=== PATIENT | female | born 1930 | race Caucasian/White ===

== ENCOUNTER 2016-10-28 18:43 | Inpatient (IN) | payer MEDICARE, OTHER ==
[2016-10-28] MEDS ORDERED: FENTANYL CITRATE INJ/PF 100 MCG/2 ML AMPUL IV ONE ×2 (19:08→21:11)
--- NOTE | 2016-10-28 19:32 | ER Document Report ---
ED Fall - General Mode of Arrival: Medic Information source: Patient TRAVEL OUTSIDE OF THE [place] IN LAST 30 DAYS: No - HPI Patient complains to provider of: Left hip pain Occurred: This evening Where: Outdoors Context: Tripped Associated symptoms: Other - see notes above. denies: Lost consciousness Location of injury/pain: Hip - left <AMOR BOTELLO - Last Filed: 10/29/16 03:25> <EVIE ESTRADA - Last Filed: 10/29/16 03:51> - General Chief Complaint: Hip Pain Stated Complaint: FALL/LEG PAIN Time Seen by Provider: 10/28/16 19:00 Notes: 86 year old female presents to the ED via EMS complaining of left hip pain secondary to a fall that occurred earlier this evening. Patient reports that she was at a friend's house and was climbing up the outdoor steps when she tripped and fell on the concrete. Patient denies hitting her head or loss of consciousness. Patient states that she was unable to get herself up. Patient denies any abdominal, neck, or back pain. Patient is not on any blood thinning medications. PCP: Dr. Gonzalez (AMOR BOTELLO) - Related data Allergies/Adverse Reactions: Penicillins Allergy (Verified 10/28/16 19:07) Home Medications: Current Home Medications Cholecalciferol (Vitamin D3) [Vitamin D3] 50,000 units PO ASDIR PRN 10/28/16 [ History] Losartan Potassium [Cozaar 25 mg Tablet] 25 mg PO DAILY 10/28/16 [History] Meclizine HCl [Antivert 25 mg Tablet] 25 mg PO DAILYP PRN 10/28/16 [History] Past Medical History - General Information source: Patient - Social History Smoking Status: Unknown if Ever Smoked Family History: Reviewed & Not Pertinent - Past Medical History Cardiac Medical History: Reports: Hx Hypertension Pulmonary Medical History: Reports: Hx Pneumonia - 1997 AFTER SURGERY Musculoskeltal Medical History: Denies Hx Arthritis Past Surgical History: Reports: Hx Breast Surgery - biopsy, Hx Cholecystectomy, Hx Gynecologic Surgery, Hx Hysterectomy, Hx Thyroid Surgery - Immunizations Hx Diphtheria, Pertussis, Tetanus Vaccination: Yes - Mar Hx Pneumococcal Vaccination: 06/20/03 <AMOR BOTELLO - Last Filed: 10/29/16 03:25> Review of Systems - Review of Systems Constitutional: No symptoms reported EENT: No symptoms reported Cardiovascular: No symptoms reported Respiratory: No symptoms reported Gastrointestinal: No symptoms reported. denies: Abdominal pain Genitourinary: No symptoms reported Female Genitourinary: No symptoms reported Musculoskeletal: See HPI, Joint pain - left hip pain. denies: Back pain, Neck pain Skin: No symptoms reported Hematologic/Lymphatic: No symptoms reported Neurological/Psychological: No symptoms reported. denies: Lost consciousness -: Yes All other systems reviewed and negative <AMOR BOTELLO - Last Filed: 10/29/16 03:25> Physical Exam - General General appearance: Alert In distress: None - HEENT Head: Normocephalic, Atraumatic Eyes: Normal Extraocular movements intact: Yes Pupils: PERRL - Respiratory Respiratory status: No respiratory distress Breath sounds: Normal - Cardiovascular Rhythm: Regular Heart sounds: Normal auscultation - Abdominal Inspection: Normal Distension: No distension Tenderness: Nontender - Back Back: Normal, Nontender - Extremities General upper extremity: Normal inspection, Normal ROM General lower extremity: No: Normal inspection - see hip exam Hip: Other - Pain with palpation of the posterior pelvis on the left side. Good pulses and perfusion no obvious deformity or bony tenderness to the femur knee or distal extremity.. No: Normal - Neurological Neuro grossly intact: Yes Cognition: Normal Orientation: AAOx4 Deanna Coma Scale Eye Opening: Spontaneous Concord Coma Scale Verbal: Oriented Concord Coma Scale Motor: Obeys Commands Concord Coma Scale Total: 15 Speech: Normal - Psychological Associated symptoms: Normal affect, Normal mood - Skin Skin Temperature: Warm Skin Moisture: Dry Skin Color: Normal <AMOR BOTELLO - Last Filed: 10/29/16 03:25> Course - Laboratory Result Diagrams: 10/28/16 20:00 10/28/16 20:00 - Consults Dr. Tejeda Time consulted: 20:50 Dr. Gaffney Time consulted: 20:50 <AMOR BOTELLO - Last Filed: 10/29/16 03:25> - Laboratory Result Diagrams: 10/28/16 20:00 10/28/16 20:00 <EVIE ESTRADA - Last Filed: 10/29/16 03:51> - Re-evaluation Re-evalutation: 10/28/16 21:12 Patient presents emergency department with mechanical fall down a step and pain to left hip and pelvis area. She did not hit her head or lose consciousness on examination she has a GCS of 15 is awake alert with no external signs of trauma to her head neck chest abdomen pelvis and thoracolumbar spine. Pain with palpation of the posterior pelvis on the left side good pulses and perfusion no obvious deformity or bony tenderness to the femur knee or distal extremity. X- ray showed likely a pelvic fracture medical workup nonacute. Spoke with Dr. 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 (EVIE ESTRADA) - Vital Signs Vital signs: Temp Pulse Resp BP Pulse Ox 98.1 F 92 18 125/62 94 10/28/16 22:50 10/28/16 22:50 10/28/16 22:50 10/28/16 22:50 10/28/16 22:50 - Laboratory Laboratory results interpreted by me: 10/28/16 10/28/16 20:00 20:00 WBC 11.3 H RDW 14.7 H Sodium 131.5 L Glucose 126 H - Consults Dr. Tejeda Reason for consultation: 10/29/16 20:50 Dr. Tejeda was paged with no answer. 10/29/16 21:00 Patient was discussed with Dr. Tejeda and states to admit the patient to the hospitalist. (AMOR BOTELLO) Dr. Gaffney Reason for consultation: 10/29/16 20:50 Patient was discussed with Dr. Gaffney who agrees to admit the patient since the patient is not ambulatory. (AMOR BOTELLO) Critical Care Note - Critical Care Note Total time excluding time spent on procedures (mins): 45 <EVIE ESTRADA - Last Filed: 10/29/16 03:51> Discharge <AMOR BOTELLO - Last Filed: 10/29/16 03:25> - Discharge Admitting Provider: Hospitalist Unit Admitted: Medical Floor <EVIE ESTRADA - Last Filed: 10/29/16 03:51> - Discharge Clinical Impression: acute fall with pelvic fracture Condition: Stable Disposition: ADMITTED OBSERVATION Scribe Attestation: 10/28/16 21:12 I personally performed the services described in the documentation reviewed the documentation recorded by my scribe in my presence and it accurately and completely records my words and actions (EVIE ESTRADA) Scribe Documentation - Scribe Written by Rika:: Rika Jones, [id number]/[id number] acting as scribe for :: Loc <AMOR BOTELLO - Last Filed: 10/29/16 03:25>
[2016-10-28 20:11] LABS: ABSOLUTE EOSINOPHILS # (AUTO) 0.2 10^3/uL (0.0-0.6); ABSOLUTE LYMPHOCYTES (AUTO) 1.9 10^3/uL (0.5-4.7); ABSOLUTE NEUT (AUTO) 8.2 10^3/uL (1.7-8.2); BASOPHILS % (AUTO) 0.4 % (0-2); EOSINOPHILS % (AUTO) 1.5 % (0-6); HEMATOCRIT 39.3 % (36.0-47.0); HGB HCT DIFFERENCE -0.3; LYMPHOCYTES % (AUTO) 16.5 % (13-45); MEAN CORPUSCULAR HEMOGLOBIN 28.1 pg (27.0-33.4); MEAN CORPUSCULAR HGB CONC 33.2 g/dL (32.0-36.0); MEAN CORPUSCULAR VOLUME 85 fl (80-97); MONOCYTES % (AUTO) 9.1 % (3-13); RED BLOOD COUNT 4.65 10^6/uL (3.72-5.28); RED CELL DISTRIBUTION WIDTH 14.7 % (11.5-14.0); SEGMENTED NEUTROPHILS % (AUTO) 72.5 % (42-78); WHITE BLOOD COUNT 11.3 10^3/uL (4.0-10.5)
--- NOTE | 2016-10-28 20:13 | RADIOLOGY REPORT (SQ) ---
EXAM DESCRIPTION: CHEST SINGLE VIEW COMPLETED DATE/TIME: 10/28/2016 7:45 pm REASON FOR STUDY: fall likely hip fracture COMPARISON: 05/27/2012 EXAM PARAMETERS: NUMBER OF VIEWS: One view. TECHNIQUE: Single frontal radiographic view of the chest acquired. RADIATION DOSE: NA LIMITATIONS: None. FINDINGS: LUNGS AND PLEURA: No acute opacities, masses or pneumothorax. No pleural effusion. MEDIASTINUM AND HILAR STRUCTURES: Stable, hiatus hernia. HEART AND VASCULAR STRUCTURES: Stable. BONES: No acute findings. HARDWARE: None in the chest. OTHER: No other significant finding. IMPRESSION: NO ACUTE RADIOGRAPHIC FINDING IN THE CHEST. TECHNICAL DOCUMENTATION: JOB ID: [id number]
--- NOTE | 2016-10-28 20:15 | RADIOLOGY REPORT (SQ) ---
EXAM DESCRIPTION: HIP LEFT AP/LATERAL COMPLETED DATE/TIME: 10/28/2016 7:45 pm REASON FOR STUDY: fall deformity COMPARISON: None. NUMBER OF VIEWS: Two views. TECHNIQUE: AP pelvis and additional frog-leg view of the left hip. LIMITATIONS: None. FINDINGS: MINERALIZATION: Normal. LEFT HIP: No fracture or dislocation. No worrisome bone lesions. RIGHT HIP: No fracture or dislocation. No worrisome bone lesions. PUBIS AND ISCHIUM: Left pubic and ischial rami fractures, minimal displacement. PELVIS: No additional fracture. SACRUM: No fracture or dislocation. No worrisome bone lesions. LOWER LUMBAR SPINE: No fracture or dislocation. No worrisome bone lesions. No significant disc disea se. SOFT TISSUES: No findings. OTHER: No other significant finding. IMPRESSION: Left pubic and ischial rami fractures, minimal displacement. No evidence for femoral fr acture. TECHNICAL DOCUMENTATION: JOB ID: [id number] [employer]- All Rights Reserved
[2016-10-28 20:33] LABS: ANION GAP 10 (5-19); BLOOD UREA NITROGEN 16 mg/dL (7-20); CALCIUM 9.2 mg/dL (8.4-10.2); CARBON DIOXIDE 24 mmol/L (22-30); CHLORIDE 98 mmol/L (98-107); CREATININE RESULT 0.76 mg/dL (0.52-1.25); GLUCOSE 126 mg/dL (75-110); POTASSIUM 4.4 mmol/L (3.6-5.0); SODIUM 131.5 mmol/L (137-145)
[2016-10-28] MEDS ORDERED: HYDRALAZINE HCL INJ/PF 20 MG/1 ML SDV IV PRN (21:25)
[2016-10-28] MEDS ORDERED: FENTANYL CITRATE INJ/PF 100 MCG/2 ML AMPUL IV PRN (21:25)
[2016-10-28] MEDS ORDERED: ACETAMINOPHEN 325 MG TABLET PO PRN (21:25)
[2016-10-28] MEDS ORDERED: MAG HYDROX/AL HYDROX/SIMETH SUSP 30 ML UDCUP PO PRN (21:25)
[2016-10-28] MEDS ORDERED: NORMAL SALINE 1000 ML 1,000 ML IV ONE (21:28)
[2016-10-28] MEDS ORDERED: HEPARIN SOD (PORCINE) 5,000 UNIT/ML 1 ML SYRINGE SUBCUT ONE (22:45)
--- NOTE | 2016-10-28 23:38 | PDOC H&P ---
History of Present Illness Admission Date/PCP: 10/28/16 21:25 EILA IBARRA MD Patient complains of: Left-sided hip pain History of Present Illness: SANTIAGO GLEZ is a 86 year old female past medical history of hypertension who had been in her usual state of health until 1 hour prior to presentation. Patient tripped on a step resulting in fall and left-sided hip pain. She denies preceding dizziness, palpitations or blurred vision. She denies additional trauma, loss of consciousness or incontinence. In the emergency room she requires narcotic analgesic for intractable pain and unable to bear weight for a left sided pubic and ischial rami fracture with minimal displacement. She is referred to the hospitalist for admission. She denies new medications and is otherwise felt well. Past Medical History Cardiac Medical History: Reports: Hyperlipidema, Hypertension Denies: Coronary Artery Disease, Myocardial Infarction Pulmonary Medical History: Reports: Pneumonia - 1997 AFTER SURGERY Denies: Asthma, Bronchitis, Chronic Obstructive Pulmonary Disease (COPD) Neurological Medical History: Denies: Seizures GI Medical History: Denies: Hepatitis, Hiatal Hernia Musculoskeltal Medical History: Denies: Arthritis Hematology: Reports: Anemia Denies: Sickle Cell Disease Past Surgical History Past Surgical History: Reports: Cholecystectomy, Hysterectomy Denies: Amputation, Mastectomy, Pacemaker Social History Information Source: Patient Lives with: Alone Smoking Status: Unknown if Ever Smoked Frequency of Alcohol Use: None - Advance Directive Resuscitation Status: Full Code Family History Family History: Hypertension Parental Family History Reviewed: Yes Children Family History Reviewed: Yes Sibling(s) Family History Reviewed.: Yes Medication/Allergy Home Medications: Cholecalciferol (Vitamin D3) [Vitamin D3] 50,000 units PO ASDIR PRN 10/28/16 Losartan Potassium [Cozaar 25 mg Tablet] 25 mg PO DAILY 10/28/16 Meclizine HCl [Antivert 25 mg Tablet] 25 mg PO DAILYP PRN 10/28/16 Allergies/Adverse Reactions: Penicillins Allergy (Verified 10/28/16 19:07) Review of Systems Constitutional: ABSENT: chills, fever(s), headache(s), weight gain, weight loss Eyes: ABSENT: visual disturbances Ears: ABSENT: hearing changes Cardiovascular: ABSENT: chest pain, dyspnea on exertion, edema, orthropnea, palpitations Respiratory: ABSENT: cough, hemoptysis Gastrointestinal: ABSENT: abdominal pain, constipation, diarrhea, hematemesis, hematochezia, nausea, vomiting Genitourinary: ABSENT: dysuria, hematuria Musculoskeletal: ABSENT: joint swelling Integumentary: ABSENT: rash, wounds Neurological: ABSENT: abnormal gait, abnormal speech, confusion, dizziness, focal weakness, syncope Psychiatric: ABSENT: anxiety, depression, homidical ideation, suicidal ideation Endocrine: ABSENT: cold intolerance, heat intolerance, polydipsia, polyuria Hematologic/Lymphatic: ABSENT: easy bleeding, easy bruising Physical Exam Vital Signs: Temp Pulse Resp BP Pulse Ox 98.1 F 92 18 125/62 94 10/28/16 22:50 10/28/16 22:50 10/28/16 22:50 10/28/16 22:50 10/28/16 22:50 Intake & Output 10/27/16 10/28/16 10/29/16 11:59 11:59 11:59 Weight 75 kg General appearance: PRESENT: no acute distress, well-developed, well-nourished Head exam: PRESENT: atraumatic, normocephalic Eye exam: PRESENT: conjunctiva pink, EOMI, PERRLA. ABSENT: scleral icterus Ear exam: PRESENT: normal external ear exam Mouth exam: PRESENT: moist, tongue midline Neck exam: ABSENT: carotid bruit, JVD, lymphadenopathy, thyromegaly Respiratory exam: PRESENT: clear to auscultation abelardo. ABSENT: rales, rhonchi, wheezes Cardiovascular exam: PRESENT: RRR. ABSENT: diastolic murmur, rubs, systolic murmur Pulses: PRESENT: normal dorsalis pedis pul Vascular exam: PRESENT: normal capillary refill GI/Abdominal exam: PRESENT: normal bowel sounds, soft. ABSENT: distended, guarding, mass, organolmegaly, rebound, tenderness Rectal exam: PRESENT: deferred Extremities exam: PRESENT: full ROM, tenderness - Left lower extremity pain with active movement. ABSENT: calf tenderness, clubbing, pedal edema Neurological exam: PRESENT: alert, awake, oriented to person, oriented to place , oriented to time, oriented to situation, CN II-XII grossly intact. ABSENT: motor sensory deficit Psychiatric exam: PRESENT: appropriate affect, normal mood. ABSENT: homicidal ideation, suicidal ideation Skin exam: PRESENT: dry, intact, warm. ABSENT: cyanosis, rash Results Impressions: Chest X-Ray 10/28/16 19:07 IMPRESSION: NO ACUTE RADIOGRAPHIC FINDING IN THE CHEST. Hip X-Ray 10/28/16 19:08 IMPRESSION: Left pubic and ischial rami fractures, minimal displacement. No evidence for femoral fracture. Assessment & Plan - Diagnosis (1) Pelvic fracture Is this a current diagnosis for this admission?: YesPlan: Symptomatic management, immobilization, orthopedic surgery consultation and physical therapy (2) Gait disorder Is this a current diagnosis for this admission?: YesPlan: Narrative pelvic fracture physical therapy consult ordered (3) Intractable pain Is this a current diagnosis for this admission?: YesPlan: Tylenol, Toradol and fentanyl as needed with bowel regiment - Time Time Spent: 30 to 50 Minutes - Inpatient Certification Medical Necessity: Need Close Monitoring Due to Risk of Patient Decompensation
[2016-10-29] MEDS: KETOROLAC TROMETHAMINE INJ/PF 30 MG/1 ML SDV IV PRN ×3 (03:21→18:36)
[2016-10-29 04:59] LABS: ABSOLUTE LYMPHOCYTES (AUTO) 0.6 10^3/uL (0.5-4.7); ABSOLUTE MONOCYTES (AUTO) 0.8 10^3/uL (0.1-1.4); ABSOLUTE NEUT (AUTO) 7.9 10^3/uL (1.7-8.2); BASOPHILS % (AUTO) 0.3 % (0-2); HEMATOCRIT 33.6 % (36.0-47.0); HEMOGLOBIN 11.4 g/dL (12.0-15.5); HGB HCT DIFFERENCE 0.6; LYMPHOCYTES % (AUTO) 6.9 % (13-45); MEAN CORPUSCULAR HEMOGLOBIN 28.7 pg (27.0-33.4); MEAN CORPUSCULAR VOLUME 85 fl (80-97); MONOCYTES % (AUTO) 8.3 % (3-13); RED BLOOD COUNT 3.98 10^6/uL (3.72-5.28); RED CELL DISTRIBUTION WIDTH 14.6 % (11.5-14.0); SEGMENTED NEUTROPHILS % (AUTO) 84.5 % (42-78); WHITE BLOOD COUNT 9.3 10^3/uL (4.0-10.5)
[2016-10-29] MEDS: HEPARIN SOD (PORCINE) 5,000 UNIT/ML 1 ML SYRINGE SUBCUT SCH ×3 (05:10→21:54)
[2016-10-29 05:22] LABS: ANION GAP 6 (5-19); BLOOD UREA NITROGEN 17 mg/dL (7-20); CALCIUM 8.3 mg/dL (8.4-10.2); CARBON DIOXIDE 21 mmol/L (22-30); CHLORIDE 103 mmol/L (98-107); CREATININE RESULT 0.74 mg/dL (0.52-1.25); GLUCOSE 128 mg/dL (75-110); POTASSIUM 4.5 mmol/L (3.6-5.0); SODIUM 130.1 mmol/L (137-145)
[2016-10-29] MEDS: LOSARTAN POTASSIUM 25 MG TABLET PO SCH (09:53)
[2016-10-29] MEDS: DOCUSATE SODIUM 100 MG CAPSULE PO SCH ×2 (09:53→18:33)
--- NOTE | 2016-10-29 10:32 | PDOC CONSULTATION ---
History of Present Illness Admission Date/PCP: 10/28/16 21:25 ELIA IBARRA MD Patient complains of: Left hip pain History of Present Illness: SANTIAGO GLEZ is a 86 year old female who sustained a fall after tripping over a curb onto her left side last evening. Patient notable pain and inability to weight-bear. She was brought to the emergency room where x-rays demonstrated pelvic fracture. She states her pain has somewhat improved since yesterday she has more motion however the pain continues to be limiting. She denies numbness or tingling. Currently not being treated for osteoporosis but was on Fosamax years ago. Current pain 07/26. Past Medical History Cardiac Medical History: Reports: Hyperlipidema, Hypertension Denies: Coronary Artery Disease, Myocardial Infarction Pulmonary Medical History: Reports: Pneumonia - 1997 AFTER SURGERY Denies: Asthma, Bronchitis, Chronic Obstructive Pulmonary Disease (COPD) Neurological Medical History: Denies: Seizures GI Medical History: Denies: Hepatitis, Hiatal Hernia Musculoskeltal Medical History: Denies: Arthritis Hematology: Reports: Anemia Denies: Sickle Cell Disease Past Surgical History Past Surgical History: Reports: Cholecystectomy, Hysterectomy Denies: Amputation, Mastectomy, Pacemaker Social History Lives with: Alone Smoking Status: Unknown if Ever Smoked Frequency of Alcohol Use: None - Advance Directive Resuscitation Status: Full Code Family History Family History: Reviewed & Not Pertinent Parental Family History Reviewed: No Children Family History Reviewed: No Sibling(s) Family History Reviewed.: No Medication/Allergy Home Medications: Cholecalciferol (Vitamin D3) [Vitamin D3] 50,000 units PO ASDIR PRN 10/28/16 Losartan Potassium [Cozaar 25 mg Tablet] 25 mg PO DAILY 10/28/16 Meclizine HCl [Antivert 25 mg Tablet] 25 mg PO DAILYP PRN 10/28/16 Allergies/Adverse Reactions: Penicillins Allergy (Verified 10/28/16 19:07) Review of Systems All systems: as per PMH Constitutional: ABSENT: chills, fever(s), headache(s), weight gain, weight loss Eyes: ABSENT: visual disturbances Ears: ABSENT: hearing changes Cardiovascular: ABSENT: chest pain, dyspnea on exertion, edema, orthropnea, palpitations Respiratory: ABSENT: cough, hemoptysis Gastrointestinal: ABSENT: abdominal pain, constipation, diarrhea, hematemesis, hematochezia, nausea, vomiting Genitourinary: ABSENT: dysuria, hematuria Musculoskeletal: PRESENT: as per HPI Integumentary: ABSENT: rash, wounds Neurological: ABSENT: abnormal gait, abnormal speech, confusion, dizziness, focal weakness, syncope Psychiatric: ABSENT: anxiety, depression, homidical ideation, suicidal ideation Endocrine: ABSENT: cold intolerance, heat intolerance, menstrual abnormalities, polydipsia, polyuria Hematologic/Lymphatic: ABSENT: easy bleeding, easy bruising, lymphadenopathy Physical Exam Vital Signs: Temp Pulse Resp BP Pulse Ox 98.5 F 77 17 127/61 H 94 10/29/16 03:38 10/29/16 03:38 10/29/16 03:38 10/29/16 03:38 10/29/16 03:38 Intake & Output 10/28/16 10/29/16 10/30/16 06:59 06:59 06:59 Intake Total 240 Output Total 0 Balance 240 Weight 75 kg General appearance: PRESENT: no acute distress Head exam: PRESENT: atraumatic, normocephalic Eye exam: PRESENT: conjunctiva pink, EOMI, PERRLA. ABSENT: scleral icterus Ear exam: PRESENT: normal external ear exam Mouth exam: PRESENT: moist, tongue midline Neck exam: PRESENT: full ROM. ABSENT: carotid bruit, JVD, lymphadenopathy, thyromegaly Respiratory exam: PRESENT: unlabored Cardiovascular exam: PRESENT: RRR. ABSENT: diastolic murmur, rubs, systolic murmur Pulses: PRESENT: normal dorsalis pedis pul, +2 pedal pulses bilateral Vascular exam: PRESENT: normal capillary refill GI/Abdominal exam: PRESENT: normal bowel sounds, soft. ABSENT: distended, guarding, mass, organolmegaly, rebound, tenderness Rectal exam: PRESENT: deferred Musculoskeletal exam: PRESENT: other - Left lower extremity: Patient unable to straight leg against resistance positive Stinchfield test. Does have pain with hip range of motion. No tenderness along the trochanter. There is tenderness along the pubis and ischium. No evidence of limb length inequality or malrotation. Intact plantar flexion/dorsiflexion. No calf tenderness. Neurological exam: PRESENT: alert, awake, oriented to person, oriented to place , oriented to time, oriented to situation, CN II-XII grossly intact. ABSENT: motor sensory deficit Psychiatric exam: PRESENT: appropriate affect, normal mood. ABSENT: homicidal ideation, suicidal ideation Skin exam: PRESENT: dry, intact, warm. ABSENT: cyanosis, rash Results Laboratory Results: 10/29/16 04:23 10/29/16 04:23 10/29/16 10/29/16 04:23 04:23 WBC 9.3 RBC 3.98 Hgb 11.4 L Hct 33.6 L MCV 85 MCH 28.7 MCHC 34.0 RDW 14.6 H Plt Count 168 Seg Neutrophils % 84.5 H Lymphocytes % 6.9 L Monocytes % 8.3 Eosinophils % 0.0 Basophils % 0.3 Absolute Neutrophils 7.9 Absolute Lymphocytes 0.6 Absolute Monocytes 0.8 Absolute Eosinophils 0.0 Absolute Basophils 0.0 Sodium 130.1 L Potassium 4.5 Chloride 103 Carbon Dioxide 21 L Anion Gap 6 BUN 17 Creatinine 0.74 Est GFR ( Amer) > 60 Est GFR (Non-Af Amer) > 60 Glucose 128 H Calcium 8.3 L Impressions: Chest X-Ray 10/28/16 19:07 IMPRESSION: NO ACUTE RADIOGRAPHIC FINDING IN THE CHEST. Hip X-Ray 10/28/16 19:08 IMPRESSION: Left pubic and ischial rami fractures, minimal displacement. No evidence for femoral fracture. Status: Image reviewed by me - I reviewed patient's radiographs which demonstrate nondisplaced superior and inferior pubic rami fractures no evidence of angulation. No evidence of pelvic malalignment or instability type pattern. Assessment & Plan - Diagnosis (1) Fracture of pubic ramus Qualifiers: Encounter type: initial encounter Fracture type: closed Laterality : left Qualified Code(s): S32.592A - Other specified fracture of left pubis, initial encounter for closed fracture Is this a current diagnosis for this admission?: YesPlan: After reviewing patient's radiographs he sustained fractures in a fairly pattern. There is no indication for operative intervention. Patient may begin physical therapy with weightbearing as tolerated in her left lower extremity. I have discussed prognosis of the patient's injury including prolonged rehabilitation that will be required in including possible inpatient rehab. Continue heparin for DVT prophylaxis. Also discussed the possibility of osteoporotic treatment as an outpatient with her primary care physician. She will follow-up with me as an outpatient in 14 days. I have discussed patient case with her daughter who agrees with current treatment plan.
--- NOTE | 2016-10-29 11:32 | PROGRESS NOTE E ---
Progress Note NAME: SANTIAGO GLEZ : 1930 AGE: 86Y DATE: 10/29/2016 ROOM: 408 SUBJECTIVE: The patient is currently lying in bed. She has worked with physical therapy. States she feels a little stronger since working with them and feels a little more encouraged. Pain is still an issue, but feels better controlled than when she came in. The patient denied any nausea, vomiting, diarrhea. No shortness of breath, dizziness, chest pain. No fevers, chills. Patient has been afebrile. Blood pressure has been in good range. Patient does not voice any other concerns at this time. REVIEW OF SYSTEMS: The rest of the review of systems negative. MEDICATIONS: Medications have been reviewed. OBJECTIVE: GENERAL: Patient is an 86-year-old female who is awake, alert, and oriented to person, place, time, and situation. She is verbal, conversational, ambulatory. Does not appear to be in any acute distress. VITAL SIGNS FOLLOWS: Temperature 98.5, pulse 77, respirations 17, blood pressure 127/61, oxygen saturation 94% on room air. SKIN: Warm and dry. No rashes. Not diaphoretic. HEENT: Pupils equal, round and reactive to light and accommodation. Conjunctivae are pink. NECK: No JVP. CARDIOVASCULAR: Heart is regular with no murmur or rub. CHEST: Clear, symmetric, unlabored. ABDOMEN: Soft, nontender, nondistended. BACK: No CVA tenderness, sacral edema. EXTREMITIES: No clubbing, cyanosis, or edema. PSYCHIATRIC: Appropriate affect, pleasant mood. DIAGNOSTICS: Lab values are as follows: Hematology obtained on 10/29/2016: WBC 9.3, hemoglobin 11.4, hematocrit 33.6, platelet count is 168,000. Chemistry obtained on 10/29/2016: Sodium 130, potassium 4.5, chloride 103, carbon dioxide 21, BUN 17, creatinine 0.74, glucose 128, calcium 8.3. IMPRESSION AND PLAN: 1. LEFT PUBIC AND ISCHIAL RAMI FRACTURE. I do appreciate orthopedic input on this. Will continue physical therapy and pain management as needed. 2. DEEP VENOUS THROMBOSIS PROPHYLAXIS. Will continue subcutaneous heparin. 3. HYPERTENSION. Will continue the patient's home blood pressure medications. DISPOSITION: The patient is a FULL CODE. Pending patient's symptomatology and diagnostic findings, we will reevaluate in the a.m. Time spent on this followup including assessment, plan, physical examination, and patient education is 25 minutes. DICTATING PHYSICIAN: JUAREZ HOLBROOK NP [id number] PHY#: [id number] ID: [id number] JOB#: [id number] ACCT: [id number] cc: >
[2016-10-30] MEDS: KETOROLAC TROMETHAMINE INJ/PF 30 MG/1 ML SDV IV PRN ×4 (00:28→21:07)
[2016-10-30] MEDS: HEPARIN SOD (PORCINE) 5,000 UNIT/ML 1 ML SYRINGE SUBCUT SCH ×3 (05:15→21:04)
[2016-10-30] MEDS: LOSARTAN POTASSIUM 25 MG TABLET PO SCH (09:50)
[2016-10-30] MEDS: DOCUSATE SODIUM 100 MG CAPSULE PO SCH ×2 (09:50→17:14)
--- NOTE | 2016-10-30 13:37 | PROGRESS NOTE E ---
Progress Note NAME: SANTIAGO GLEZ : 1930 AGE: 86Y DATE: ROOM: 408 SUBJECTIVE: Ms. Glez is currently lying in bed. She states that she still has a significant amount of pain. She has not worked with physical therapy yet today, however. She has had significant pains. I did discuss disposition with the patient. She does live alone. She has a son that does not live around here. I did make the patient aware that if she wanted to go to a home environment, she was going to need help at home for the time being. The patient has asked to speak with a renal social worker. We will arrange this. The patient does not voice any other concerns at this time. REVIEW OF SYSTEMS: The rest of the review of systems are negative. MEDICATIONS: Medications have been reviewed. OBJECTIVE: Ms. Glez is an 86-year-old female who is awake and alert. She is oriented to person, place, time and situation. She is verbal, conversational, and does not appear to be in any acute distress. VITAL SIGNS: Temperature is 97.9, pulse 84, respirations 18, blood pressure is 147/59, oxygen saturation is 97% on room air. SKIN: Warm and dry, no rash. Not diaphoretic. HEENT: Pupils equal, round and reactive to light and accommodation. Conjunctivae pink. No JVP. CARDIOVASCULAR: Heart is regular with no murmur or rub. CHEST: Clear, symmetric, unlabored. ABDOMEN: Soft, nontender, nondistended. BACK: No CVA tenderness or sacral edema. EXTREMITIES: No clubbing, cyanosis or edema. PSYCHIATRIC: Appropriate affect. Pleasant mood. DIAGNOSTICS: Lab values are as follows: Hematology obtained on 10/29/2016: WBC 9.3, hemoglobin 11.4, hematocrit 33.6, platelet count is 168,000. Chemistry obtained on 10/29/2016: Sodium 130, potassium 4.5, chloride 103, carbon dioxide 21, BUN 17, creatinine 0.74, glucose 128, calcium 8.3, troponin is 0.012. IMPRESSION AND PLAN: 1. LEFT PUBIC AND ISCHIAL RAMI FRACTURES. I do appreciate Orthopedic input on this. This is nonoperative. Will continue physical therapy and pain management. The patient will need home health physical therapy and help around the clock. Ideally, the patient will need rehab. However, she does not need inpatient. 2. HYPERTENSION. Blood pressures have been in the good range. Continue current medication. 3. DEEP VENOUS THROMBOSIS PROPHYLAXIS. Will continue subcutaneous heparin. 4. HYPONATREMIA. Mild and most likely due to HCTZ. DISPOSITION: The patient is a FULL CODE. Pending the patient's symptomatology and diagnostic findings, the patient can be discharged whenever disposition has been solidified. Time spent on this followup including assessment, plan, physical examination, and patient education is 25 minutes. DICTATING PHYSICIAN: JUAREZ HOLBROOK NP [id number] PHY#: [id number] [id number] JOB#: [id number] ACCT: [id number] cc: > MTDD
[2016-10-31] MEDS: KETOROLAC TROMETHAMINE INJ/PF 30 MG/1 ML SDV IV PRN ×3 (02:21→22:20)
[2016-10-31] MEDS: ZOLPIDEM TARTRATE 5 MG TABLET PO PRN ×2 (02:40→22:20)
[2016-10-31] MEDS: HEPARIN SOD (PORCINE) 5,000 UNIT/ML 1 ML SYRINGE SUBCUT SCH ×3 (06:09→22:20)
[2016-10-31 07:05] LABS: ANION GAP 7 (5-19); BLOOD UREA NITROGEN 15 mg/dL (7-20); CALCIUM 8.1 mg/dL (8.4-10.2); CARBON DIOXIDE 22 mmol/L (22-30); CHLORIDE 100 mmol/L (98-107); CREATININE RESULT 0.63 mg/dL (0.52-1.25); GLUCOSE 107 mg/dL (75-110); MAGNESIUM 1.9 mg/dL (1.6-2.3); SODIUM 128.8 mmol/L (137-145)
[2016-10-31] MEDS ORDERED: ONDANSETRON 4 MG TAB.RAPDIS PO PRN (08:42)
[2016-10-31] MEDS: OXYCODONE HCL IR 5 MG TABLET PO PRN ×2 (08:47→15:41)
[2016-10-31] MEDS ORDERED: NORMAL SALINE 500 ML IV PRN (09:00)
[2016-10-31] MEDS ORDERED: CYCLOBENZAPRINE HCL 10 MG TABLET PO ONE (09:00)
[2016-10-31] MEDS: DOCUSATE SODIUM 100 MG CAPSULE PO SCH ×2 (09:10→17:40)
[2016-10-31] MEDS ORDERED: LOSARTAN POTASSIUM 25 MG TABLET PO SCH (10:00)
[2016-10-31] MEDS: LOSARTAN POTASSIUM 50 MG TABLET PO SCH ×2 (12:09→22:20)
--- NOTE | 2016-10-31 15:29 | PROGRESS NOTE E ---
Progress Note NAME: SANTIAGO GLEZ : 1930 AGE: 86Y DATE: 10/31/2016 ROOM: 408 SUBJECTIVE: The patient is lying in bed. Earlier this morning, she was complaining of a significant amount of pain as well as muscle spasms. This did improve with current regimen. The patient has been participating in therapies. Once again discussed the case with EHR. The patient does not meet inpatient criteria and will remain in observation status. Social Work has been notified and the family is to discuss a discharge disposition. The patient does not voice any other concerns at this time. REVIEW OF SYSTEMS: The rest of the review of systems is negative. MEDICATIONS: Medications have been reviewed. OBJECTIVE: GENERAL: The patient is a 86-year-old female who is awake, alert, and oriented to person, place, time, and situation. She is verbal and conversational and does not appear to be in any acute distress. VITAL SIGNS: Temperature is 97.8, pulse 84, respirations 19, blood pressure is 134/57, oxygen saturation is 97% on room air. SKIN: Warm and dry. No rash. She is not diaphoretic. HEENT: Pupils equal, round, and reactive to light and accommodation. Conjunctivae pink. NECK: No JVD. CARDIOVASCULAR SYSTEM: Heart is regular. There is no murmur or rub. CHEST: Clear, symmetrical, unlabored. ABDOMEN: Soft, nontender, and nondistended. BACK: No CVA tenderness or sacral edema. EXTREMITIES: No clubbing, cyanosis, edema. PSYCHIATRIC: Appropriate affect, pleasant mood. DIAGNOSTIC DATA: Lab values are as follows: Hematology obtained on 10/29/2016: WBC's are 9.3; hemoglobin is 11.4; hematocrit is 33.6; platelet count is 168,000. Chemistries obtained on 10/31/2016: Sodium is 128, potassium 4.0, chloride is 100, carbon dioxide 22, BUN 15, creatinine is 0.63, glucose 107, calcium is 8.1, magnesium is 1.9, albumin is 2.8. IMPRESSION AND PLAN: 1. LEFT PUBIC AND ISCHIAL RAMI FRACTURES. Do appreciate Orthopedic input on this. Of course, this is nonoperative. Will continue aggressive pain management as well as physical therapy. The patient ideally would need inpatient rehab, hopefully this can be feasible. 2. HYPERTENSION. BLOOD PRESSURES HAVE BEEN SOMEWHAT ELEVATED. I DID CORRELATE THIS WITH PAIN MOST LIKELY. 3. HYPONATREMIA. This is relatively mild and likely due to hydrochlorothiazide, have held this. Will repeat chemistries and follow. 4. HYPOCALCEMIA. THE PATIENT'S ALBUMIN IS QUITE LOW. CORRECTED CALCIUM IS 9.6. DISPOSITION: The patient is a FULL CODE. Pending the patient's symptomatology and diagnostic findings, will reevaluate in the a.m. The patient can be transferred to a rehab facility as soon as arrangements are made. TIME: Time spent on this followup, including assessment, plan, physical examination, patient education, and resource alignment was 25 minutes. DICTATING PHYSICIAN: JUAREZ HOLBROOK NP [id number] PHY#: [id number] ID: [id number] JOB#: [id number] ACCT: [id number] cc: > MTDD
[2016-10-31] MEDS: CYCLOBENZAPRINE HCL 10 MG TABLET PO PRN (15:42)
[2016-11-01] MEDS: CYCLOBENZAPRINE HCL 10 MG TABLET PO PRN ×2 (04:32→16:05)
[2016-11-01] MEDS: HEPARIN SOD (PORCINE) 5,000 UNIT/ML 1 ML SYRINGE SUBCUT SCH ×3 (06:44→22:02)
[2016-11-01] MEDS: KETOROLAC TROMETHAMINE INJ/PF 30 MG/1 ML SDV IV PRN ×2 (08:50→22:02)
[2016-11-01] MEDS: OXYCODONE HCL IR 5 MG TABLET PO PRN ×2 (08:50→16:05)
[2016-11-01] MEDS: DOCUSATE SODIUM 100 MG CAPSULE PO SCH ×2 (09:00→18:16)
[2016-11-01] MEDS: LOSARTAN POTASSIUM 50 MG TABLET PO SCH ×2 (09:01→22:02)
[2016-11-01] MEDS ORDERED: NORMAL SALINE 1000 ML 1,000 ML IV PRN (13:54)
--- NOTE | 2016-11-01 16:05 | PDOC PROGRESS REPORT ---
Subjective Progress Note for:: 11/01/16 Subjective:: Patient seen on morning rounds. She is presently resting in bed. She states her pelvic pain has improved somewhat since yesterday. She denies any shortness of breath, dyspnea or chest pain. She denies any nausea, vomiting, or abdominal pain. She does complain of some mild constipation issues. She states she did get out of bed with physical therapy yesterday. She admits to not eating and drinking as she normally does because of pain and being depressed with her current situation. Rest review of systems is negative. Physical Exam Vital Signs: Temp Pulse Resp BP Pulse Ox 97.9 F 85 17 118/54 L 95 11/01/16 11:59 11/01/16 11:59 11/01/16 11:59 11/01/16 11:59 11/01/16 11:59 Intake & Output 10/31/16 11/01/16 11/02/16 06:59 06:59 06:59 Intake Total 657 610 Output Total 850 Balance -193 610 Weight 78.1 kg 74.3 kg General appearance: PRESENT: no acute distress, well-developed, well-nourished Head exam: PRESENT: atraumatic, normocephalic Eye exam: PRESENT: conjunctiva pink, EOMI, PERRLA. ABSENT: scleral icterus Ear exam: PRESENT: normal external ear exam Mouth exam: PRESENT: moist, tongue midline Neck exam: PRESENT: carotid bruit Respiratory exam: PRESENT: clear to auscultation abelardo. ABSENT: rales, rhonchi, wheezes Cardiovascular exam: PRESENT: RRR. ABSENT: diastolic murmur, rubs, systolic murmur Pulses: PRESENT: normal dorsalis pedis pul Vascular exam: PRESENT: normal capillary refill GI/Abdominal exam: PRESENT: normal bowel sounds, soft. ABSENT: distended, guarding, mass, organolmegaly, rebound, tenderness Rectal exam: PRESENT: deferred Extremities exam: PRESENT: tenderness - left hip Musculoskeletal exam: PRESENT: ambulatory, normal inspection, tenderness Neurological exam: PRESENT: alert, awake, oriented to person, oriented to place , oriented to time, oriented to situation, CN II-XII grossly intact. ABSENT: motor sensory deficit Psychiatric exam: PRESENT: appropriate affect, normal mood. ABSENT: homicidal ideation, suicidal ideation Skin exam: PRESENT: dry, intact, warm. ABSENT: cyanosis, rash Results Laboratory Results: 10/29/16 04:23 10/31/16 05:45 Impressions: Chest X-Ray 10/28/16 19:07 IMPRESSION: NO ACUTE RADIOGRAPHIC FINDING IN THE CHEST. Hip X-Ray 10/28/16 19:08 IMPRESSION: Left pubic and ischial rami fractures, minimal displacement. No evidence for femoral fracture. Assessment & Plan - Diagnosis (1) Fracture of pubic ramus Qualifiers: Encounter type: initial encounter Fracture type: closed Laterality : left Qualified Code(s): S32.592A - Other specified fracture of left pubis, initial encounter for closed fracture Is this a current diagnosis for this admission?: YesPlan: Pain control , PT and short term rehab (2) Pelvic fracture Qualifiers: Encounter type: initial encounter Is this a current diagnosis for this admission?: YesPlan: Same as #1 (3) Hyponatremia Is this a current diagnosis for this admission?: YesPlan: Most likely due to poor oral intake. We will gently rehydrate with IV normal saline. Continue to monitor. (4) Gait disorder Is this a current diagnosis for this admission?: YesPlan: With physical therapy - Time Time Spent with patient: 25-34 minutes Critical Time spent with patient: 15-24 minutes Medications reviewed and adjusted accordingly: Yes Anticipated discharge: Acute Rehab Within: when bed available
[2016-11-01] MEDS: ZOLPIDEM TARTRATE 5 MG TABLET PO PRN (22:02)
[2016-11-02 05:25] LABS: ANION GAP 5 (5-19); BLOOD UREA NITROGEN 18 mg/dL (7-20); CALCIUM 7.9 mg/dL (8.4-10.2); CARBON DIOXIDE 22 mmol/L (22-30); CHLORIDE 103 mmol/L (98-107); CREATININE RESULT 0.79 mg/dL (0.52-1.25); GLUCOSE 94 mg/dL (75-110); POTASSIUM 4.3 mmol/L (3.6-5.0); SODIUM 130.3 mmol/L (137-145)
[2016-11-02] MEDS: HEPARIN SOD (PORCINE) 5,000 UNIT/ML 1 ML SYRINGE SUBCUT SCH ×3 (06:10→21:45)
--- NOTE | 2016-11-02 08:03 | PDOC PROGRESS REPORT ---
Subjective Progress Note for:: 11/02/16 Subjective:: Patient denies any significant pain Physical Exam Vital Signs: Temp Pulse Resp BP Pulse Ox 36.4 C 84 16 125/56 L 96 11/02/16 00:39 11/02/16 00:39 11/02/16 00:39 11/02/16 00:39 11/02/16 00:39 Intake & Output 11/01/16 11/02/16 11/03/16 06:59 06:59 06:59 Intake Total 610 610 Output Total 250 Balance 610 360 Weight 74.3 kg 75 kg General appearance: PRESENT: no acute distress Head exam: PRESENT: normocephalic Respiratory exam: PRESENT: unlabored Cardiovascular exam: PRESENT: RRR Pulses: PRESENT: +1 pedal pulses bilateral Extremities exam: PRESENT: other - Lungs equal. Distal neurovascular examination intact. Results Laboratory Results: 10/29/16 04:23 11/02/16 04:55 11/02/16 04:55 Sodium 130.3 L Potassium 4.3 Chloride 103 Carbon Dioxide 22 Anion Gap 5 BUN 18 Creatinine 0.79 Est GFR ( Amer) > 60 Est GFR (Non-Af Amer) > 60 Glucose 94 Calcium 7.9 L Impressions: Chest X-Ray 10/28/16 19:07 IMPRESSION: NO ACUTE RADIOGRAPHIC FINDING IN THE CHEST. Hip X-Ray 10/28/16 19:08 IMPRESSION: Left pubic and ischial rami fractures, minimal displacement. No evidence for femoral fracture. Status: Imported from PACS Assessment & Plan - Diagnosis (1) Pelvic fracture Qualifiers: Encounter type: initial encounter Is this a current diagnosis for this admission?: YesPlan: 1-year-old white female with a stable pelvic fracture being treated nonoperatively with immobilization and appropriate analgesics. Anticipate the need for retirement facility placement. - Time Time Spent with patient: 15-24 minutes Anticipated discharge: SNF
[2016-11-02] MEDS ORDERED: NORMAL SALINE 1000 ML 1,000 ML IV PRN (09:35)
[2016-11-02] MEDS: LOSARTAN POTASSIUM 50 MG TABLET PO SCH ×2 (10:27→21:45)
[2016-11-02] MEDS: DOCUSATE SODIUM 100 MG CAPSULE PO SCH ×2 (10:27→18:23)
[2016-11-02] MEDS: POLYETHYLENE GLYCOL 3350 POWDER 17 GM/1 PACKET PO SCH (10:28)
[2016-11-02] MEDS: KETOROLAC TROMETHAMINE INJ/PF 30 MG/1 ML SDV IV PRN (13:09)
--- NOTE | 2016-11-02 13:37 | PDOC PROGRESS REPORT ---
Subjective Progress Note for:: 11/02/16 Subjective:: Patient seen on morning rounds. She is presently resting in bed. She states her pelvic pain is still present, but has improved somewhat since yesterday. She denies any shortness of breath, dyspnea or chest pain. She denies any nausea, vomiting, or abdominal pain. She does complain of some mild constipation issues. She states she did get out of bed with physical therapy. She admits to not eating and drinking as she normally does because of pain and being depressed with her current situation. Rest review of systems is negative. Physical Exam Vital Signs: Temp Pulse Resp BP Pulse Ox 98.4 F 92 16 150/51 H 98 11/02/16 12:00 11/02/16 12:00 11/02/16 12:00 11/02/16 12:00 11/02/16 12:00 Intake & Output 11/01/16 11/02/16 11/03/16 06:59 06:59 06:59 Intake Total 610 610 Output Total 250 Balance 610 360 Weight 74.3 kg 75 kg General appearance: PRESENT: no acute distress, well-developed, well-nourished Head exam: PRESENT: atraumatic, normocephalic Eye exam: PRESENT: conjunctiva pink, EOMI, PERRLA. ABSENT: scleral icterus Ear exam: PRESENT: normal external ear exam Mouth exam: PRESENT: moist, tongue midline Neck exam: ABSENT: carotid bruit, JVD, lymphadenopathy, thyromegaly Respiratory exam: PRESENT: clear to auscultation abelardo. ABSENT: rales, rhonchi, wheezes Cardiovascular exam: PRESENT: RRR. ABSENT: diastolic murmur, rubs, systolic murmur Pulses: PRESENT: normal dorsalis pedis pul Vascular exam: PRESENT: normal capillary refill GI/Abdominal exam: PRESENT: normal bowel sounds, soft. ABSENT: distended, guarding, mass, organolmegaly, rebound, tenderness Rectal exam: PRESENT: deferred Extremities exam: PRESENT: full ROM. ABSENT: calf tenderness, clubbing, pedal edema Neurological exam: PRESENT: alert, awake, oriented to person, oriented to place , oriented to time, oriented to situation, CN II-XII grossly intact. ABSENT: motor sensory deficit Psychiatric exam: PRESENT: appropriate affect, normal mood. ABSENT: homicidal ideation, suicidal ideation Skin exam: PRESENT: abrasion Results Laboratory Results: 10/29/16 04:23 11/02/16 04:55 11/02/16 04:55 Sodium 130.3 L Potassium 4.3 Chloride 103 Carbon Dioxide 22 Anion Gap 5 BUN 18 Creatinine 0.79 Est GFR ( Amer) > 60 Est GFR (Non-Af Amer) > 60 Glucose 94 Calcium 7.9 L Impressions: Chest X-Ray 10/28/16 19:07 IMPRESSION: NO ACUTE RADIOGRAPHIC FINDING IN THE CHEST. Hip X-Ray 10/28/16 19:08 IMPRESSION: Left pubic and ischial rami fractures, minimal displacement. No evidence for femoral fracture. Assessment & Plan - Diagnosis (1) Hyponatremia Is this a current diagnosis for this admission?: YesPlan: Most likely due to poor oral intake. Her appetite is somewhat improved Improved with IV hydration. Will complete current infusion and monitor (2) Fracture of pubic ramus Qualifiers: Encounter type: initial encounter Fracture type: closed Laterality : left Qualified Code(s): S32.592A - Other specified fracture of left pubis, initial encounter for closed fracture Is this a current diagnosis for this admission?: YesPlan: Pain control , PT and short term rehab (3) Pelvic fracture Qualifiers: Encounter type: initial encounter Is this a current diagnosis for this admission?: YesPlan: Same as #1 (4) Gait disorder Is this a current diagnosis for this admission?: YesPlan: With physical therapy - Time Time Spent with patient: 25-34 minutes Critical Time spent with patient: 15-24 minutes Medications reviewed and adjusted accordingly: Yes Anticipated discharge: Acute Rehab Within: when bed available
[2016-11-02] MEDS: OXYCODONE HCL IR 5 MG TABLET PO PRN (20:48)
[2016-11-03] MEDS: HEPARIN SOD (PORCINE) 5,000 UNIT/ML 1 ML SYRINGE SUBCUT SCH ×3 (06:04→21:42)
[2016-11-03 06:38] LABS: ANION GAP 8 (5-19); BLOOD UREA NITROGEN 17 mg/dL (7-20); CALCIUM 8.2 mg/dL (8.4-10.2); CARBON DIOXIDE 21 mmol/L (22-30); CHLORIDE 105 mmol/L (98-107); CREATININE RESULT 0.71 mg/dL (0.52-1.25); GLUCOSE 88 mg/dL (75-110); POTASSIUM 4.2 mmol/L (3.6-5.0); SODIUM 133.7 mmol/L (137-145)
[2016-11-03 10:52] LABS: APPEARANCE,URINE SLIGHTLY-CLOUDY; BILIRUBIN,URINE NEGATIVE (NEGATIVE); GLUCOSE, URINE NEGATIVE (NEGATIVE); KETONES,URINE TRACE mg/dL (NEGATIVE); LEUKOCYTE ESTERASE,URINE NEGATIVE (NEGATIVE); NITRITE,URINE NEGATIVE (NEGATIVE); PROTEIN,URINE NEGATIVE (NEGATIVE); URINE SPECIFIC GRAVITY 1.011; UROBILINOGEN,URINE NEGATIVE mg/dL (<2.0)
[2016-11-03] MEDS: DOCUSATE SODIUM 100 MG CAPSULE PO SCH ×2 (11:50→18:42)
[2016-11-03] MEDS: POLYETHYLENE GLYCOL 3350 POWDER 17 GM/1 PACKET PO SCH (11:50)
[2016-11-03] MEDS: LOSARTAN POTASSIUM 50 MG TABLET PO SCH ×2 (11:51→21:41)
[2016-11-03] MEDS ORDERED: BISACODYL 10 MG SUPP.RECT PR ONE (12:00)
--- NOTE | 2016-11-03 14:50 | PDOC PROGRESS REPORT ---
Subjective Progress Note for:: 11/03/16 Subjective:: Patient seen on morning rounds. She is presently resting in bed. She states her pelvic pain is still present, but has improved somewhat since yesterday. She denies any shortness of breath, dyspnea or chest pain. She denies any nausea, vomiting, or abdominal pain. She still has not had a bowel movement. She states she did get out of bed with physical therapy. She admits to not eating and drinking as she normally does because of pain and being depressed with her current situation. Rest review of systems is negative. Physical Exam Vital Signs: Temp Pulse Resp BP Pulse Ox 97.9 F 97 15 162/76 H 96 11/03/16 11:47 11/03/16 11:47 11/03/16 11:47 11/03/16 11:47 11/03/16 11:47 Intake & Output 11/02/16 11/03/16 11/04/16 06:59 06:59 06:59 Intake Total 610 1865 600 Output Total 250 Balance 360 1865 600 Weight 75 kg 76.3 kg General appearance: PRESENT: no acute distress, well-developed, well-nourished Head exam: PRESENT: atraumatic, normocephalic Eye exam: PRESENT: conjunctiva pink, EOMI, PERRLA. ABSENT: scleral icterus Ear exam: PRESENT: normal external ear exam Mouth exam: PRESENT: moist, tongue midline Neck exam: ABSENT: carotid bruit, JVD, lymphadenopathy, thyromegaly Respiratory exam: PRESENT: clear to auscultation abelardo. ABSENT: rales, rhonchi, wheezes Cardiovascular exam: PRESENT: RRR. ABSENT: diastolic murmur, rubs, systolic murmur Pulses: PRESENT: normal dorsalis pedis pul Vascular exam: PRESENT: normal capillary refill GI/Abdominal exam: PRESENT: normal bowel sounds, soft. ABSENT: distended, guarding, mass, organolmegaly, rebound, tenderness Rectal exam: PRESENT: deferred Extremities exam: PRESENT: full ROM - left hip, tenderness Musculoskeletal exam: PRESENT: ambulatory, normal inspection, tenderness Neurological exam: PRESENT: alert, awake, oriented to person, oriented to place , oriented to time, oriented to situation, CN II-XII grossly intact. ABSENT: motor sensory deficit Psychiatric exam: PRESENT: appropriate affect, normal mood. ABSENT: homicidal ideation, suicidal ideation Skin exam: PRESENT: dry, intact, warm. ABSENT: cyanosis, rash Results Laboratory Results: 10/29/16 04:23 11/03/16 05:50 11/03/16 11/03/16 05:50 08:20 Sodium 133.7 L Potassium 4.2 Chloride 105 Carbon Dioxide 21 L Anion Gap 8 BUN 17 Creatinine 0.71 Est GFR ( Amer) > 60 Est GFR (Non-Af Amer) > 60 Glucose 88 Calcium 8.2 L Urine Color YELLOW Urine Appearance SLIGHTLY-CLOUDY Urine pH 6.0 Ur Specific [place] 1.011 Urine Protein NEGATIVE Urine Glucose (UA) NEGATIVE Urine Ketones TRACE H Urine Blood NEGATIVE Urine Nitrite NEGATIVE Ur Leukocyte Esterase NEGATIVE Urine WBC (Auto) 5 Urine RBC (Auto) 2 Impressions: Chest X-Ray 10/28/16 19:07 IMPRESSION: NO ACUTE RADIOGRAPHIC FINDING IN THE CHEST. Hip X-Ray 10/28/16 19:08 IMPRESSION: Left pubic and ischial rami fractures, minimal displacement. No evidence for femoral fracture. Assessment & Plan - Diagnosis (1) Hyponatremia Is this a current diagnosis for this admission?: YesPlan: Improved to 134 today. Appetite is slowly improving. Will stop IV fluids and follow (2) Fracture of pubic ramus Qualifiers: Encounter type: initial encounter Fracture type: closed Laterality : left Qualified Code(s): S32.592A - Other specified fracture of left pubis, initial encounter for closed fracture Is this a current diagnosis for this admission?: YesPlan: Pain control , PT and short term rehab (3) Pelvic fracture Qualifiers: Encounter type: initial encounter Is this a current diagnosis for this admission?: YesPlan: Same as #1 (4) Gait disorder Is this a current diagnosis for this admission?: YesPlan: With physical therapy - Time Time Spent with patient: 25-34 minutes Critical Time spent with patient: 15-24 minutes Medications reviewed and adjusted accordingly: Yes Anticipated discharge: Acute Rehab Within: when bed available
[2016-11-03] MEDS: OXYCODONE HCL IR 5 MG TABLET PO PRN (21:41)
[2016-11-04 06:10] LABS: ANION GAP 8 (5-19); BLOOD UREA NITROGEN 12 mg/dL (7-20); CALCIUM 8.2 mg/dL (8.4-10.2); CARBON DIOXIDE 23 mmol/L (22-30); CHLORIDE 103 mmol/L (98-107); CREATININE RESULT 0.68 mg/dL (0.52-1.25); GLUCOSE 90 mg/dL (75-110); POTASSIUM 4.4 mmol/L (3.6-5.0); SODIUM 134.3 mmol/L (137-145)
[2016-11-04] MEDS: CYCLOBENZAPRINE HCL 10 MG TABLET PO PRN ×2 (06:17→14:10)
[2016-11-04] MEDS: HEPARIN SOD (PORCINE) 5,000 UNIT/ML 1 ML SYRINGE SUBCUT SCH ×2 (06:18→14:10)
[2016-11-04] MEDS: LOSARTAN POTASSIUM 50 MG TABLET PO SCH (09:27)
[2016-11-04] MEDS: DOCUSATE SODIUM 100 MG CAPSULE PO SCH (09:27)
[2016-11-04] MEDS: POLYETHYLENE GLYCOL 3350 POWDER 17 GM/1 PACKET PO SCH (09:27)
--- NOTE | 2016-11-04 11:05 | PDOC TRANSFER SUMMARY ---
General - Admit/Disc Date/PCP Admission Date/Primary Care Provider: 10/28/16 21:25 ELIA IBARRA MD Discharge Date: 11/04/16 - Discharge Diagnosis (1) Hyponatremia Is this a current diagnosis for this admission?: YesSummary: Secondary to decrease oral intake. Treated with IV hydration and resolved. Her appetite is improving (2) Fracture of pubic ramus Is this a current diagnosis for this admission?: YesSummary: Pain improving. Walking with walker and physical therapy (3) Pelvic fracture Is this a current diagnosis for this admission?: YesSummary: Pain medication, physical therapy (4) Gait disorder Is this a current diagnosis for this admission?: YesSummary: Improved. Patient at baseline is very fit and active 86 yr old. She walks daily and swims 3 x per week - Additional Information Resuscitation Status: Full Code Discharge Diet: Regular Discharge Activity: Activity As Tolerated, Balance Activity w/Rest Home Medications: Cholecalciferol (Vitamin D3) [Vitamin D3] 50,000 units PO ASDIR PRN 10/28/16 Losartan Potassium [Cozaar 25 mg Tablet] 25 mg PO DAILY 10/28/16 Meclizine HCl [Antivert 25 mg Tablet] 25 mg PO DAILYP PRN 10/28/16 Acetaminophen [Tylenol 325 mg Tablet] 650 mg PO Q6HP PRN tablet 11/04/16 Cyclobenzaprine HCl [Flexeril 10 mg Tablet] 5 mg PO Q8HP PRN tablet 11/04/16 Docusate Sodium [Colace 100 mg Capsule] 100 mg PO BID capsule 11/04/16 Oxycodone HCl [Oxy-Ir 5 mg Tablet] 2.5 mg PO Q6HP PRN #30 tablet 11/04/16 Polyethylene Glycol 3350 [Miralax Powder 17 gm/Packet] 17 gm PO DAILY powd.pack 11/04/16 History of Present Illness Admission Date/PCP: 10/28/16 21:25 ELIA IBARRA MD Patient complains of: Severe left hip pain after a fall History of Present Illness: SANTIAGO GLEZ is a 86 year old female who sustained a fall after tripping over a curb onto her left side last evening. Patient has notable pain and inability to weight-bear. She was brought to the emergency room where x-rays demonstrated pelvic fracture. She states her pain has somewhat improved since yesterday she has more motion however the pain continues to be limiting. She denies numbness or tingling. Currently not being treated for osteoporosis but was on Fosamax years ago. Current pain 07/26. At baseline, she is very active walking and swimming weekly. Lives independently. Hospital Course Hospital Course: Patient was admitted to the hospitalist service on telemetry. She was admitted for physical therapy and pain control on observation status. On her third hospital day, she had mild confusion overnight and was found to be hyponatremic. IV normal saline was initiated. She had decreased oral intake due to pain. EHR, changed patient to inpatient status on 11/01. Discharge planning was consulted for rehab placement. The patient continued to improve over the weekend. Pain is slowly improving. Hyponatremia resolved. Her oral intake is improved. She has a bed offer for short term rehab at [facility]. She will be transferred there later today. Physical Exam Vital Signs: Temp Pulse Resp BP Pulse Ox 98.5 F 87 16 147/60 H 96 11/04/16 07:28 11/04/16 07:28 11/04/16 07:28 11/04/16 07:28 11/04/16 07:28 Intake & Output 11/03/16 11/04/16 11/05/16 06:59 06:59 06:59 Intake Total 1865 936 Balance 1865 936 Weight 76.3 kg 77.2 kg General appearance: PRESENT: no acute distress, well-developed, well-nourished Head exam: PRESENT: atraumatic, normocephalic Eye exam: PRESENT: conjunctiva pink, EOMI, PERRLA. ABSENT: scleral icterus Ear exam: PRESENT: normal external ear exam Mouth exam: PRESENT: moist, tongue midline Neck exam: ABSENT: carotid bruit, JVD, lymphadenopathy, thyromegaly Respiratory exam: PRESENT: clear to auscultation abelardo. ABSENT: rales, rhonchi, wheezes Cardiovascular exam: PRESENT: RRR. ABSENT: diastolic murmur, rubs, systolic murmur Pulses: PRESENT: normal dorsalis pedis pul Vascular exam: PRESENT: normal capillary refill Rectal exam: PRESENT: deferred Extremities exam: PRESENT: full ROM, tenderness Musculoskeletal exam: PRESENT: ambulatory, tenderness - left hip Neurological exam: PRESENT: alert, awake, oriented to person, oriented to place , oriented to time, oriented to situation, CN II-XII grossly intact. ABSENT: motor sensory deficit Psychiatric exam: PRESENT: appropriate affect, normal mood. ABSENT: homicidal ideation, suicidal ideation Skin exam: PRESENT: dry, intact, warm. ABSENT: cyanosis, rash Results Laboratory Results: 10/29/16 04:23 11/04/16 05:28 11/04/16 05:28 Sodium 134.3 L Potassium 4.4 Chloride 103 Carbon Dioxide 23 Anion Gap 8 BUN 12 Creatinine 0.68 Est GFR ( Amer) > 60 Est GFR (Non-Af Amer) > 60 Glucose 90 Calcium 8.2 L Impressions: Chest X-Ray 10/28/16 19:07 IMPRESSION: NO ACUTE RADIOGRAPHIC FINDING IN THE CHEST. Hip X-Ray 10/28/16 19:08 IMPRESSION: Left pubic and ischial rami fractures, minimal displacement. No evidence for femoral fracture. Transfer Plan - Disposition Transfer Plan: [facility] for short term rehab - Time Spent with Patient Time spent with patient: Less than 30 Minutes Qualifiers PATEINT BEING DISCHARGED WITH ANY OF THE FOLLOWING DIAGNOSIS?: No
[2016-11-04 13:50] VITALS: BP 143/75
[2016-11-04] MEDS: OXYCODONE HCL IR 5 MG TABLET PO PRN (14:09)
== END 2016-11-04 14:22 | DRG 536 ==
LOC: ER 18:43 → EH 21:25 → UNDOADMOB 21:34 → EH 21:34 → 4N 22:40 → OBSVTOIN 11-01 13:55
PROVIDERS: ADMIT Internal Medicine; ATTEND Internal Medicine
DX: S32.592A Other specified fracture of left pubis, initial encounter for closed fracture (principal); S32.692A Other specified fracture of left ischium, initial encounter for closed fracture; E87.1 Hypo-osmolality and hyponatremia; R26.9 Unspecified abnormalities of gait and mobility; Z79.899 Other long term (current) drug therapy; W18.09XA Striking against other object with subsequent fall, initial encounter; Y93.9 Activity, unspecified; Y92.89 Other specified places as the place of occurrence of the external cause; Y99.9 Unspecified external cause status; E83.51 Hypocalcemia; E78.5 Hyperlipidemia, unspecified; I10 Essential (primary) hypertension; D64.9 Anemia, unspecified; Z90.49 Acquired absence of other specified parts of digestive tract; Z90.710 Acquired absence of both cervix and uterus; Z88.0 Allergy status to penicillin
CPT/HCPCS: 36415; 71010; 80048; 81001; 82040; 83735; 84484; 85025; 96374; 96376; 99285; G0378; G8978-GP; G8979-GP; J0360; J1644; J1885; J3010; J3490; J7030; J7040; S0119

== ENCOUNTER → 2016-12-19 | Outpatient (CLI) | payer MEDICARE, OTHER ==
[2016-12-19 17:26] LABS: ALANINE AMINOTRANSFERASE 26 U/L (9-52); ALBUMIN 4.1 g/dL (3.5-5.0); ALKALINE PHOSPHATASE 201 U/L (38-126); ANION GAP 14 (5-19); ASPARTATE AMINO TRANSFERASE 19 U/L (14-36); BILIRUBIN,DIRECT 0.3 mg/dL (0.0-0.4); BILIRUBIN,TOTAL 0.6 mg/dL (0.2-1.3); BLOOD UREA NITROGEN 13 mg/dL (7-20); CALCIUM 10.2 mg/dL (8.4-10.2); CARBON DIOXIDE 21 mmol/L (22-30); CHLORIDE 97 mmol/L (98-107); CREATININE RESULT 0.72 mg/dL (0.52-1.25); GLUCOSE 119 mg/dL (75-110); POTASSIUM 4.2 mmol/L (3.6-5.0); SODIUM 131.5 mmol/L (137-145); TOTAL PROTEIN 6.5 g/dL (6.3-8.2)
--- NOTE | 2016-12-19 17:41 | RADIOLOGY REPORT (SQ) ---
EXAM DESCRIPTION: T SPINE AP/LAT COMPLETED DATE/TIME: 12/19/2016 4:52 pm REASON FOR STUDY: PAIN IN THORACIC SPINE M54.6 PAIN IN THORACIC SPINE M54.5 LOW BACK PAIN COMPARISON: None. NUMBER OF VIEWS: Two views. TECHNIQUE: AP and lateral radiographic images acquired of the thoracic spine. LIMITATIONS: None. FINDINGS: MINERALIZATION: Normal. ALIGNMENT: Normal. No scoliosis. VERTEBRAE: Compression changes T10 new since 2012. DISCS: No significant loss of height or significant narrowing. No large osteophytes. HARDWARE: None in the spine. MEDIASTINUM AND SOFT TISSUES: Normal heart size and aortic contour. No soft tissue abnormality. VISUALIZED LUNG WILLETT: Clear. OTHER: No other significant finding. IMPRESSION: T10 compression changes of uncertain age. TECHNICAL DOCUMENTATION: JOB ID: [id number] [employer]- All Rights Reserved
--- NOTE | 2016-12-19 17:52 | RADIOLOGY REPORT (SQ) ---
EXAM DESCRIPTION: LUMBAR SPINE COMPLETE COMPLETED DATE/TIME: 12/19/2016 4:52 pm REASON FOR STUDY: LOW BACK PAIN M54.6 PAIN IN THORACIC SPINE M54.5 LOW BACK PAIN COMPARISON: Thoracic spine films same date NUMBER OF VIEWS: Five views including obliques. TECHNIQUE: AP, lateral, oblique, and sacral radiographic images acquired of the lumbar spine. LIMITATIONS: Nonstandard radiographic positioning. The lateral film is rotated, lateral lumbosacral junction films are rotated. FINDINGS: MINERALIZATION: Osteoporotic SEGMENTATION: Normal. No transitional anatomy. ALIGNMENT: Normal. VERTEBRAE: Maintained height. No fracture or worrisome bone lesion. DISCS: Disc space narrowing at L4-5 and L5-S1. POSTERIOR ELEMENTS: Lower lumbar facet arthropathy right greater than left at L5-S1 HARDWARE: None in the spine. PARASPINAL SOFT TISSUES: Normal. PELVIS: There is sclerosis along the left and right sacral ala from old sacral insufficiency fracture , and an incompletely healed left superior pubic ramus fracture at the bottom edge of the field of vi ew. The OTHER: No other significant finding. IMPRESSION: No gross acute fracture of the lumbar spine Sclerosis along the left and right sacral ala from old insufficiency fractures. Nonunited superior pubic ramus fracture the bottom edge of the field of view TECHNICAL DOCUMENTATION: JOB ID: [id number] [employer]- All Rights Reserved
== END ==
LOC: OD 16:00
PROVIDERS: ATTEND Physician Assistant
DX: M54.6 Pain in thoracic spine (principal); M54.5 Low back pain; Z79.899 Other long term (current) drug therapy
CPT/HCPCS: 36415; 72070; 72110; 80053

== ENCOUNTER 2017-01-19 08:42 | Emergency (ER) | payer MEDICARE, OTHER ==
[2017-01-19] MEDS ORDERED: LIDOCAINE 5% (700 MG) TRANSDERMAL ADH..PATCH TP ONE (09:16)
[2017-01-19] MEDS ORDERED: TRAMADOL HCL 50 MG TABLET PO ONE (09:16)
--- NOTE | 2017-01-19 09:17 | ER Document Report ---
HPI - HPI Patient complains to provider of: low back pain Onset: Other - 2 days Quality of pain: Achy Pain Level: 5 Context: Patient complains of low back pain off and on since a fall in October. Patient states that the pain worsened over the past 2 days. Patient took Flexeril yesterday without relief of her back pain as well as her percocet 2.5 mg tablets at home. Patient denies any urinary symptoms. Patient denies any new injury. Associated Symptoms: Other - low back pain Exacerbated by: Standing, Movement Relieved by: Denies Similar symptoms previously: Yes Recently seen / treated by doctor: No - ROS ROS below otherwise negative: Yes Systems Reviewed and Negative: Yes All other systems reviewed and negative - CONSTITUTIONAL Constitutional: DENIES: Fever, Chills - NEURO Neurology: DENIES: Weakness - GASTROINTESTINAL Gastrointestinal: DENIES: Abdominal Pain - URINARY Urinary: DENIES: Dysuria, Urgency, Frequency - REPRODUCTIVE Reproductive: DENIES: : - MUSCULOSKELETAL Musculoskeletal: REPORTS: Back Pain. DENIES: Extremity pain - DERM Skin Color: Normal Skin Problems: None Past Medical History - General Information source: Patient - Social History Smoking Status: Never Smoker Frequency of alcohol use: None Drug Abuse: None Occupation: none Lives with: Family Family History: Reviewed & Not Pertinent Patient has suicidal ideation: No Patient has homicidal ideation: No - Past Medical History Cardiac Medical History: Reports: Hx Hypercholesterolemia, Hx Hypertension Denies: Hx Coronary Artery Disease, Hx Heart Attack Pulmonary Medical History: Reports: Hx Pneumonia - 1997 AFTER SURGERY Denies: Hx Asthma, Hx Bronchitis, Hx COPD Neurological Medical History: Denies: Hx Cerebrovascular Accident, Hx Seizures Renal/ Medical History: Denies: Hx Peritoneal Dialysis GI Medical History: Denies: Hx Hepatitis, Hx Hiatal Hernia, Hx Ulcer Musculoskeltal Medical History: Denies Hx Arthritis Infectious Medical History: Denies: Hx Hepatitis Past Surgical History: Reports: Hx Breast Surgery - biopsy, Hx Cholecystectomy, Hx Gynecologic Surgery, Hx Hysterectomy, Hx Thyroid Surgery. Denies: Hx Mastectomy, Hx Open Heart Surgery, Hx Pacemaker - Immunizations Hx Diphtheria, Pertussis, Tetanus Vaccination: Yes - Mar Hx Pneumococcal Vaccination: 06/20/03 Vertical Provider Document - CONSTITUTIONAL Agree With Documented VS: Yes Exam Limitations: No Limitations General Appearance: WD/WN, No Apparent Distress Notes: PHYSICAL EXAMINATION: GENERAL: Well-appearing, well-nourished and in no acute distress. HEAD: Atraumatic, normocephalic. EYES: sclera clear, anicteric, conjunctiva are normal. ENT: nares patent, Moist mucous membranes. NECK: Normal range of motion, supple no lymphadenopathy LUNGS: respirations unlabored HEART: Regular rate and rhythm without murmurs EXTREMITIES: Normal range of motion, no pitting or edema. No cyanosis. Gait normal, pt ambulates without difficulty BACK: Patient with thoracolumbar midline tenderness, no deformities or step- offs. No CVA tenderness. NEUROLOGICAL: Cranial nerves grossly intact. Normal speech, no foot drop. No saddle anesthesia. PSYCH: Normal mood, normal affect. SKIN: Warm, Dry, normal turgor, no rashes or lesions noted. - INFECTION CONTROL TRAVEL OUTSIDE OF THE [place] IN LAST 30 DAYS: No - RESPIRATORY O2 Sat by Pulse Oximetry: 94 Course - Re-evaluation Re-evalutation: 01/19/17 10:38 Patient and her daughter advised of radiology report as well as urinalysis results. Patient and family states that patient did well with Macrobid in the past and that would like her to be on this antibiotic. Patient states that she used to have problems with UTIs but has not had one in the past 2 years. - Vital Signs Vital signs: Temp Pulse Resp BP Pulse Ox 97.6 F 70 18 160/91 H 94 01/19/17 08:45 01/19/17 08:45 01/19/17 08:45 01/19/17 08:45 01/19/17 08:45 - Laboratory Laboratory results interpreted by me: 01/19/17 10:37 Labs- Entire Visit 01/19/17 10:00 Urine Color YELLOW Urine Appearance SLIGHTLY-CLOUDY Urine pH 6.0 Ur Specific [place] 1.004 Urine Protein NEGATIVE Urine Glucose (UA) NEGATIVE Urine Ketones TRACE H Urine Blood NEGATIVE Urine Nitrite NEGATIVE Urine Bilirubin NEGATIVE Urine Urobilinogen NEGATIVE Ur Leukocyte Esterase MODERATE H Urine WBC (Auto) 20 Urine RBC (Auto) 1 Urine Bacteria (Auto) TRACE Squamous Epi Cells Auto 4 Urine Mucus (Auto) RARE Urine Ascorbic Acid NEGATIVE - Diagnostic Test Radiology reviewed: Reports reviewed Discharge - Discharge Clinical Impression: Hx of essential hypertension, Compression fracture Low back pain Qualifiers: Chronicity: unspecified Back pain laterality: midline Sciatica presence: without sciatica Qualified Code(s): M54.5 - Low back pain UTI (urinary tract infection) Qualifiers: Urinary tract infection type: site unspecified Hematuria presence: without hematuria Qualified Code(s): N39.0 - Urinary tract infection, site not specified Condition: Stable Disposition: HOME, SELF-CARE Instructions: Compression Fracture of the Spine ([facility]), Low Back Pain ([facility]), Nitrofurantoin ([facility]), Ultram ([facility]), Urinary Tract Infection ([facility]) Additional Instructions: Return immediately for any new or worsening symptoms Followup with your primary care provider, call tomorrow to make a followup appointment Do not take the Ultram if you are resume taking your Prozac Prescriptions: Lidocaine [Lidoderm 5% (700 mg) Transdermal Patch] 1 patch TP DAILY #7 adh..patch Nitrofurantoin/Nitrofuran Mac [Macrobid 100 mg Capsule] 1 tab PO BID #20 capsule Tramadol HCl [Ultram 50 mg Tablet] 50 mg PO ASDIR PRN #20 tablet PRN Reason: Forms: Elevated Blood Pressure Referrals: ELIA IBARRA MD [Primary Care Provider] - Follow up in 3-5 days
--- NOTE | 2017-01-19 10:09 | RADIOLOGY REPORT (SQ) ---
EXAM DESCRIPTION: T SPINE AP/LAT COMPLETED DATE/TIME: 01/19/2017 9:52 am REASON FOR STUDY: Thoracolumbar back pain COMPARISON: 12/19/2016. NUMBER OF VIEWS: Two views of the thoracic spine. LIMITATIONS: None. FINDINGS: Osteopenic. Chronic T10 compression fracture, as before. No definite new fractures. L1 findings are separately described in lumbar spine dictation. OTHER: No other significant finding. IMPRESSION: Chronic T10 compression fracture. Limiting osteopenia but no definite new thoracic frac ture appreciated. See separately dictated lumbar spine radiographs. TECHNICAL DOCUMENTATION: JOB ID: [id number]
--- NOTE | 2017-01-19 10:12 | RADIOLOGY REPORT (SQ) ---
EXAM DESCRIPTION: L SPINE WHOLE COMPLETED DATE/TIME: 01/19/2017 9:52 am REASON FOR STUDY: Thoracolumbar back pain COMPARISON: 12/19/2016. NUMBER OF VIEWS: Five views lumbosacral spine including obliques. LIMITATIONS: None. FINDINGS: Osteopenic. Mild L1 compression fracture, not seen on last months radiographs. Normal al ignment. No gross pars defect. Multilevel spondylosis with disc space narrowing particularly at L3- 4 and L4-5. OTHER: No other significant finding. IMPRESSION: New L1 compression fracture. This appears to have developed over the past month. TECHNICAL DOCUMENTATION: JOB ID: [id number]
[2017-01-19 10:20] LABS: APPEARANCE,URINE SLIGHTLY-CLOUDY; BILIRUBIN,URINE NEGATIVE (NEGATIVE); GLUCOSE, URINE NEGATIVE (NEGATIVE); KETONES,URINE TRACE mg/dL (NEGATIVE); LEUKOCYTE ESTERASE,URINE MODERATE (NEGATIVE); NITRITE,URINE NEGATIVE (NEGATIVE); PROTEIN,URINE NEGATIVE (NEGATIVE); URINE SPECIFIC GRAVITY 1.004; UROBILINOGEN,URINE NEGATIVE mg/dL (<2.0)
[2017-01-19] MEDS ORDERED: NITROFURANTOIN MONOHYD/M-CRYST 100 MG CAPSULE PO ONE (10:35)
[2017-01-19 11:02] VITALS: BP 149/86
== END 2017-01-19 11:10 | disposition home or self-care (01) ==
LOC: ER 08:42
DX: M54.5 Low back pain (principal); S32.019A Unspecified fracture of first lumbar vertebra, initial encounter for closed fracture; W19.XXXA Unspecified fall, initial encounter; I10 Essential (primary) hypertension; N39.0 Urinary tract infection, site not specified
CPT/HCPCS: 99284; 87086; 81001; 72110; 72070; A9270 ×2; J8499

== ENCOUNTER 2017-01-26 08:16 | Emergency (ER) | payer MEDICARE, OTHER ==
--- NOTE | 2017-01-26 09:01 | ER Document Report ---
ED General - General Chief Complaint: Back Pain Stated Complaint: BACK PAIN NO INJURY Time Seen by Provider: 01/26/17 08:28 TRAVEL OUTSIDE OF THE [place] IN LAST 30 DAYS: No - HPI Notes: Patient is an 86-year-old female who presents to the ED complaining of constipation and ongoing/increased low back pain. Patient was evaluated last week and was diagnosed with a "newer" compression fracture to L1 within the last month or so. Patient has since been evaluated by her PCM and increased her oxycodone to 5 mg instead of the 2.5 mg dose. Her daughter has been placing Lidoderm patches on her lower back regularly with some relief. Daughter states that her mother is not able to ambulate as easily as she normally can, and is needing more assistance throughout the day and with movement. Patient states that she does not have any pain while laying supine. The pain does not radiate from her back. Patient states that she has also been constipated for 10 or more days without having any bowel movements. Patient states that she is still passing gas. She still eating and drinking without any difficulties, but does have a decreased appetite. Patient is currently being treated for a UTI that was diagnosed last week with Macrobid. Patient has not had any acute changes in her urinary habits. Patient has no other concerns or complaints at this time. Patient states that otherwise she is feeling well. Denies any headache, fever, neck pain, URI, sore throat, chest pain, palpitations, syncope, cough, shortness of breath, wheeze, dyspnea, abdominal pain, nausea/vomiting/diarrhea, urinary retention, dysuria, hematuria , loss of control of bowel or bladder, numbness/tingling, saddle anesthesia, muscle paralysis/weakness, or rash. - Related Data Allergies/Adverse Reactions: ibuprofen Allergy (Severe, Verified 01/19/17 09:43) Penicillins Allergy (Verified 10/28/16 19:07) gabapentin Adverse Reaction (Severe, Verified 01/19/17 09:43) Past Medical History - Social History Smoking Status: Never Smoker Family History: Reviewed & Not Pertinent - Past Medical History Cardiac Medical History: Reports: Hx Hypercholesterolemia, Hx Hypertension Denies: Hx Coronary Artery Disease, Hx Heart Attack Pulmonary Medical History: Reports: Hx Pneumonia - 1998 AFTER SURGERY Denies: Hx Asthma, Hx Bronchitis, Hx COPD Neurological Medical History: Denies: Hx Cerebrovascular Accident, Hx Seizures Renal/ Medical History: Denies: Hx Peritoneal Dialysis GI Medical History: Denies: Hx Hepatitis, Hx Hiatal Hernia, Hx Ulcer Musculoskeltal Medical History: Denies Hx Arthritis Infectious Medical History: Denies: Hx Hepatitis Past Surgical History: Reports: Hx Breast Surgery - biopsy, Hx Cholecystectomy, Hx Gynecologic Surgery, Hx Hysterectomy, Hx Thyroid Surgery. Denies: Hx Mastectomy, Hx Open Heart Surgery, Hx Pacemaker - Immunizations Hx Diphtheria, Pertussis, Tetanus Vaccination: Yes - Mar Hx Pneumococcal Vaccination: 06/20/03 Review of Systems - Review of Systems Notes: REVIEW OF SYSTEMS: CONSTITUTIONAL : Denies fever, chills, or sweats. Denies recent illness. EENT: Denies eye, ear, throat, or mouth pain or symptoms. Denies nasal or sinus congestion or discharge. Denies throat, tongue, or mouth swelling or difficulty swallowing. CARDIOVASCULAR: Denies chest pain. Denies palpitations or racing or irregular heart beat. Denies ankle edema. RESPIRATORY: Denies cough, cold, or chest congestion. Denies shortness of breath, difficulty breathing, or wheezing. GASTROINTESTINAL: see hpi. Denies abdominal pain or distention. Denies nausea , vomiting, or diarrhea. Denies blood in vomitus, stools, or per rectum. Denies black, tarry stools. GENITOURINARY: Denies difficulty urinating, painful urination, burning, frequency, blood in urine, or discharge. MUSCULOSKELETAL: see hpi SKIN: Denies rash, lesions or sores. NEUROLOGICAL: Denies confusion or altered mental status. Denies passing out or loss of consciousness. Denies dizziness or lightheadedness. Denies headache. Denies weakness or paralysis or loss of use of either side. Denies problems with gait or speech. Denies sensory loss, numbness, or tingling. Denies seizures. PSYCHIATRIC: Denies anxiety or stress. Denies depression, suicidal ideation, or homicidal ideation. ALL OTHER SYSTEMS REVIEWED AND NEGATIVE. Dictation was performed using [employer] voice recognition software Physical Exam - Vital signs Vitals: Temp Pulse Resp BP Pulse Ox 97.6 F 89 18 135/104 H 94 01/26/17 08:40 01/26/17 08:40 01/26/17 08:40 01/26/17 08:40 01/26/17 08:40 Notes: PHYSICAL EXAMINATION: GENERAL: Well-appearing, well-nourished and in no acute distress. EYES: Pupils equal round and reactive to light, extraocular movements intact, sclera anicteric, conjunctiva are normal. NECK: Normal range of motion, supple without lymphadenopathy LUNGS: Breath sounds clear to auscultation bilaterally and equal. No wheezes rales or rhonchi. HEART: Regular rate and rhythm without murmurs, rubs, gallops. ABDOMEN: Soft, nontender, nondistended abdomen. No guarding, no rebound. No masses appreciated. Normal bowel sounds present. No CVA tenderness bilaterally. MANISHA performed, no obvious impaction noted. Hemoccult obtained. Musculoskeletal: LE's b/l: FROM to passive/active. Strength 5+/5. SLR negative. Back: FROM to passive/active. Strength 5+/5. Non-tender, no vertebral point tenderness or paraspinal. No SI jt tenderness. Min. spasming noted to L- paraspinal mm. Extremities: No cyanosis, clubbing, or edema b/l. Peripheral pulses 2+. Capillary refill less than 3 seconds. NEUROLOGICAL: Cranial nerves grossly intact. Normal speech, ataxic gait. Normal sensory, motor exams PSYCH: Normal mood, normal affect. SKIN: Warm, Dry, normal turgor, no rashes or lesions noted. Course - Re-evaluation Re-evalutation: 01/26/17 13:10 Patient is an afebrile, well-hydrated, 86-year-old female who presents to the ED with continued compression fractures L1 with some narrowing compared to last week's visit along with reported constipation without any obstruction. Vitals are stable. PE otherwise unremarkable for any focal neurological deficits. Urinalysis was unremarkable for acute pathology. L-spine x-ray results as above. Acute abdomen series did not show any acute pathology. A fleets enema was provided today. Reviewed with Dr. Alonzo, colon appears clean and we can d/c in stable condition. Patient is already taking oxycodone at home for her pain. I will send her home with a prescription for Voltaren gel (issue with PO NSAIDs, GI issue). Conservative measures otherwise as reviewed for symptoms. Call orthopedics tomorrow to schedule an appointment for further evaluation. Recheck with your PCM this week. Return to the ED with any worsening/ concerning symptoms otherwise as reviewed in discharge. Patient/daughter are in agreement. Low suspicion for any meningitis, fracture, expanding/ruptured AAA, cauda equina syndrome, bowel obstruction, epidural mass lesion/abscess, herniated disc causing severe spinal stenosis, or other systemic infection at this time. Patient is aware that her condition can change from initial presentation and that she needs monitor symptoms closely for any acute changes. - Vital Signs Vital signs: Temp Pulse Resp BP Pulse Ox 97.6 F 89 18 135/104 H 94 01/26/17 08:40 01/26/17 08:40 01/26/17 08:40 01/26/17 08:40 01/26/17 08:40 - Laboratory Laboratory results interpreted by me: 01/26/17 08:35 Urine Ketones 20 H Urine Urobilinogen 2.0 H Discharge - Discharge Clinical Impression: Compression fracture Condition: Stable Disposition: HOME, SELF-CARE Instructions: Ice Packs ([facility]), Low Back Pain ([facility]), Warm Packs ([facility]) Additional Instructions: Rest, Ice Tylenol/ibuprofen as needed Maintain adequate fluid/food intake Light stretches daily Strength exercises as able Moist heat and massage may help F/u with your PCP in 2-3 days for a recheck Call Orthopedics to schedule an appointment for further evaluation. Consider consult with Physical therapy as well. Return to the ED with any worsening symptoms and/or development of fever, headache, chest pain, palpitations, syncope, shortness of breath, trouble breathing, abdominal pain, n/v/d, blood in stool/urine, loss of control of bowel /bladder, urinary retention, muscle weakness/paralysis, saddle anesthesia, numbness/tingling, or other worsening symptoms that are concerning to you. Prescriptions: Diclofenac Sodium [Voltaren] 4 gm TP QID PRN #100 gel..gm. PRN Reason: Forms: Elevated Blood Pressure Referrals: ELIA IBARRA MD [Primary Care Provider] - Follow up in 3-5 days
[2017-01-26 09:42] LABS: AMORPHOUS SEDIMENT,URINE TRACE /HPF; APPEARANCE,URINE CLOUDY; BILIRUBIN,URINE NEGATIVE (NEGATIVE); GLUCOSE, URINE NEGATIVE (NEGATIVE); KETONES,URINE 20 mg/dL (NEGATIVE); LEUKOCYTE ESTERASE,URINE NEGATIVE (NEGATIVE); NITRITE,URINE NEGATIVE (NEGATIVE); PROTEIN,URINE NEGATIVE (NEGATIVE); URINE SPECIFIC GRAVITY 1.014
--- NOTE | 2017-01-26 11:04 | RADIOLOGY REPORT (SQ) ---
EXAM DESCRIPTION: L SPINE WHOLE COMPLETED DATE/TIME: 01/26/2017 10:36 am REASON FOR STUDY: Low back pain, h/o newer compression fx, inc pain COMPARISON: 01/19/2017. NUMBER OF VIEWS: Five views including obliques. TECHNIQUE: AP, lateral, oblique, and sacral radiographic images acquired of the lumbar spine. LIMITATIONS: None. FINDINGS: MINERALIZATION: Osteopenic. SEGMENTATION: Normal. No transitional anatomy. ALIGNMENT: Normal. VERTEBRAE: L1 compression fracture, slightly progressive compared to the study from 1 week ago. No n ew fractures. DISCS: Disc disease at L3-4, L4-5 particularly. POSTERIOR ELEMENTS: Facet arthropathy. No pars defect evident. HARDWARE: None in the spine. PARASPINAL SOFT TISSUES: Dense aortic calcification without gross aneurysm suggested. PELVIS: Intact as visualized. No fractures or worrisome bone lesions. SI joints intact. OTHER: No other significant finding. IMPRESSION: 1. Known L1 compression fracture. Slight further height loss compared to 01/19/2017. Ost eopenia. No new fractures. Spondylosis. TECHNICAL DOCUMENTATION: JOB ID: [id number] [employer]- All Rights Reserved
--- NOTE | 2017-01-26 11:06 | RADIOLOGY REPORT (SQ) ---
EXAM DESCRIPTION: ACUTE ABDOMEN SERIES COMPLETED DATE/TIME: 01/26/2017 10:36 am REASON FOR STUDY: Constipation COMPARISON: Chest films from 10/28/2016. NUMBER OF VIEWS: Three views. TECHNIQUE: Frontal chest, supine abdomen and upright/decubitus abdomen radiographic images acquired. LIMITATIONS: None. FINDINGS: CHEST: Changes of COPD. No acute or suspicious findings. FREE AIR: None. No abnormal gas collections. BOWEL GAS PATTERN: Nonobstructive pattern. No dilated loops or air fluid levels. CALCIFICATIONS: No suspicious calcifications. HARDWARE: None in the abdomen. SOFT TISSUES: No gross mass or suggestion of organomegaly. BONES: Osteopenic. L1 fracture, see separately dictated lumbar spine radiographs. OTHER: No other significant finding. IMPRESSION: NO RADIOGRAPHIC EVIDENCE FOR ACUTE ABDOMINAL DISEASE. TECHNICAL DOCUMENTATION: JOB ID: [id number] [employer]- All Rights Reserved
[2017-01-26] MEDS ORDERED: MINERAL OIL ENEMA 133 ML PR ONE (11:54)
[2017-01-26 13:51] VITALS: BP 150/79
== END 2017-01-26 14:12 | disposition home or self-care (01) ==
LOC: ER 08:16
DX: M48.56XA Collapsed vertebra, not elsewhere classified, lumbar region, initial encounter for fracture (principal); K59.00 Constipation, unspecified; I10 Essential (primary) hypertension; E78.00 Pure hypercholesterolemia, unspecified; Z88.6 Allergy status to analgesic agent; Z88.0 Allergy status to penicillin; Z90.49 Acquired absence of other specified parts of digestive tract; Z90.710 Acquired absence of both cervix and uterus
CPT/HCPCS: 99284; 87086; 82272; 81001; 74022; 72110; J3490

== ENCOUNTER 2017-02-28 20:24 | Emergency (ER) | payer MEDICARE, OTHER ==
[2017-02-28 21:10] VITALS: BP 147/85
--- NOTE | 2017-02-28 21:13 | RADIOLOGY REPORT (SQ) ---
EXAM DESCRIPTION: SHOULDER RIGHT 2 OR MORE VIEWS COMPLETED DATE/TIME: 02/28/2017 9:01 pm REASON FOR STUDY: fall COMPARISON: None. NUMBER OF VIEWS: Two views. TECHNIQUE: AP AND Y-VIEW images acquired of the right shoulder. LIMITATIONS: None. FINDINGS: MINERALIZATION: Osteopenia. BONES: Humeral head/ neck fracture with impaction. JOINTS: No dislocation. VISUALIZED LUNGS AND RIBS: No pneumothorax. No rib fracture. SOFT TISSUES: Soft tissue swelling. OTHER: No other significant finding. IMPRESSION: RIGHT HUMERAL HEAD/NECK FRACTURE WITH IMPACTION. TECHNICAL DOCUMENTATION: JOB ID: [id number] [employer]- All Rights Reserved
[2017-02-28] MEDS ORDERED: HYDROCODONE/ACETAMINOPHEN 5-325 MG 6 TAB/DSPK PO PRN (21:19)
--- NOTE | 2017-02-28 21:22 | ER Document Report ---
ED Extremity Problem, Upper - General Chief Complaint: Arm Injury Stated Complaint: FALL, RIGHT ARM PAIN Time Seen by Provider: 02/28/17 21:09 Mode of Arrival: Stretcher Information source: Patient TRAVEL OUTSIDE OF THE [place] IN LAST 30 DAYS: No - HPI Patient complains to provider of: Injury, Pain, Right, Shoulder Onset: Just prior to arrival Recent injury: Yes Where: Home Quality of pain: Achy Severity of pain: Moderate Pain Level: 4 Context: Fall Associated symptoms: None Exacerbated by: Movement Relieved by: Nothing Similar symptoms previously: No Recently seen / treated by doctor: Yes Notes: Patient is a 89-year-old female presenting to the emergency room today after trip and fall causing injury to her right shoulder, she denies any head injury, no loss of consciousness, she denies pain or injury elsewhere, no numbness or tingling to the distal extremity, she was recently released from short-term rehab after having a pelvic fracture - Related Data Allergies/Adverse Reactions: ibuprofen Allergy (Severe, Verified 01/19/17 09:43) Penicillins Allergy (Verified 10/28/16 19:07) gabapentin Adverse Reaction (Severe, Verified 01/19/17 09:43) Past Medical History - General Information source: Patient - Social History Smoking Status: Unknown if Ever Smoked Family History: Reviewed & Not Pertinent - Past Medical History Cardiac Medical History: Reports: Hx Hypercholesterolemia, Hx Hypertension Denies: Hx Coronary Artery Disease, Hx Heart Attack Pulmonary Medical History: Reports: Hx Pneumonia - 1998 AFTER SURGERY Denies: Hx Asthma, Hx Bronchitis, Hx COPD Neurological Medical History: Denies: Hx Cerebrovascular Accident, Hx Seizures Renal/ Medical History: Denies: Hx Peritoneal Dialysis GI Medical History: Denies: Hx Hepatitis, Hx Hiatal Hernia, Hx Ulcer Musculoskeltal Medical History: Denies Hx Arthritis Infectious Medical History: Denies: Hx Hepatitis Past Surgical History: Reports: Hx Breast Surgery - biopsy, Hx Cholecystectomy, Hx Gynecologic Surgery, Hx Hysterectomy, Hx Thyroid Surgery. Denies: Hx Mastectomy, Hx Open Heart Surgery, Hx Pacemaker - Immunizations Hx Diphtheria, Pertussis, Tetanus Vaccination: Yes - Mar Hx Pneumococcal Vaccination: 06/20/03 Review of Systems - Review of Systems Constitutional: No symptoms reported EENT: No symptoms reported Cardiovascular: No symptoms reported Respiratory: No symptoms reported Gastrointestinal: No symptoms reported Genitourinary: No symptoms reported Female Genitourinary: No symptoms reported Musculoskeletal: See HPI Skin: No symptoms reported Hematologic/Lymphatic: No symptoms reported Neurological/Psychological: No symptoms reported -: Yes All other systems reviewed and negative Physical Exam - Vital signs Vitals: Temp Pulse Resp BP Pulse Ox 98.0 F 98 17 147/85 H 95 02/28/17 20:35 02/28/17 20:35 02/28/17 20:35 02/28/17 20:35 02/28/17 20:35 Interpretation: Normal - General General appearance: Appears well, Alert - HEENT Head: Normocephalic, Atraumatic Eyes: Normal Pupils: PERRL - Respiratory Respiratory status: No respiratory distress Chest status: Nontender Breath sounds: Normal Chest palpation: Normal - Cardiovascular Rhythm: Regular Heart sounds: Normal auscultation Murmur: No - Abdominal Inspection: Normal Distension: No distension Bowel sounds: Normal Tenderness: Nontender Organomegaly: No organomegaly - Back Back: Normal, Nontender - Extremities General upper extremity: Normal inspection, Nontender, Normal color, Normal ROM , Normal temperature General lower extremity: Other - - Extremities General upper extremity: Normal temperature General lower extremity: Normal inspection, Nontender, Normal color , Normal ROM, Normal temperature, Normal weight bearing. No: Phan's sign Shoulder: Tender - Tenderness to palpate over the proximal humeral head, slight deformity, pain with range of motion testing, distal sensation and motor is intact with 2+ radial pulses and brisk capillary refill. No: Phan's sign - Neurological Neuro grossly intact: Yes Cognition: Normal Orientation: AAOx4 [place] Coma Scale Eye Opening: Spontaneous Deanna Coma Scale Verbal: Oriented [place] Coma Scale Motor: Obeys Commands [place] Coma Scale Total: 15 Speech: Normal Motor strength normal: LUE, RUE, LLE, RLE Sensory: Normal - Psychological Associated symptoms: Normal affect, Normal mood - Skin Skin Temperature: Warm Skin Moisture: Dry Skin Color: Normal Course - Re-evaluation Re-evalutation: 02/28/17 22:13 Imaging findings consistent with humeral head fracture, patient was placed in a shoulder immobilizer and provided with pain medication as well as information for follow-up with orthopedics, patient has a home visiting nurse who comes out to the house for 9 hours a day and ensures that her needs are met throughout the day, she is accompanied by a neighbor who is a very close friend and only lives 5 minutes away who agrees to assist patient if needed as well I discussed the possibility of surgery with patient but she states that she would prefer not to have a surgical intervention at this point in time - Vital Signs Vital signs: Temp Pulse Resp BP Pulse Ox 98.0 F 98 17 147/85 H 95 02/28/17 20:35 02/28/17 20:35 02/28/17 20:35 02/28/17 20:35 02/28/17 20:35 - Diagnostic Test Radiology reviewed: Image reviewed, Reports reviewed Procedures - Immobilization Right Shoulder Time completed: 21:21 Pre-Proc Neuro Vasc Exam: Normal Immobilizer type: Shoulder immobilizer Performed by: PCT Post-Proc Neuro Vasc Exam: Normal Alignment checked and good: Yes Discharge - Discharge Clinical Impression: Humeral head fracture Qualifiers: Encounter type: initial encounter Fracture type: closed Laterality: right Qualified Code(s): S42.291A - Other displaced fracture of upper end of right humerus, initial encounter for closed fracture Condition: Stable Disposition: HOME, SELF-CARE Instructions: Oral Narcotic Medication ([facility]), Fracture Proximal Humerus Additional Instructions: Follow up with your primary care provider and an orthopedic surgeon in one to 2 days. Return to the emergency room immediately if symptoms worsen or any additional concerns. Ice and elevate the affected extremity. Prescriptions: Hydrocodone/Acetaminophen [Hydrocodon-Acetaminophen 5-325] 0.5 each PO Q6 #20 tablet Referrals: SAIMA WHITE MD [ACTIVE STAFF] - Follow up as needed
== END 2017-02-28 23:00 | disposition home or self-care (01) ==
LOC: ER 20:24
DX: S49.91XA Unspecified injury of right shoulder and upper arm, initial encounter (principal); W01.10XA Fall on same level from slipping, tripping and stumbling with subsequent striking against unspecified object, initial encounter; E78.00 Pure hypercholesterolemia, unspecified; I10 Essential (primary) hypertension; Z88.6 Allergy status to analgesic agent; Z88.0 Allergy status to penicillin; Z90.49 Acquired absence of other specified parts of digestive tract; Z90.710 Acquired absence of both cervix and uterus
CPT/HCPCS: 99284; 73030; L3650; A9270

== ENCOUNTER → 2017-07-26 | Outpatient (CLI) | payer MEDICARE, OTHER ==
--- NOTE | 2017-07-26 12:42 | RADIOLOGY REPORT (SQ) ---
EXAM DESCRIPTION: LUMBAR SPINE COMPLETE; T SPINE AP/LAT COMPLETED DATE/TIME: 07/26/2017 12:24 pm REASON FOR STUDY: S32.000G, M54.6 COMPARISON: See below. FINDINGS: Two views thoracic spine: 2017 comparison. Kyphotic. Chronic T10 and L1 compression fra ctures. T8 fracture, new since prior. Hiatal hernia suspected. Five view lumbosacral spine including obliques: 2017 comparison. Osteopenic. Chronic L1 compressio n fracture. No other lumbar fracture. Multilevel disc and facet disease, degenerative. No gross pe lvic fracture. TECHNICAL DOCUMENTATION: JOB ID: [id number] Reading location - IP/workstation name: [email or web address]
--- NOTE | 2017-07-26 12:42 | RADIOLOGY REPORT (SQ) ---
EXAM DESCRIPTION: LUMBAR SPINE COMPLETE; T SPINE AP/LAT COMPLETED DATE/TIME: 07/26/2017 12:24 pm REASON FOR STUDY: S32.000G, M54.6 COMPARISON: See below. FINDINGS: Two views thoracic spine: 2017 comparison. Kyphotic. Chronic T10 and L1 compression fra ctures. T8 fracture, new since prior. Hiatal hernia suspected. Five view lumbosacral spine including obliques: 2017 comparison. Osteopenic. Chronic L1 compressio n fracture. No other lumbar fracture. Multilevel disc and facet disease, degenerative. No gross pe lvic fracture. TECHNICAL DOCUMENTATION: JOB ID: [id number] Reading location - IP/workstation name: [email or web address]
== END ==
LOC: OD 11:58
PROVIDERS: ATTEND Physician Assistant
DX: S32.000G Wedge compression fracture of unspecified lumbar vertebra, subsequent encounter for fracture with delayed healing (principal); M54.6 Pain in thoracic spine
CPT/HCPCS: 72070; 72110

== ENCOUNTER 2018-05-03 19:04 | Inpatient (IN) | payer MEDICARE, OTHER ==
[2018-05-03] MEDS ORDERED: MORPHINE SULFATE 10 MG/ML INJ IV ONE ×2 (19:15→20:45)
[2018-05-03] MEDS ORDERED: ONDANSETRON HCL INJ/PF 4 MG/2 ML SDV IV ONE (19:15)
--- NOTE | 2018-05-03 19:32 | ER Document Report ---
ED Fall - General Stated Complaint: FALL, HIP PAIN Time Seen by Provider: 05/03/18 19:20 Notes: Patient is an 87-year-old female that comes to emergency department from home by EMS for chief complaint of fall. She states she pivoted, lost her balance, and fell on her left hip. She denies pain over her ribs, arm, shoulder, she denies hitting her head. She denies back pain. She denies numbness or incontinence. She states the pain in her left hip is severe and she could not get up off the floor. Past medical history of hypertension and osteopenia, cholecystectomy, hysterectomy. She is not on a blood thinner. TRAVEL OUTSIDE OF THE [place] IN LAST 30 DAYS: No - Related data Allergies/Adverse Reactions: ibuprofen Allergy (Severe, Verified 05/03/18 19:31) hydrocodone Allergy (Verified 05/03/18 19:31) Penicillins Allergy (Verified 05/03/18 19:31) gabapentin Adverse Reaction (Severe, Verified 05/03/18 19:31) Past Medical History - General Information source: Patient - Social History Smoking Status: Never Smoker Frequency of alcohol use: None Drug Abuse: None Lives with: Alone Family History: Hypertension - Past Medical History Cardiac Medical History: Reports: Hx Atrial Fibrillation, Hx Hypercholesterolemia, Hx Hypertension Denies: Hx Coronary Artery Disease, Hx Heart Attack Pulmonary Medical History: Reports: Hx Pneumonia - 1998 AFTER SURGERY Denies: Hx Asthma, Hx Bronchitis, Hx COPD Neurological Medical History: Denies: Hx Cerebrovascular Accident, Hx Seizures Renal/ Medical History: Denies: Hx Peritoneal Dialysis GI Medical History: Reports: Hx Hiatal Hernia. Denies: Hx Hepatitis, Hx Ulcer Musculoskeletal Medical History: Reports Hx Arthritis, Reports Hx Musculoskeletal Trauma Traumatic Medical History: Reports: Hx Fractures Infectious Medical History: Denies: Hx Hepatitis Past Surgical History: Reports: Hx Breast Surgery - biopsy, Hx Cholecystectomy, Hx Gynecologic Surgery, Hx Hysterectomy, Hx Thyroid Surgery, Other - Breast biopsy. Denies: Hx Mastectomy, Hx Open Heart Surgery, Hx Pacemaker - Immunizations Hx Diphtheria, Pertussis, Tetanus Vaccination: Yes - Mar Hx Pneumococcal Vaccination: 06/20/03 Review of Systems - Review of Systems Constitutional: No symptoms reported EENT: No symptoms reported Cardiovascular: No symptoms reported Respiratory: No symptoms reported Gastrointestinal: No symptoms reported Genitourinary: No symptoms reported Female Genitourinary: No symptoms reported Musculoskeletal: See HPI Skin: No symptoms reported Hematologic/Lymphatic: No symptoms reported Neurological/Psychological: No symptoms reported Physical Exam - Vital signs Vitals: Pulse 101 H 05/03/18 19:04 - Notes Notes: GENERAL: Anxious, appears to be in pain HEAD: Normocephalic, atraumatic. EYES: Pupils equal, round, and reactive to light. Extraocular movements intact. ENT: Oral mucosa moist, tongue midline. Oropharynx unremarkable. Airway patent. Nares patent, no nasal septal hematoma, TM's intact. NECK: Full range of motion. Supple. Trachea midline. LUNGS: Clear to auscultation bilaterally, no wheezes, rales, or rhonchi. No respiratory distress. No tenderness over the chest. HEART: Regular rate and rhythm. No murmur ABDOMEN: Soft, non-tender. Non-distended. Bowel sounds present in all 4 quadrants. No signs of trauma. GENITOURINARY: Deferred EXTREMITIES: Severe tenderness over the proximal femur and left hip area with some shortening. Normal distal pulse and sensation. Normal right lower extremity exam. Pelvis seems stable. Normal upper extremities. BACK: no cervical, thoracic, lumbar midline tenderness. No saddle anesthesia, normal distal neurovascular exam. No signs of trauma. NEUROLOGICAL: Alert and oriented x3. Normal speech. [cranial nerves II through XII grossly intact]. PSYCH: Slightly anxious SKIN: Warm, dry, normal turgor. No rashes or lesions noted. Course - Re-evaluation Re-evalutation: Patient presenting with a mechanical fall after losing her balance when pivoting. She did not hit her head. There are no signs of trauma other than the marked tenderness at the left hip. Back exam, abdominal exam, chest exam unremarkable. X-ray confirms left hip fracture with impacted fracture of the femoral neck. Discussed with patient and family, patient will require hospitalization for repair. Preop workup performed without any overt abnormality, EKG shows borderline QTC prolongation, patient has a mild cough that she has had for a few days but chest x-ray is clear. 05/03/18 21:15 Called and spoke with Dr. Stephens, orthopedic surgeon senior electronics technician, he states he will consult on the patient in the morning. Because of patient's advanced age patient will be discussed with hospitalist for admission. Discussed with Dr. Martin, patient accepted to the hospitalist service. Placed on telemetry. - Vital Signs Vital signs: Temp Pulse Resp BP Pulse Ox 97.3 F 101 H 14 155/69 H 92 05/03/18 19:29 05/03/18 19:04 05/03/18 22:01 05/03/18 22:00 05/03/18 22:01 - Laboratory Result Diagrams: 05/03/18 20:29 05/03/18 21:20 Laboratory results interpreted by me: 05/03/18 05/03/18 20:29 21:20 RDW 14.3 H Seg Neutrophils % 79.4 H Lymphocytes % 11.4 L Glucose 116 H Total Protein 5.7 L Discharge - Discharge Clinical Impression: Fall Qualifiers: Encounter type: initial encounter Qualified Code(s): W19.XXXA - Unspecified fall, initial encounter Closed left hip fracture Qualifiers: Encounter type: initial encounter Qualified Code(s): S72.002A - Fracture of unspecified part of neck of left femur, initial encounter for closed fracture Condition: Stable Disposition: ADMITTED INPATIENT Admitting Provider: Hospitalist Unit Admitted: Telemetry
--- NOTE | 2018-05-03 20:25 | RADIOLOGY REPORT (SQ) ---
EXAM DESCRIPTION: HIP LEFT AP/LATERAL COMPLETED DATE/TIME: 05/03/2018 7:48 pm REASON FOR STUDY: fall, pain COMPARISON: None. NUMBER OF VIEWS: Two views. TECHNIQUE: AP pelvis and additional cross-table view of the left hip. LIMITATIONS: None. FINDINGS: There is osteopenia. There is an acute, impacted, displaced fracture of the left femoral neck with foreshortening of the leg. The right hip joint is maintained. The pelvic ring appears int act. Degenerative changes are noted at the visualized lower lumbar spine and at the sacroiliac joint s. The soft tissues are unremarkable. IMPRESSION: Osteopenia. Acute impacted fracture of the left femoral neck. TECHNICAL DOCUMENTATION: JOB ID: [id number] [employer]- All Rights Reserved Reading location - IP/workstation name: [email or web address]
[2018-05-03 20:38] LABS: ABSOLUTE EOSINOPHILS # (AUTO) 0.1 10^3/uL (0.0-0.6); ABSOLUTE LYMPHOCYTES (AUTO) 0.9 10^3/uL (0.5-4.7); ABSOLUTE MONOCYTES (AUTO) 0.6 10^3/uL (0.1-1.4); ABSOLUTE NEUT (AUTO) 6.6 10^3/uL (1.7-8.2); BASOPHILS % (AUTO) 0.4 % (0-2); EOSINOPHILS % (AUTO) 1.1 % (0-6); HEMATOCRIT 36.6 % (36.0-47.0); HEMOGLOBIN 12.6 g/dL (12.0-15.5); LYMPHOCYTES % (AUTO) 11.4 % (13-45); MEAN CORPUSCULAR HEMOGLOBIN 29.3 pg (27.0-33.4); MEAN CORPUSCULAR HGB CONC 34.3 g/dL (32.0-36.0); MEAN CORPUSCULAR VOLUME 85 fl (80-97); MONOCYTES % (AUTO) 7.7 % (3-13); PLATELET COUNT 172 10^3/uL (150-450); RED BLOOD COUNT 4.29 10^6/uL (3.72-5.28); RED CELL DISTRIBUTION WIDTH 14.3 % (11.5-14.0); SEGMENTED NEUTROPHILS % (AUTO) 79.4 % (42-78); TOTAL CELLS COUNTED % (AUTO) 100 %; WHITE BLOOD COUNT 8.3 10^3/uL (4.0-10.5)
--- NOTE | 2018-05-03 20:44 | RADIOLOGY REPORT (SQ) ---
EXAM DESCRIPTION: CHEST SINGLE VIEW COMPLETED DATE/TIME: 05/03/2018 8:31 pm REASON FOR STUDY: pre-op COMPARISON: 03/10/2017 NUMBER OF VIEWS: One view. TECHNIQUE: Single frontal radiographic view of the chest acquired. LIMITATIONS: None. FINDINGS: LUNGS AND PLEURA: No evidence of pulmonary edema or pneumonia. No pleural effusion. Attenu ated blood vessels and flattened josefina-diaphragms. MEDIASTINUM AND HILAR STRUCTURES: No masses. Contour normal. HEART AND VASCULAR STRUCTURES: Stable heart size. Normal vasculature. BONES: No acute findings. HARDWARE: None in the chest. OTHER: Large hiatal hernia. IMPRESSION: COPD. NO ACUTE RADIOGRAPHIC FINDING IN THE CHEST. TECHNICAL DOCUMENTATION: JOB ID: [id number] [employer]- All Rights Reserved Reading location - IP/workstation name: [email or web address]
[2018-05-03 20:50] LABS: INTERNATIONAL RATION (INR) 0.94; PROTHROMBIN TIME 13.1 SEC (11.4-15.4)
[2018-05-03 20:51] LABS: PARTIAL THROMBOPLASTIN TIME 24.7 SEC (23.5-35.8)
[2018-05-03 20:57] LABS: APPEARANCE,URINE CLEAR; BILIRUBIN,URINE NEGATIVE (NEGATIVE); COLOR,URINE STRAW; GLUCOSE, URINE NEGATIVE (NEGATIVE); KETONES,URINE NEGATIVE (NEGATIVE); LEUKOCYTE ESTERASE,URINE NEGATIVE (NEGATIVE); NITRITE,URINE NEGATIVE (NEGATIVE); PROTEIN,URINE NEGATIVE (NEGATIVE); URINE SPECIFIC GRAVITY 1.015; UROBILINOGEN,URINE NEGATIVE mg/dL (<2.0)
[2018-05-03 21:51] LABS: ALANINE AMINOTRANSFERASE 24 U/L (9-52); ALBUMIN 3.5 g/dL (3.5-5.0); ALKALINE PHOSPHATASE 78 U/L (38-126); ANION GAP 6 (5-19); ASPARTATE AMINO TRANSFERASE 26 U/L (14-36); BILIRUBIN,DIRECT 0.3 mg/dL (0.0-0.4); BILIRUBIN,TOTAL 0.5 mg/dL (0.2-1.3); BLOOD UREA NITROGEN 18 mg/dL (7-20); CALCIUM 9.1 mg/dL (8.4-10.2); CARBON DIOXIDE 26 mmol/L (22-30); CHLORIDE 107 mmol/L (98-107); GLUCOSE 116 mg/dL (75-110); POTASSIUM 4.5 mmol/L (3.6-5.0); SODIUM 139.4 mmol/L (137-145); TOTAL PROTEIN 5.7 g/dL (6.3-8.2)
[2018-05-03] MEDS ORDERED: DEXTROSE 40% GEL 15 GM TUBE PO PRN ×2 (22:48)
[2018-05-03] MEDS ORDERED: DEXTROSE 50%-WATER 25 GM/50 ML DISP.SYRIN IV PRN ×2 (22:48)
[2018-05-03] MEDS ORDERED: GLUCAGON,HUMAN RECOMB 1 MG INJ SUBCUT PRN (22:48)
[2018-05-03] MEDS ORDERED: ACETAMINOPHEN 650 MG SUPP.RECT PR PRN (22:56)
[2018-05-03] MEDS ORDERED: MORPHINE SULFATE 10 MG/ML INJ IV PRN ×3 (22:56)
[2018-05-03] MEDS ORDERED: FAMOTIDINE INJ/PF 20 MG/2 ML SDV IV ONE (23:20)
--- NOTE | 2018-05-04 00:51 | EKG REPORT ---
SEVERITY:- BORDERLINE ECG - SINUS TACHYCARDIA BORDERLINE RIGHT AXIS DEVIATION BORDERLINE PROLONGED QT INTERVAL : Confirmed by: Alesia Boswell MD 04-May-2018 00:50:41
[2018-05-04] MEDS: RINGERS SOLUTION,LACTATED 1,000 ML IV PRN ×3 (04:34→16:55)
[2018-05-04 06:18] LABS: ABSOLUTE EOSINOPHILS # (AUTO) 0.1 10^3/uL (0.0-0.6); ABSOLUTE LYMPHOCYTES (AUTO) 0.9 10^3/uL (0.5-4.7); ABSOLUTE MONOCYTES (AUTO) 0.8 10^3/uL (0.1-1.4); ABSOLUTE NEUT (AUTO) 5.8 10^3/uL (1.7-8.2); BASOPHILS % (AUTO) 0.2 % (0-2); EOSINOPHILS % (AUTO) 0.7 % (0-6); HEMATOCRIT 36.1 % (36.0-47.0); HEMOGLOBIN 12.3 g/dL (12.0-15.5); LYMPHOCYTES % (AUTO) 12.5 % (13-45); MEAN CORPUSCULAR HEMOGLOBIN 28.9 pg (27.0-33.4); MEAN CORPUSCULAR HGB CONC 34.1 g/dL (32.0-36.0); MEAN CORPUSCULAR VOLUME 85 fl (80-97); MONOCYTES % (AUTO) 10.2 % (3-13); PLATELET COUNT 181 10^3/uL (150-450); RED BLOOD COUNT 4.26 10^6/uL (3.72-5.28); RED CELL DISTRIBUTION WIDTH 14.2 % (11.5-14.0); SEGMENTED NEUTROPHILS % (AUTO) 76.4 % (42-78); TOTAL CELLS COUNTED % (AUTO) 100 %; WHITE BLOOD COUNT 7.6 10^3/uL (4.0-10.5)
[2018-05-04] MEDS: HEPARIN SOD (PORCINE) 5,000 UNIT/ML 1 ML SYRINGE SUBCUT SCH ×3 (06:23→21:35)
[2018-05-04 06:33] LABS: ANION GAP 6 (5-19); BLOOD UREA NITROGEN 16 mg/dL (7-20); CALCIUM 8.7 mg/dL (8.4-10.2); CARBON DIOXIDE 29 mmol/L (22-30); CHLORIDE 105 mmol/L (98-107); GLUCOSE 109 mg/dL (75-110); POTASSIUM 4.9 mmol/L (3.6-5.0); SODIUM 140.1 mmol/L (137-145)
--- NOTE | 2018-05-04 06:41 | PDOC H&P ---
History of Present Illness Admission Date/PCP: 05/03/18 21:51 CINDY KEARNS PA-C Patient complains of: Left hip injury History of Present Illness: SANTIAGO GLEZ is a 87 year old female who presented to the emergency room with a history of an acute left hip injury resulting from a fall at home approximately 1 hour prior to her arrival. She indicates that she was walking in her home using her walker when she pivoted to turn to the left and somehow tripped and fell landing on her left hip and buttock area. She did not strike her head nor did she become unconscious at any point prior to, during or after the fall. She had instantaneous severe sharp pain in her left hip which was worsened by attempts at movement. She had to move herself short distance to get to her phone which was hanging on her walker. This took several very painful attempts and approximately 15-20 minutes, but she was eventually able to reach her phone and call for help. She describes the pain as an exquisitely severe, sharp, grating pain without radiation, present deep in her left hip and worsened by movement and palpation. She had not identified any ameliorating factors for her left hip pain higher to her arrival but she admits prior similar episodes with other fractures. She was brought to the emergency room via EMS. In the emergency room she was determined to have an acute impacted fracture of her left femoral neck. She was subsequently admitted to the hospital to the hospitalist service and Dr. Hamilton Stephens was consulted for definitive orthopedic care. Past Medical History Cardiac Medical History: Reports: Atrial Fibrillation, Hyperlipidema, Hypertension Denies: Coronary Artery Disease, Myocardial Infarction Pulmonary Medical History: Reports: Pneumonia - 1997 AFTER SURGERY Denies: Asthma, Bronchitis, Chronic Obstructive Pulmonary Disease (COPD) EENT Medical History: Reports: None Neurological Medical History: Denies: Hemorrhagic CVA, Ischemic CVA, Seizures Endocrine Medical History: Denies: Diabetes Mellitus Type 1, Diabetes Mellitus Type 2, Hyperthyroidism, Hypothyroidism Renal/ Medical History: Denies: Chronic Kidney Disease, Nephrolithiasis Malignancy Medical History: Reports: None GI Medical History: Reports: Hiatal Hernia Denies: Cirrhosis, Hepatitis Musculoskeltal Medical History: Reports: Arthritis, Other - History of pubic ramus fracture and humeral fracture on the right. Denies: Gout Skin Medical History: Denies: Eczema, Psoriasis Psychiatric Medical History: Denies: Alcohol Dependency, Depression, General Anxiety Disorder, Substance Abuse, Tobacco Dependency Traumatic Medical History: Reports: None Hematology: Reports: Anemia Denies: Bleeding Tendencies Infectious Medical History: Reports: None Past Surgical History Past Surgical History: Reports: Cholecystectomy, Hysterectomy, Other - Breast biopsy Social History Information Source: Patient Lives with: Alone Smoking Status: Never Smoker Frequency of Alcohol Use: None Hx Recreational Drug Use: No Drugs: None Hx Prescription Drug Abuse: No - Advance Directive Resuscitation Status: Full Code Surrogate healthcare decision maker:: Radha Hogan Family History Family History: Hypertension Parental Family History Reviewed: Yes Children Family History Reviewed: No Sibling(s) Family History Reviewed.: Yes Medication/Allergy Home Medications: Azithromycin [Zithromax 250 mg Tablet] ASDIR PRN 05/03/18 Cetirizine HCl [Zyrtec 10 mg Tablet] 10 mg PO DAILY 05/03/18 Losartan Potassium [Losartan Potassium] 50 mg PO DAILY 05/03/18 Mupirocin [Bactroban 2% Ointment 22 gm] 1 applic TOP ASDIR PRN 05/03/18 Allergies/Adverse Reactions: ibuprofen Allergy (Severe, Verified 05/03/18 19:31) hydrocodone Allergy (Verified 05/03/18 19:31) Penicillins Allergy (Verified 05/03/18 19:31) gabapentin Adverse Reaction (Severe, Verified 05/03/18 19:31) Review of Systems Constitutional: ABSENT: chills, fever(s) Eyes: ABSENT: visual disturbances, other - Ocular pain Ears: ABSENT: hearing changes, other - Ear pain Nose, Mouth, and Throat: ABSENT: mouth pain, sore throat Cardiovascular: ABSENT: chest pain, dyspnea on exertion, edema, orthropnea, palpitations Respiratory: ABSENT: cough, dyspnea Gastrointestinal: ABSENT: abdominal pain, constipation, diarrhea, nausea, vomiting Genitourinary: ABSENT: dysuria, hematuria Musculoskeletal: PRESENT: as per HPI, deformity - Left hip, acute, other - Acute left hip pain Integumentary: ABSENT: pruritus, rash Neurological: ABSENT: confusion, convulsions, memory loss, syncope, vertigo Psychiatric: ABSENT: anxiety, depression Endocrine: ABSENT: heat intolerance Hematologic/Lymphatic: ABSENT: easy bleeding, easy bruising Allergic/Immunologic: PRESENT: seasonal rhinorrhea Physical Exam Vital Signs: Temp Pulse Resp BP Pulse Ox 97.9 F 110 H 22 H 155/69 H 97 05/03/18 22:44 05/03/18 22:44 05/03/18 22:44 05/03/18 22:44 05/03/18 22:44 General appearance: PRESENT: no acute distress, cooperative Head exam: PRESENT: atraumatic, normocephalic Eye exam: PRESENT: EOMI. ABSENT: nystagmus, scleral icterus Ear exam: PRESENT: normal external ear exam. ABSENT: bleeding Mouth exam: PRESENT: dry mucosa, neck supple Neck exam: ABSENT: JVD, thyromegaly, tracheal deviation Respiratory exam: PRESENT: clear to auscultation abelardo, symmetrical, unlabored Cardiovascular exam: PRESENT: RRR. ABSENT: clicks, gallop, rubs Pulses: PRESENT: normal radial pulses, normal dorsalis pedis pul Vascular exam: PRESENT: normal capillary refill. ABSENT: pallor GI/Abdominal exam: PRESENT: normal bowel sounds, soft Rectal exam: PRESENT: deferred Extremities exam: PRESENT: tenderness - Left hip exquisitely tender to palpation , other - Lower extremity is noted to be shortened and externally rotated with extreme pain on any range of motion Musculoskeletal exam: PRESENT: deformity - Left hip is shortened and externally rotated, tenderness - Extreme pain left hip with any range of motion or movement. ABSENT: dislocation Neurological exam: PRESENT: alert, oriented to person, oriented to place, oriented to time, oriented to situation, CN II-XII grossly intact. ABSENT: motor sensory deficit Psychiatric exam: PRESENT: appropriate affect, normal mood Skin exam: PRESENT: dry, intact, warm. ABSENT: jaundice, rash, urticaria Results Impressions: Hip X-Ray 05/03/18 19:14 IMPRESSION: Osteopenia. Acute impacted fracture of the left femoral neck. Chest X-Ray 05/03/18 20:12 IMPRESSION: COPD. NO ACUTE RADIOGRAPHIC FINDING IN THE CHEST. Assessment & Plan - Diagnosis (1) Fracture of femoral neck, left, closed Qualifiers: Encounter type: initial encounter Qualified Code(s): S72.002A - Fracture of unspecified part of neck of left femur, initial encounter for closed fracture Is this a current diagnosis for this admission?: Yes Plan: Patient will be treated for her hip fracture by Dr. Hamilton Stephens in consultation. Patient's fracture pain will be controlled utilizing intravenous morphine sulfate on a sliding scale based on her pain rating. She will be given all usual supportive cares such as IV fluids (2) Hypertension Qualifiers: Hypertension type: essential hypertension Qualified Code(s): I10 - Essential (primary) hypertension Is this a current diagnosis for this admission?: Yes Plan: Patient will be treated with her usual antihypertensive regimen once she is again able to take medications by mouth. In the meantime she will have a as needed dosage of hydralazine 20 mg IV every 4 hours as needed systolic blood pressure greater than 160 or diastolic blood pressure greater than 100. - Time Time Spent: 30 to 50 Minutes Critical Time spent with patient: Less than 15 minutes Medications reviewed and adjusted accordingly: Yes - Inpatient Certification Based on my medical assessment, after consideration of the patient's comorbidities, presenting symptoms, or acuity I expect that the services needed warrant INPATIENT care.: Yes I certify that my determination is in accordance with my understanding of Medicare's requirements for reasonable and necessary INPATIENT services [42 CFR 412.3e].: Yes Medical Necessity: Need for Pain Control, Need for Surgery, Risk of Complication if Not Cared For in Hospital
--- NOTE | 2018-05-04 07:16 | PDOC CONSULTATION ---
Consultation Consult Date: 05/04/18 Consult reason:: Left hip fracture History of Present Illness Admission Date/PCP: 05/03/18 21:51 CINDY KEARNS PA-C History of Present Illness: SANTIAGO GLEZ is a 87 year old female Patient is an 87-year-old white female household ambulator who fell and sustained a left hip injury. She was evaluated in the emergency room with a displaced left femoral neck fracture was identified. She is admitted to the hospitalist service and orthopedics was consulted for fracture management. Past Medical History Cardiac Medical History: Reports: Atrial Fibrillation, Hyperlipidema, Hypertension Denies: Coronary Artery Disease, Myocardial Infarction Pulmonary Medical History: Reports: Pneumonia - 1997 AFTER SURGERY Denies: Asthma, Bronchitis, Chronic Obstructive Pulmonary Disease (COPD) EENT Medical History: Reports: None Neurological Medical History: Denies: Hemorrhagic CVA, Ischemic CVA, Seizures Endocrine Medical History: Denies: Diabetes Mellitus Type 1, Diabetes Mellitus Type 2, Hyperthyroidism, Hypothyroidism Renal/ Medical History: Denies: Chronic Kidney Disease, Nephrolithiasis Malignancy Medical History: Reports: None GI Medical History: Reports: Hiatal Hernia Denies: Cirrhosis, Hepatitis Musculoskeltal Medical History: Reports: Arthritis, Other - History of pubic ramus fracture and humeral fracture on the right. Denies: Gout Skin Medical History: Denies: Eczema, Psoriasis Psychiatric Medical History: Denies: Alcohol Dependency, Depression, General Anxiety Disorder, Substance Abuse, Tobacco Dependency Traumatic Medical History: Reports: None Hematology: Reports: Anemia Denies: Sickle Cell Disease, Bleeding Tendencies Infectious Medical History: Reports: None Past Surgical History Past Surgical History: Reports: Cholecystectomy, Hysterectomy, Other - Breast biopsy Denies: Amputation, Mastectomy, Pacemaker Social History Information Source: Patient, [facility] Records Lives with: Alone Smoking Status: Never Smoker Frequency of Alcohol Use: None Hx Recreational Drug Use: No Drugs: None Hx Prescription Drug Abuse: No - Advance Directive Resuscitation Status: Full Code Family History Family History: Hypertension Parental Family History Reviewed: No Children Family History Reviewed: No Sibling(s) Family History Reviewed.: No Medication/Allergy Home Medications: Azithromycin [Zithromax 250 mg Tablet] ASDIR PRN 05/03/18 Cetirizine HCl [Zyrtec 10 mg Tablet] 10 mg PO DAILY 05/03/18 Losartan Potassium [Losartan Potassium] 50 mg PO DAILY 05/03/18 Mupirocin [Bactroban 2% Ointment 22 gm] 1 applic TOP ASDIR PRN 05/03/18 Allergies/Adverse Reactions: ibuprofen Allergy (Severe, Verified 05/03/18 19:31) hydrocodone Allergy (Verified 05/03/18 19:31) Penicillins Allergy (Verified 05/03/18 19:31) gabapentin Adverse Reaction (Severe, Verified 18 19:31) Review of Systems All systems: as per PMH Physical Exam Vital Signs: Temp Pulse Resp BP Pulse Ox 36.9 C 106 H 18 140/61 H 91 L 05/04/18 03:59 05/04/18 03:59 05/04/18 03:59 05/04/18 03:59 05/04/18 03:59 Intake & Output 05/03/18 05/04/18 05/05/18 06:59 06:59 06:59 Weight 55.5 kg Physical Exam: Elderly white female lying in bed. She is alert and appropriate. He is in modest distress. General appearance: PRESENT: mild distress Head exam: PRESENT: normocephalic Respiratory exam: PRESENT: unlabored Cardiovascular exam: PRESENT: RRR Pulses: PRESENT: +1 pedal pulses bilateral Vascular exam: PRESENT: normal capillary refill GI/Abdominal exam: PRESENT: soft Rectal exam: PRESENT: deferred Extremities exam: PRESENT: other - Left lower extremity is externally rotated and shortened. Distal neurovascular examination is intact. Neurological exam: PRESENT: alert, awake, oriented to person, oriented to place , oriented to time, oriented to situation. ABSENT: motor sensory deficit Psychiatric exam: PRESENT: appropriate affect, normal mood. ABSENT: homicidal ideation, suicidal ideation Skin exam: PRESENT: dry, intact, warm. ABSENT: cyanosis, rash Results Laboratory Results: 05/04/18 05:37 05/04/18 05:37 05/04/18 05/04/18 05/04/18 05:37 05:37 05:37 WBC 7.6 RBC 4.26 Hgb 12.3 Hct 36.1 MCV 85 MCH 28.9 MCHC 34.1 RDW 14.2 H Plt Count 181 Seg Neutrophils % 76.4 Lymphocytes % 12.5 L Monocytes % 10.2 Eosinophils % 0.7 Basophils % 0.2 Absolute Neutrophils 5.8 Absolute Lymphocytes 0.9 Absolute Monocytes 0.8 Absolute Eosinophils 0.1 Absolute Basophils 0.0 Sodium 140.1 Potassium 4.9 Chloride 105 Carbon Dioxide 29 Anion Gap 6 BUN 16 Creatinine 0.78 Est GFR ( Amer) > 60 Est GFR (Non-Af Amer) > 60 Glucose 109 Calcium 8.7 Magnesium 2.1 TSH 0.80 Impressions: Hip X-Ray 05/03/18 19:14 IMPRESSION: Osteopenia. Acute impacted fracture of the left femoral neck. Chest X-Ray 05/03/18 20:12 IMPRESSION: COPD. NO ACUTE RADIOGRAPHIC FINDING IN THE CHEST. Status: Imported from PACS Assessment & Plan - Diagnosis (1) Closed left hip fracture Qualifiers: Encounter type: initial encounter Qualified Code(s): S72.002A - Fracture of unspecified part of neck of left femur, initial encounter for closed fracture Is this a current diagnosis for this admission?: Yes Plan: 87-year-old white female with a displaced left femoral neck fracture. Patient be best served with a left proximal femoral hemiarthroplasty. This is discussed with her in the presence of her nurse and modest detail. We will proceed pending medical clearance and or availability. - Time Time Spent: 50 to 70 Minutes Anticipated discharge: Home with Homehealth Within: Other
[2018-05-04] MEDS ORDERED: VANCOMYCIN HCL 1,000 MG in DEXTROSE 5%-WATER 250 ML IV PRN (07:47)
[2018-05-04] MEDS ORDERED: TRANEXAMIC ACID INJ/PF 1,000 MG/10 ML SDV IV PRN (07:48)
[2018-05-04] MEDS: FAMOTIDINE INJ/PF 20 MG/2 ML SDV IV SCH ×2 (10:49→21:35)
[2018-05-04] MEDS ORDERED: MIDAZOLAM 2 MG/2 ML INJ ONE (13:30)
[2018-05-04] MEDS ORDERED: FENTANYL CITRATE INJ/PF 100 MCG/2 ML AMPUL ONE (13:30)
[2018-05-04] MEDS ORDERED: PROPOFOL INJ 200 MG/20 ML VIAL IV ONE (13:31)
[2018-05-04] MEDS ORDERED: TRANEXAMIC ACID INJ/PF 1,000 MG/10 ML SDV IV ONE ×2 (13:31→15:33)
[2018-05-04] MEDS ORDERED: ONDANSETRON HCL INJ/PF 4 MG/2 ML SDV ONE (13:31)
[2018-05-04] MEDS ORDERED: BUPIVACAINE HCL/DEX-WATER/PF 15 MG/2 ML AMPULE ONE (13:32)
[2018-05-04] MEDS ORDERED: THROMBIN (BOVINE) TOPICAL 20000 UNIT VIAL ONE (13:36)
[2018-05-04] MEDS ORDERED: BUPIVACAINE HCL 0.25% /EPINEPHRINE INJ/PF 30 ML SDV ONE (13:36)
[2018-05-04] MEDS ORDERED: ONDANSETRON HCL INJ/PF 4 MG/2 ML SDV IV PRN (15:01)
[2018-05-04] MEDS ORDERED: DIPHENHYDRAMINE HCL 50 MG/ML VIAL IV PRN (15:01)
[2018-05-04] MEDS ORDERED: PROMETHAZINE HCL INJ 25 MG/1 ML VIAL IV PRN ×2 (15:01)
[2018-05-04] MEDS ORDERED: MORPHINE SULFATE 10 MG/ML INJ IV PRN ×2 (15:01→16:29)
[2018-05-04] MEDS ORDERED: MEPERIDINE HCL/PF INJ 25 MG/1 ML DISP.SYRIN IV PRN (15:01)
[2018-05-04] MEDS ORDERED: FENTANYL CITRATE INJ/PF 100 MCG/2 ML AMPUL IV PRN ×2 (15:01)
--- NOTE | 2018-05-04 15:02 | Operative Report ---
Operative Report DATE OF SURGERY: 05/04/18 PREOPERATIVE DIAGNOSIS: Left femoral neck fracture OPERATION: Left proximal femoral hemiarthroplasty SURGEON: SAIMA WHITE ANESTHESIA: Spinal TISSUE REMOVED OR ALTERED: Femoral head to pathology ESTIMATED BLOOD LOSS: 50 PROCEDURE: Implants used: [place] Accolade 2 stem, size 7, 47 mm unipolar head, standard neck With the patient in a right lateral decubitus position the left lower extremity hindquarter prepped and draped in a sterile fashion. A curvilinear incision made over the greater trochanter a posterior approach the hip was taken. The femur was retracted anteriorly and underlying femoral neck and head are retrieved using a corkscrew. The femoral head was measured and noted to be 47 millimeters. Attention is now turned to the femur. Access is gained to the femoral canal using a box osteotome to the piriformis fossa. The femur is then prepared using a series of tapered broaches until a number 7 broach is seated. A trial reduction was now performed using a 47 head and standard neck. Leg length was restored and there is excellent anterior posterior stability. A decision was made to proceed with this construct. All trial implants were removed. The final number 7 femoral stem is impacted into the canal. The standard neck is impacted onto the trunnion. Final unipolar head 47 millimeters is impacted onto the neck. The hip was reduced. The wound is copiously irrigated with pulsed lavage. A subsequent closed in layers using Vicryl and vasu. A sterile dressing is applied. The patient was returned to the recovery room in satisfactory condition.
--- NOTE | 2018-05-04 16:16 | RADIOLOGY REPORT (SQ) ---
EXAM DESCRIPTION: PELVIS AP COMPLETED DATE/TIME: 05/04/2018 4:06 pm REASON FOR STUDY: POST L HIP HEMIARTHROPLASTY COMPARISON: None. NUMBER OF VIEWS: One view TECHNIQUE: Digital radiographic images of the pelvis post-procedure LIMITATIONS: None. FINDINGS: BONES: No worrisome or unexpected findings post-procedure. DEVICE: Bi-polar prothesis. Device appears in appropriate location. SOFT TISSUES: No worrisome findings. Expected postoperative soft tissue changes. IMPRESSION: SATISFACTORY POSTOPERATIVE PELVIS. TECHNICAL DOCUMENTATION: JOB ID: [id number] [employer]- All Rights Reserved Reading location - IP/workstation name: [email or web address]
[2018-05-04] MEDS: ONDANSETRON HCL INJ/PF 4 MG/2 ML SDV IV PRN (16:51)
[2018-05-04] MEDS: OXYCODONE HCL IR 5 MG TABLET PO PRN (16:52)
--- NOTE | 2018-05-04 18:25 | PDOC PROGRESS REPORT ---
Subjective Progress Note for:: 05/04/18 Subjective:: No adverse events overnight. She is n.p.o. awaiting surgery. As long as she is sitting still she is fairly comfortable. When she tries to move her hip hurts her. Reason For Visit: LEFT HIP FRACTURE Physical Exam Vital Signs: Temp Pulse Resp BP Pulse Ox 97.5 F 96 16 136/73 H 96 05/04/18 16:39 05/04/18 16:39 05/04/18 16:39 05/04/18 16:39 05/04/18 16:39 Intake & Output 05/03/18 05/04/18 05/05/18 06:59 06:59 06:59 Intake Total 3594 Output Total 1970 Balance 1624 Weight 55.5 kg General appearance: PRESENT: no acute distress, cooperative, disheveled Head exam: PRESENT: other - She has what looks like an excoriation on the left side of her nose in the left side of her upper lip Respiratory exam: PRESENT: clear to auscultation abelardo, symmetrical, unlabored. ABSENT: accessory muscle use, chest wall tenderness, crackles, rhonchi, tachypnea, wheezes Cardiovascular exam: PRESENT: RRR, +S1, +S2. ABSENT: diastolic murmur, systolic murmur Vascular exam: PRESENT: normal capillary refill GI/Abdominal exam: PRESENT: normal bowel sounds, soft. ABSENT: distended, guarding, rebound, tenderness Extremities exam: ABSENT: clubbing, pedal edema Musculoskeletal exam: PRESENT: deformity - Swelling of the left hip, tenderness - Left hip Neurological exam: PRESENT: alert, awake, oriented to person, oriented to place , oriented to time Psychiatric exam: PRESENT: flat affect Skin exam: PRESENT: dry, warm Results Laboratory Results: 05/04/18 05:37 05/04/18 05:37 05/04/18 05/04/18 05/04/18 05:37 05:37 05:37 WBC 7.6 RBC 4.26 Hgb 12.3 Hct 36.1 MCV 85 MCH 28.9 MCHC 34.1 RDW 14.2 H Plt Count 181 Seg Neutrophils % 76.4 Lymphocytes % 12.5 L Monocytes % 10.2 Eosinophils % 0.7 Basophils % 0.2 Absolute Neutrophils 5.8 Absolute Lymphocytes 0.9 Absolute Monocytes 0.8 Absolute Eosinophils 0.1 Absolute Basophils 0.0 Sodium 140.1 Potassium 4.9 Chloride 105 Carbon Dioxide 29 Anion Gap 6 BUN 16 Creatinine 0.78 Est GFR ( Amer) > 60 Est GFR (Non-Af Amer) > 60 Glucose 109 Calcium 8.7 Magnesium 2.1 TSH 0.80 Impressions: Hip X-Ray 05/03/18 19:14 IMPRESSION: Osteopenia. Acute impacted fracture of the left femoral neck. Chest X-Ray 05/03/18 20:12 IMPRESSION: COPD. NO ACUTE RADIOGRAPHIC FINDING IN THE CHEST. Pelvis X-Ray 05/04/18 15:29 IMPRESSION: SATISFACTORY POSTOPERATIVE PELVIS. Assessment & Plan - Diagnosis (1) Fracture of femoral neck, left, closed Qualifiers: Encounter type: initial encounter Qualified Code(s): S72.002A - Fracture of unspecified part of neck of left femur, initial encounter for closed fracture Is this a current diagnosis for this admission?: Yes Plan: Plan is to go to the OR today for a left hemiarthroplasty. We will follow up on orthopedics weightbearing recommendations postoperatively. Anticipate that she will need [facility] facility placement. - Time Time Spent with patient: 15-24 minutes
[2018-05-05] MEDS: RINGERS SOLUTION,LACTATED 1,000 ML IV PRN ×3 (00:18→16:48)
[2018-05-05] MEDS ORDERED: VANCOMYCIN HCL 1,000 MG in DEXTROSE 5%-WATER 250 ML IV ONE (03:00)
[2018-05-05] MEDS: OXYCODONE HCL IR 5 MG TABLET PO PRN (03:24)
[2018-05-05] MEDS: HEPARIN SOD (PORCINE) 5,000 UNIT/ML 1 ML SYRINGE SUBCUT SCH ×3 (05:45→21:36)
[2018-05-05 05:54] LABS: HEMATOCRIT 38.2 % (36.0-47.0); HEMOGLOBIN 13.1 g/dL (12.0-15.5); MEAN CORPUSCULAR HEMOGLOBIN 29.2 pg (27.0-33.4); MEAN CORPUSCULAR HGB CONC 34.3 g/dL (32.0-36.0); MEAN CORPUSCULAR VOLUME 85 fl (80-97); PLATELET COUNT 162 10^3/uL (150-450); RED CELL DISTRIBUTION WIDTH 14.3 % (11.5-14.0); WHITE BLOOD COUNT 10.7 10^3/uL (4.0-10.5)
[2018-05-05 06:15] LABS: ANION GAP 6 (5-19); BLOOD UREA NITROGEN 13 mg/dL (7-20); CALCIUM 8.5 mg/dL (8.4-10.2); CARBON DIOXIDE 25 mmol/L (22-30); CHLORIDE 101 mmol/L (98-107); GLUCOSE 152 mg/dL (75-110); POTASSIUM 4.4 mmol/L (3.6-5.0); SODIUM 132.4 mmol/L (137-145)
[2018-05-05 06:27] LABS: ABSOLUTE LYMPHOCYTES# (MANUAL) 0.4 10^3/uL (0.5-4.7); ABSOLUTE MONOCYTES # (MANUAL) 0.7 10^3/uL (0.1-1.4); ABSOLUTE NEUTROPHILS# (MANUAL) 9.5 10^3/uL (1.7-8.2); BASOPHILS % (MANUAL) 0 % (0-2); EOSINOPHILS % (MANUAL) 0 % (0-6); LYMPHOCYTES % (MANUAL) 4 % (13-45); MONOCYTES % (MANUAL) 7 % (3-13); SEGMENTED NEUTROPHILS % (MAN) 89 % (42-78); TOTAL CELLS COUNTED 100
[2018-05-05 06:30] LABS: OVALOCYTES 1+; POIKILOCYTOSIS 1+; SCHISTOCYTES 1+; TOXIC GRANULATION 1+; TOXIC VACUOLATION PRESENT
[2018-05-05 06:31] LABS: PLATELET COMMENT ADEQUATE; TEAR DROP CELLS 1+
--- NOTE | 2018-05-05 07:21 | PDOC PROGRESS REPORT ---
Subjective Progress Note for:: 05/05/18 Reason For Visit: LEFT HIP FRACTURE 87-year-old white female postop day 1 status post left proximal femoral hemiarthroplasty for femoral neck fracture. No physical therapy yesterday. Patient comfortable overnight. Somewhat sedated this morning suggesting overmedication. Physical Exam Vital Signs: Temp Pulse Resp BP Pulse Ox 36.9 C 100 16 150/92 H 96 05/05/18 04:00 05/05/18 04:00 05/05/18 04:00 05/05/18 04:00 05/05/18 04:00 Intake & Output 05/04/18 05/05/18 05/06/18 06:59 06:59 06:59 Intake Total 5281 Output Total 1970 Balance 3311 Weight 55.5 kg 55.5 kg General appearance: PRESENT: no acute distress, mild distress Head exam: PRESENT: normocephalic Respiratory exam: PRESENT: unlabored Cardiovascular exam: PRESENT: RRR Pulses: PRESENT: +1 pedal pulses bilateral Vascular exam: PRESENT: normal capillary refill GI/Abdominal exam: PRESENT: soft Rectal exam: PRESENT: deferred Extremities exam: PRESENT: other - Left hip dressing clean dry and intact. Leg lengths are equal. Distal neurovascular examination is intact. Neurological exam: PRESENT: awake Skin exam: PRESENT: dry, intact, warm. ABSENT: cyanosis, rash Results Laboratory Results: 05/05/18 05:31 05/05/18 05:31 05/05/18 05/05/18 05:31 05:31 WBC 10.7 H RBC 4.50 Hgb 13.1 Hct 38.2 MCV 85 MCH 29.2 MCHC 34.3 RDW 14.3 H Plt Count 162 Seg Neutrophils % Not Reportable Lymphocytes % Not Reportable Monocytes % Not Reportable Eosinophils % Not Reportable Basophils % Not Reportable Absolute Neutrophils Not Reportable Absolute Lymphocytes Not Reportable Absolute Monocytes Not Reportable Absolute Eosinophils Not Reportable Absolute Basophils Not Reportable Sodium 132.4 L Potassium 4.4 Chloride 101 Carbon Dioxide 25 Anion Gap 6 BUN 13 Creatinine 0.61 Est GFR ( Amer) > 60 Est GFR (Non-Af Amer) > 60 Glucose 152 H Calcium 8.5 Magnesium 1.7 Impressions: Hip X-Ray 05/03/18 19:14 IMPRESSION: Osteopenia. Acute impacted fracture of the left femoral neck. Chest X-Ray 05/03/18 20:12 IMPRESSION: COPD. NO ACUTE RADIOGRAPHIC FINDING IN THE CHEST. Pelvis X-Ray 05/04/18 15:29 IMPRESSION: SATISFACTORY POSTOPERATIVE PELVIS. Status: Imported from PACS Assessment & Plan - Diagnosis (1) Closed left hip fracture Qualifiers: Encounter type: initial encounter Qualified Code(s): S72.002A - Fracture of unspecified part of neck of left femur, initial encounter for closed fracture Is this a current diagnosis for this admission?: Yes Plan: Patient to be mobilized with physical therapy and weightbearing as tolerated basis. Anticipate discharge to a [facility] facility when bed available. - Time Time Spent with patient: 15-24 minutes Anticipated discharge: SNF Within: when bed available
[2018-05-05] MEDS: TRAMADOL HCL 50 MG TABLET PO PRN (08:53)
[2018-05-05] MEDS: FAMOTIDINE INJ/PF 20 MG/2 ML SDV IV SCH ×2 (09:24→21:36)
[2018-05-05] MEDS ORDERED: TRANEXAMIC ACID INJ/PF 1,000 MG/10 ML SDV IV ONE (16:00)
--- NOTE | 2018-05-05 19:35 | PDOC PROGRESS REPORT ---
Subjective Progress Note for:: 05/05/18 Subjective:: No adverse events overnight. She had her surgery yesterday afternoon and by report tolerated the procedure well. She was very sleepy today and did not really want to wake up and talk to me but she did arouse to noxious stimuli. She is not been eating very much today. Reason For Visit: LEFT HIP FRACTURE Physical Exam Vital Signs: Temp Pulse Resp BP Pulse Ox 97.7 F 103 H 19 127/74 H 95 05/05/18 15:59 05/05/18 15:59 05/05/18 15:59 05/05/18 15:59 05/05/18 15:59 Intake & Output 05/04/18 05/05/18 05/06/18 06:59 06:59 06:59 Intake Total 5281 2162 Output Total 1970 Balance 3311 2162 Weight 55.5 kg 55.5 kg General appearance: PRESENT: disheveled, other - Somnolent. ABSENT: no acute distress Respiratory exam: PRESENT: clear to auscultation abelardo, symmetrical, unlabored. ABSENT: accessory muscle use, rales, rhonchi, tachypnea, wheezes Cardiovascular exam: PRESENT: RRR, +S1, +S2 Vascular exam: PRESENT: normal capillary refill GI/Abdominal exam: PRESENT: normal bowel sounds, soft. ABSENT: distended, guarding, rebound, tenderness Extremities exam: PRESENT: other - Clean bandage over left hip. ABSENT: clubbing, pedal edema Musculoskeletal exam: PRESENT: other - Postsurgical changes of left hip. ABSENT : deformity Neurological exam: PRESENT: other - Responds to noxious stimuli then goes back to sleep. ABSENT: awake Skin exam: PRESENT: dry, warm Results Laboratory Results: 05/05/18 05:31 05/05/18 05:31 05/05/18 05/05/18 05:31 05:31 WBC 10.7 H RBC 4.50 Hgb 13.1 Hct 38.2 MCV 85 MCH 29.2 MCHC 34.3 RDW 14.3 H Plt Count 162 Seg Neutrophils % Not Reportable Lymphocytes % Not Reportable Monocytes % Not Reportable Eosinophils % Not Reportable Basophils % Not Reportable Absolute Neutrophils Not Reportable Absolute Lymphocytes Not Reportable Absolute Monocytes Not Reportable Absolute Eosinophils Not Reportable Absolute Basophils Not Reportable Sodium 132.4 L Potassium 4.4 Chloride 101 Carbon Dioxide 25 Anion Gap 6 BUN 13 Creatinine 0.61 Est GFR ( Amer) > 60 Est GFR (Non-Af Amer) > 60 Glucose 152 H Calcium 8.5 Magnesium 1.7 Impressions: Hip X-Ray 05/03/18 19:14 IMPRESSION: Osteopenia. Acute impacted fracture of the left femoral neck. Chest X-Ray 05/03/18 20:12 IMPRESSION: COPD. NO ACUTE RADIOGRAPHIC FINDING IN THE CHEST. Pelvis X-Ray 05/04/18 15:29 IMPRESSION: SATISFACTORY POSTOPERATIVE PELVIS. Assessment & Plan - Diagnosis (1) Fracture of femoral neck, left, closed Qualifiers: Encounter type: initial encounter Qualified Code(s): S72.002A - Fracture of unspecified part of neck of left femur, initial encounter for closed fracture Is this a current diagnosis for this admission?: Yes Plan: We hope that she will start waking up a little bit more tomorrow. Activity recommendations per orthopedics. She will likely need SNF placement. Given her lethargy and lack of appetite today, I think she should be more awake so that we can get a better assessment on her before we send her out to a facility. - Time Time Spent with patient: 15-24 minutes
[2018-05-06] MEDS: RINGERS SOLUTION,LACTATED 1,000 ML IV PRN ×2 (01:08→09:56)
[2018-05-06] MEDS: HEPARIN SOD (PORCINE) 5,000 UNIT/ML 1 ML SYRINGE SUBCUT SCH ×3 (05:40→21:30)
[2018-05-06 06:54] LABS: ABSOLUTE EOSINOPHILS # (AUTO) 0.2 10^3/uL (0.0-0.6); ABSOLUTE LYMPHOCYTES (AUTO) 0.6 10^3/uL (0.5-4.7); ABSOLUTE MONOCYTES (AUTO) 1.1 10^3/uL (0.1-1.4); ABSOLUTE NEUT (AUTO) 8.9 10^3/uL (1.7-8.2); BASOPHILS % (AUTO) 0.1 % (0-2); EOSINOPHILS % (AUTO) 1.6 % (0-6); HEMATOCRIT 33.7 % (36.0-47.0); HEMOGLOBIN 11.8 g/dL (12.0-15.5); LYMPHOCYTES % (AUTO) 5.9 % (13-45); MEAN CORPUSCULAR HEMOGLOBIN 29.6 pg (27.0-33.4); MEAN CORPUSCULAR VOLUME 85 fl (80-97); MONOCYTES % (AUTO) 10.5 % (3-13); PLATELET COUNT 145 10^3/uL (150-450); RED BLOOD COUNT 3.99 10^6/uL (3.72-5.28); RED CELL DISTRIBUTION WIDTH 14.3 % (11.5-14.0); SEGMENTED NEUTROPHILS % (AUTO) 81.9 % (42-78); TOTAL CELLS COUNTED % (AUTO) 100 %; WHITE BLOOD COUNT 10.9 10^3/uL (4.0-10.5)
[2018-05-06 07:07] LABS: ANION GAP 7 (5-19); BLOOD UREA NITROGEN 16 mg/dL (7-20); CALCIUM 8.5 mg/dL (8.4-10.2); CARBON DIOXIDE 26 mmol/L (22-30); CHLORIDE 100 mmol/L (98-107); GLUCOSE 97 mg/dL (75-110); POTASSIUM 3.9 mmol/L (3.6-5.0); SODIUM 132.6 mmol/L (137-145)
--- NOTE | 2018-05-06 07:14 | PDOC PROGRESS REPORT ---
Subjective Progress Note for:: 05/06/18 Reason For Visit: LEFT HIP FRACTURE 87-year-old white female now postop day 3 status post left proximal femoral hemiarthroplasty for femoral neck fracture. Patient with no new complaints this morning. Physical Exam Vital Signs: Temp Pulse Resp BP Pulse Ox 37.1 C 108 H 16 152/76 H 94 05/05/18 23:47 05/06/18 02:00 05/05/18 23:47 05/05/18 23:47 05/05/18 23:47 Intake & Output 05/05/18 05/06/18 05/07/18 06:59 06:59 06:59 Intake Total 5281 3162 Output Total 1970 Balance 3311 3162 Weight 55.5 kg 55.5 kg General appearance: PRESENT: no acute distress Head exam: PRESENT: normocephalic Respiratory exam: PRESENT: unlabored Cardiovascular exam: PRESENT: RRR Extremities exam: PRESENT: other - Left hip dressing clean dry and intact. Leg lengths are equal. Distal neurovascular examination is intact. Results Impressions: Hip X-Ray 05/03/18 19:14 IMPRESSION: Osteopenia. Acute impacted fracture of the left femoral neck. Chest X-Ray 05/03/18 20:12 IMPRESSION: COPD. NO ACUTE RADIOGRAPHIC FINDING IN THE CHEST. Pelvis X-Ray 05/04/18 15:29 IMPRESSION: SATISFACTORY POSTOPERATIVE PELVIS. Status: Imported from PACS Assessment & Plan - Diagnosis (1) Closed left hip fracture Qualifiers: Encounter type: initial encounter Qualified Code(s): S72.002A - Fracture of unspecified part of neck of left femur, initial encounter for closed fracture Is this a current diagnosis for this admission?: Yes Plan: Mobilized with physical therapy and weightbearing as tolerated basis. [facility] need [facility] when [facility] available. - Time Time Spent with patient: 15-24 minutes Anticipated discharge: SNF Within: when bed available
[2018-05-06] MEDS: ONDANSETRON HCL INJ/PF 4 MG/2 ML SDV IV PRN ×2 (09:56→16:14)
[2018-05-06] MEDS: FAMOTIDINE INJ/PF 20 MG/2 ML SDV IV SCH ×2 (10:00→21:36)
[2018-05-06] MEDS: TRAMADOL HCL 50 MG TABLET PO PRN (21:35)
--- NOTE | 2018-05-06 22:30 | PDOC PROGRESS REPORT ---
Subjective Progress Note for:: 05/06/18 Subjective:: Patient is somewhat confused today. The nurses report an episode of emesis with white frothy material. Reason For Visit: LEFT HIP FRACTURE Physical Exam Vital Signs: Temp Pulse Resp BP Pulse Ox 98.1 F 89 16 160/63 H 100 05/06/18 20:00 05/06/18 20:00 05/06/18 20:00 05/06/18 20:00 05/06/18 20:00 Intake & Output 05/05/18 05/06/18 05/07/18 06:59 06:59 06:59 Intake Total 5281 3162 1000 Output Total 1970 Balance 3311 3162 1000 Weight 55.5 kg 55.5 kg General appearance: PRESENT: no acute distress, well-developed Respiratory exam: PRESENT: clear to auscultation abelardo, unlabored. ABSENT: rales, rhonchi, wheezes Cardiovascular exam: PRESENT: RRR, +S1, +S2 GI/Abdominal exam: PRESENT: normal bowel sounds, soft. ABSENT: tenderness Neurological exam: PRESENT: alert, awake, oriented to person. ABSENT: oriented to place, oriented to time, oriented to situation Psychiatric exam: PRESENT: appropriate affect, flat affect Results Laboratory Results: 05/06/18 04:02 05/06/18 04:02 05/06/18 05/06/18 04:02 04:02 WBC 10.9 H RBC 3.99 Hgb 11.8 L Hct 33.7 L MCV 85 MCH 29.6 MCHC 35.0 RDW 14.3 H Plt Count 145 L Seg Neutrophils % 81.9 H Lymphocytes % 5.9 L Monocytes % 10.5 Eosinophils % 1.6 Basophils % 0.1 Absolute Neutrophils 8.9 H Absolute Lymphocytes 0.6 Absolute Monocytes 1.1 Absolute Eosinophils 0.2 Absolute Basophils 0.0 Sodium 132.6 L Potassium 3.9 Chloride 100 Carbon Dioxide 26 Anion Gap 7 BUN 16 Creatinine 0.67 Est GFR ( Amer) > 60 Est GFR (Non-Af Amer) > 60 Glucose 97 Calcium 8.5 Magnesium 1.9 Impressions: Hip X-Ray 05/03/18 19:14 IMPRESSION: Osteopenia. Acute impacted fracture of the left femoral neck. Chest X-Ray 05/03/18 20:12 IMPRESSION: COPD. NO ACUTE RADIOGRAPHIC FINDING IN THE CHEST. Pelvis X-Ray 05/04/18 15:29 IMPRESSION: SATISFACTORY POSTOPERATIVE PELVIS. Assessment & Plan - Diagnosis (1) Closed left hip fracture Qualifiers: Encounter type: initial encounter Qualified Code(s): S72.002A - Fracture of unspecified part of neck of left femur, initial encounter for closed fracture Is this a current diagnosis for this admission?: Yes Plan: The incision is healing well. Please also see orthopedic surgery note. Physical and occupational therapies in place. She will likely need skilled nu rsing for ongoing rehab from her hip fracture. (2) Hyponatremia Is this a current diagnosis for this admission?: Yes Plan: Her serum sodium is slightly low. I will recheck it tomorrow. We may need to fluid restrict her. - Time Time Spent with patient: 15-24 minutes
[2018-05-07] MEDS: HEPARIN SOD (PORCINE) 5,000 UNIT/ML 1 ML SYRINGE SUBCUT SCH ×2 (05:45→14:27)
--- NOTE | 2018-05-07 07:13 | PDOC PROGRESS REPORT ---
Subjective Progress Note for:: 05/07/18 Reason For Visit: LEFT HIP FRACTURE 87-year-old white female now postop day 3 status post left proximal femoral hemiarthroplasty for femoral neck fracture. Patient with limited progress with physical therapy with no complaints of pain. Physical Exam Vital Signs: Temp Pulse Resp BP Pulse Ox 36.6 C 84 16 131/60 H 98 05/07/18 03:12 05/07/18 03:12 05/07/18 03:12 05/06/18 23:53 05/07/18 03:12 Intake & Output 05/06/18 05/07/18 05/08/18 06:59 06:59 06:59 Intake Total 3162 1000 Balance 3162 1000 Weight 55.5 kg 55.5 kg General appearance: PRESENT: no acute distress Head exam: PRESENT: normocephalic Respiratory exam: PRESENT: unlabored Cardiovascular exam: PRESENT: RRR Pulses: PRESENT: +1 pedal pulses bilateral GI/Abdominal exam: PRESENT: soft Rectal exam: PRESENT: deferred Extremities exam: PRESENT: other - Left hip dressing clean dry and intact. Leg lengths equal. Distal neurovascular examination is intact. Neurological exam: PRESENT: alert, awake, oriented to person, oriented to place, oriented to time, oriented to situation. ABSENT: motor sensory deficit Psychiatric exam: PRESENT: appropriate affect, normal mood. ABSENT: homicidal ideation, suicidal ideation Skin exam: PRESENT: dry, intact, warm. ABSENT: cyanosis, rash Results Laboratory Results: 05/06/18 04:02 05/06/18 04:02 05/06/18 05/06/18 04:02 04:02 WBC 10.9 H RBC 3.99 Hgb 11.8 L Hct 33.7 L MCV 85 MCH 29.6 MCHC 35.0 RDW 14.3 H Plt Count 145 L Seg Neutrophils % 81.9 H Lymphocytes % 5.9 L Monocytes % 10.5 Eosinophils % 1.6 Basophils % 0.1 Absolute Neutrophils 8.9 H Absolute Lymphocytes 0.6 Absolute Monocytes 1.1 Absolute Eosinophils 0.2 Absolute Basophils 0.0 Sodium 132.6 L Potassium 3.9 Chloride 100 Carbon Dioxide 26 Anion Gap 7 BUN 16 Creatinine 0.67 Est GFR ( Amer) > 60 Est GFR (Non-Af Amer) > 60 Glucose 97 Calcium 8.5 Magnesium 1.9 Impressions: Hip X-Ray 05/03/18 19:14 IMPRESSION: Osteopenia. Acute impacted fracture of the left femoral neck. Chest X-Ray 05/03/18 20:12 IMPRESSION: COPD. NO ACUTE RADIOGRAPHIC FINDING IN THE CHEST. Pelvis X-Ray 05/04/18 15:29 IMPRESSION: SATISFACTORY POSTOPERATIVE PELVIS. Status: Imported from PACS Assessment & Plan - Diagnosis (1) Closed left hip fracture Qualifiers: Encounter type: initial encounter Qualified Code(s): S72.002A - Fracture of unspecified part of neck of left femur, initial encounter for closed fracture Is this a current diagnosis for this admission?: Yes Plan: Patient can continue with physical therapy and weightbearing as tolerated basis. Anticipate the need for [facility] facility placement.
[2018-05-07] MEDS: FAMOTIDINE INJ/PF 20 MG/2 ML SDV IV SCH ×2 (11:09→12:10)
--- NOTE | 2018-05-07 14:33 | PDOC TRANSFER SUMMARY ---
General - Admit/Disc Date/PCP Admission Date/Primary Care Provider: 05/03/18 21:51 CINDY KEARNS PA-C Discharge Date: 05/07/18 - Discharge Diagnosis (1) Closed left hip fracture Is this a current diagnosis for this admission?: Yes Summary: Repaired by Dr. Stephens. Follow-up after discharge from correction facility. Continue physical and occupational therapy at the correction facility. Patient did fall and break her hip. Monitor for falls. Her postoperative prophylaxis will be with Xarelto 10 mg daily. (2) Hyponatremia Is this a current diagnosis for this admission?: Yes Summary: Continue 1.5 L fluid restriction (3) Hypertension Is this a current diagnosis for this admission?: Yes Summary: The patient is on hydrochlorothiazide and losartan at home. These have been resumed. Her blood pressure should start to increase as her activity increases. It is doubtful that she will be hypertensive but please monitor the patient. - Additional Information Resuscitation Status: Full Code Discharge Diet: Regular Discharge Activity: Other - Per orthopedic surgery recommendation Prescriptions: Rivaroxaban [Xarelto 10 mg Tablet] 10 mg PO DAILY 30 Days #30 tablet Tramadol HCl [Ultram 50 mg Tablet] 50 mg PO Q6HP PRN #10 tablet PRN Reason: For Pain Home Medications: Cetirizine HCl [Zyrtec 10 mg Tablet] 10 mg PO DAILY 05/03/18 Losartan Potassium 50 mg PO DAILY 05/03/18 Cyanocobalamin (Vitamin B-12) [Vitamin B-12 1000 mcg Tablet] 1,000 mcg PO DAILYP PRN 05/04/18 Docusate Sodium [Stool Softener] 100 mg PO BIDP PRN 05/04/18 Ergocalciferol (Vitamin D2) [Drisdol 50,000 unit (1.25MG) Capsule] 1 cap PO [id number] 05/04/18 Hydrochlorothiazide [Hydrodiuril 12.5 mg Tablet] 12.5 mg PO DAILYP PRN 05/04/18 Multivit-Min/Iron/Folic/Lutein [Centrum Silver Women Tablet] 1 each PO DAILY Acetaminophen [Tylenol 650 mg Supp] 650 mg WI Q4HP PRN supp.rect 05/07/18 Rivaroxaban [Xarelto 10 mg Tablet] 10 mg PO DAILY 30 Days #30 tablet 05/07/18 Tramadol HCl [Ultram 50 mg Tablet] 50 mg PO Q6HP PRN #10 tablet 05/07/18 History of Present Illness Admission Date/PCP: 05/03/18 21:51 CINDY KEARNS PA-C Patient complains of: Hip pain History of Present Illness: SANTIAGO GLEZ is a 87 year old female who uses a walker at home. She went to turn with her walker tripped and fell. She immediately had significant hip pain. She was unable to ambulate. She called rescue and presented to the emergency department where she was found to have a Hospital Course Hospital Course: The patient's hospital course was punctuated by periods of confusion. I believe these were related to medication more than anything. She has had reasonable pain control. She has begun working with physical therapy but she is very limited at this time. She is however ready to transition to correction facility for ongoing care and therapy. She did develop mild hyponatremia and this will be treated conservatively with a 1.5 L fluid restriction. Physical Exam Vital Signs: Temp Pulse Resp BP Pulse Ox 98.5 F 80 16 130/69 H 97 05/07/18 12:00 05/07/18 12:00 05/07/18 12:00 05/07/18 12:00 05/07/18 12:00 Intake & Output 05/06/18 05/07/18 05/08/18 06:59 06:59 06:59 Intake Total 3162 1000 Balance 3162 1000 Weight 55.5 kg 55.5 kg General appearance: PRESENT: no acute distress, cooperative, well-developed Respiratory exam: PRESENT: clear to auscultation ableardo, symmetrical, unlabored, other - Occasional congested cough. ABSENT: accessory muscle use, prolonged expiratory phas, rales, rhonchi, wheezes Cardiovascular exam: PRESENT: RRR, +S1, +S2 GI/Abdominal exam: PRESENT: normal bowel sounds, soft. ABSENT: tenderness Musculoskeletal exam: ABSENT: ambulatory Neurological exam: PRESENT: alert, awake, oriented to person, oriented to place, oriented to situation, CN II-XII grossly intact Psychiatric exam: PRESENT: appropriate affect, normal mood. ABSENT: agitated, anxious Focused psych exam: ABSENT: restlessness Results Laboratory Results: 05/06/18 04:02 05/06/18 04:02 Impressions: Hip X-Ray 05/03/18 19:14 IMPRESSION: Osteopenia. Acute impacted fracture of the left femoral neck. Chest X-Ray 05/03/18 20:12 IMPRESSION: COPD. NO ACUTE RADIOGRAPHIC FINDING IN THE CHEST. Pelvis X-Ray 05/04/18 15:29 IMPRESSION: SATISFACTORY POSTOPERATIVE PELVIS. Transfer Plan - Disposition Transfer Plan: The patient will transfer to [facility]. She will receive ongoing physical therapy as well as monitoring and adjustment of her medications if necessary. - Time Spent with Patient Time spent with patient: Greater than 30 Minutes Qualifiers - * PATIENT BEING DISCHARGED WITH ANY OF THE FOLLOWING DIAGNOSIS: No Plan Discharge Plan: Transferred to Health system Time Spent: Greater than 30 Minutes
[2018-05-07 16:11] VITALS: BP 164/80
== END 2018-05-07 18:00 | DRG 470 ==
LOC: ER 19:04 → EH 21:51 → 4N 23:00
PROVIDERS: ADMIT Emergency Medicine; ATTEND Emergency Medicine
PROC: 0SRB02A Replacement of Left Hip Joint with Metal on Polyethylene Synthetic Substitute, Uncemented, Open Approach (ICD-10-PCS; principal; 2018-05-04 15:00)
DX: S72.002A Fracture of unspecified part of neck of left femur, initial encounter for closed fracture (principal); E87.1 Hypo-osmolality and hyponatremia; W01.0XXA Fall on same level from slipping, tripping and stumbling without subsequent striking against object, initial encounter; I10 Essential (primary) hypertension; Y92.019 Unspecified place in single-family (private) house as the place of occurrence of the external cause; M85.852 Other specified disorders of bone density and structure, left thigh; I48.91 Unspecified atrial fibrillation; E78.00 Pure hypercholesterolemia, unspecified; Z60.2 Problems related to living alone; Z79.899 Other long term (current) drug therapy; Z90.49 Acquired absence of other specified parts of digestive tract; Z90.710 Acquired absence of both cervix and uterus; Z88.6 Allergy status to analgesic agent; Z88.0 Allergy status to penicillin; Z82.49 Family history of ischemic heart disease and other diseases of the circulatory system
CPT/HCPCS: 01210; 36415; 51702; 71045; 72170; 80048; 80053; 81001; 83735; 84443; 85025; 85610; 85730; 88305; 88311; 93005; 93010; 96374; 96375; 96376; 99285; C1776; G8978-GP; G8979-GP; G8987-GO; G8988-GO; J1644; J2250; J2270; J2405; J2704; J3010; J3370; J3490; J7060; J7120; S0028

== ENCOUNTER → 2018-10-01 | Outpatient (CLI) | payer MEDICARE, OTHER ==
--- NOTE | 2018-10-01 13:25 | WOMENS IMAGING REPORT ---
EXAM DESCRIPTION: BONE DENSITY HIP/SPINE COMPLETED DATE/TIME: 10/01/2018 1:12 pm REASON FOR STUDY: M81.0 M81.0 AGE-RELATED OSTEOPOROSIS W/O CURRENT PATHOLOGICAL FRAC COMPARISON: 2012 TECHNIQUE: Dual-Energy X-ray Absorptiometry (DEXA) of the AP Spine and Hip. LIMITATIONS: None. FINDINGS: LUMBAR SPINE: The bone mineral density (BMD) measured from L1-L4 in the AP projection correlates with a T-score of -1.5, which is osteopenia as defined by the World Health Organization. HIP: The bone mineral density (BMD) measured in the left hip correlates with a T-score of -3.3, which is o steoporosis as defined by the World Health Organization. IMPRESSION: 1. LUMBAR SPINE: OSTEOPENIA. 2. HIP: OSTEOPOROSIS. COMMENT: The World Health Organization defines low BMD as follows: T-score: Normal: Greater than -1.0 Osteopenia: Between -1.0 and -2.5 Osteoporosis: Less than -2.5 without fractures Established osteoporosis: Less than -2.5 with fractures In general, you may wish to consider: Diagnosis Treatment Follow-up DEXA Normal BMD Prevention 2-3 years Osteopenia Prevention/Therapy 1-2 years Osteoporosis Therapy Yearly TECHNICAL DOCUMENTATION: JOB ID: [id number] [employer]- All Rights Reserved Reading location - IP/workstation name: [email or web address]
== END ==
LOC: WI 12:41
PROVIDERS: ATTEND Physician Assistant
DX: M81.0 Age-related osteoporosis without current pathological fracture (principal)
CPT/HCPCS: 77080

== ENCOUNTER 2019-02-10 09:21 | Inpatient (IN) | payer MEDICARE, OTHER ==
[2019-02-10] MEDS ORDERED: NORMAL SALINE 1000 ML 1,000 ML IV ONE (09:51)
[2019-02-10 09:56] LABS: ABSOLUTE LYMPHOCYTES (AUTO) 0.2 10^3/uL (0.5-4.7); ABSOLUTE NEUT (AUTO) 3.3 10^3/uL (1.7-8.2); BASOPHILS % (AUTO) 0.4 % (0-2); EOSINOPHILS % (AUTO) 0.4 % (0-6); HEMATOCRIT 38.4 % (36.0-47.0); HEMOGLOBIN 13.2 g/dL (12.0-15.5); LYMPHOCYTES % (AUTO) 5.3 % (13-45); MEAN CORPUSCULAR HEMOGLOBIN 28.9 pg (27.0-33.4); MEAN CORPUSCULAR HGB CONC 34.4 g/dL (32.0-36.0); MEAN CORPUSCULAR VOLUME 84 fl (80-97); MONOCYTES % (AUTO) 0.3 % (3-13); PLATELET COUNT 207 10^3/uL (150-450); RED BLOOD COUNT 4.57 10^6/uL (3.72-5.28); RED CELL DISTRIBUTION WIDTH 14.7 % (11.5-14.0); SEGMENTED NEUTROPHILS % (AUTO) 93.6 % (42-78); TOTAL CELLS COUNTED % (AUTO) 100 %; WHITE BLOOD COUNT 3.5 10^3/uL (4.0-10.5)
--- NOTE | 2019-02-10 09:57 | ER Document Report ---
ED General - General Chief Complaint: Nausea Stated Complaint: NAUSEA Time Seen by Provider: 02/10/19 09:41 Primary Care Provider: CINDY KEARNS PA-C [Primary Care Provider] - Follow up as needed Information source: Patient Notes: HPI: 88-year-old female that comes from EMS secondary to feeling "nausea" with some decreased appetite over the last 2 to 3 days. No vomiting, diarrhea, or fevers. She complains of no chest pain or cough. Patient does state this morning while lying in bed she had diffuse upper and lower extremity bilateral "spasms". Lasting around 2 minutes. No aggravating relieving factors. She states now that the pain is mostly "settled" in the left lateral hip. History of prosthetic hip replacement April of this past year by the orthopedic surgeon Dr. Stephens. She denies any weakness or numbness to the extremities. She denies any headache or neck pain. EMS ordered a lactic acid for unknown reasons showing 3.8. Patient was supposedly also tachycardic and having some hypoxia. Long history of smoking but no formal diagnosis of COPD/emphysema/asthma. ROS: See HPI All other review of systems reviewed and otherwise negative Reviewed vital signs and nursing note as charted by RN. PHYSICAL EXAM: CONSTITUTIONAL: Alert and oriented and responds appropriately to questions. Well-appearing; well-nourished HEAD: Normocephalic; atraumatic EYES: PERRL; Conjunctivae clear, sclerae non-icteric ENT: Normal nose; no rhinorrhea; moist mucous membranes; pharynx without lesions noted NECK: Supple without meningismus; non-tender; no cervical lymphadenopathy, no masses CARD: Tachycardic and irregular; no murmurs; symmetric distal pulses RESP: Normal chest excursion without splinting or tachypnea; patient has bilateral end expiratory wheezing without rales or rhonchi ABD/GI: Normal bowel sounds; non-distended; soft, non-tender; no abdominal brui ts or palpable masses BACK: The back appears normal and is non-tender to palpation EXT: There is slight decreased range of motion secondary to pain in her left lateral hip. Old surgical scar present. No swelling, erythema, or induration. Neurovascularly intact distally with excellent pulses, capillary refill, and plantar and extension strength of the foot. No calf pain or tenderness SKIN: No acute lesions noted NEURO: CN 2-12 intact; 5/5 bilateral upper and lower extremity strength with sensation intact to light touch PSYCH: The patient's mood and manner are appropriate. Grooming and personal hygiene are appropriate. TRAVEL OUTSIDE OF THE [place] IN LAST 30 DAYS: No - Related Data Allergies/Adverse Reactions: ibuprofen Allergy (Severe, Verified 05/04/18 09:35) hydrocodone Allergy (Verified 05/04/18 09:35) Penicillins Allergy (Verified 05/04/18 09:35) gabapentin Adverse Reaction (Severe, Verified 05/04/18 09:35) Past Medical History - Social History Smoking Status: Former Smoker Family History: Hypertension - Past Medical History Cardiac Medical History: Reports: Hx Atrial Fibrillation, Hx Hypercholesterolemia, Hx Hypertension Denies: Hx Coronary Artery Disease, Hx Heart Attack Pulmonary Medical History: Reports: Hx Pneumonia - 1998 AFTER SURGERY Denies: Hx Asthma, Hx Bronchitis, Hx COPD Neurological Medical History: Denies: Hx Cerebrovascular Accident, Hx Seizures Endocrine Medical History: Denies: Hx Diabetes Mellitus Type 1, Hx Diabetes Mellitus Type 2, Hx Hyperthyroidism, Hx Hypothyroidism Renal/ Medical History: Denies: Hx Peritoneal Dialysis GI Medical History: Reports: Hx Hiatal Hernia. Denies: Hx Cirrhosis, Hx Hepatitis, Hx Ulcer Musculoskeletal Medical History: Reports Hx Arthritis, Denies Hx Gout, Reports Hx Musculoskeletal Trauma Skin Medical History: Denies Hx Eczema, Denies Hx Psoriasis Psychiatric Medical History: Denies: Hx Depression Traumatic Medical History: Reports: Hx Fractures Infectious Medical History: Denies: Hx Hepatitis Past Surgical History: Reports: Hx Breast Surgery - biopsy, Hx Cholecystectomy, Hx Gynecologic Surgery, Hx Hysterectomy, Hx Thyroid Surgery, Other - Breast biopsy. Denies: Hx Mastectomy, Hx Open Heart Surgery, Hx Pacemaker - Immunizations Hx Diphtheria, Pertussis, Tetanus Vaccination: Yes - Mar Hx Pneumococcal Vaccination: 06/20/03 Physical Exam - Vital signs Vitals: Temp 98.9 F 02/10/19 09:29 Course - Re-evaluation Re-evalutation: 02/10/19 09:56 EKG shows a heart of 118, irregular sinus tachycardia with what appears to be a right bundle branch block and a left posterior fascicular block. I did call and consult the lease attendant regarding the EKG as I believe it possibly could be atrial fibrillation with rapid ventricular response. Blood pressure stable. On oxygen the patient is satting 98%. She denies any chest pain or shortness of breath. I will order cardiac panel, x-ray of the chest, lactic acid, Doppler ultrasound of the left lower extremity, and reassess. PE is possible. Patient has been afebrile and I do believe sepsis to be unlikely. Patient does have wheezing bilaterally slightly but she is tachycardic. I would like to assess for the possibility of weight related or myocardial induced heart failure before I provide nebulizers in this elderly tachycardic patient in no acute respiratory distress. Patient is DNR/DNI. 02/10/19 10:37 Initial labs as recorded. X-ray of the hip and ultrasound of the left lower extremity shows no obvious fractures or DVT. 02/10/19 11:13 Rn Camp called me back and states that he believes what he is seeing his multifocal atrial tachycardia. This does correlate with the patient's wheezing. Patient denies any history of COPD. X-ray of the chest shows otherwise. I have provided magnesium as well as a nebulizer. BNP as recorded. Heart rate has improved. The lease attendant also advised me to start the patient on a small Cardizem drip. Blood pressure and heart rate as recorded. Patient will be admitted to the hospitalist service for further evaluation and treatment. - Vital Signs Vital signs: Temp Pulse Resp BP Pulse Ox 98.9 F 17 121/53 L 91 L 02/10/19 09:31 02/10/19 10:16 02/10/19 09:31 02/10/19 10:16 - Laboratory Result Diagrams: 02/10/19 09:25 02/10/19 09:25 Laboratory results interpreted by me: 02/10/19 02/10/19 02/10/19 09:25 09:25 09:25 WBC 3.5 L RDW 14.7 H Lymph % (Auto) 5.3 L [place] % (Auto) 0.3 L Absolute Lymphs (auto) 0.2 L Absolute Monos (auto) 0.0 L Seg Neutrophils % 93.6 H Sodium 132.7 L Chloride 97 L NT-Pro-B Natriuret Pep 776 H Critical Care Note - Critical Care Note Total time excluding time spent on procedures (mins): 35 Discharge - Discharge Clinical Impression: Multifocal atrial tachycardia, Wheezing Condition: Fair Disposition: ADMITTED INPATIENT Admitting Provider: Ashlee (Hospitalist) Unit Admitted: IMCU Referrals: CINDY KEARNS PA-C [Primary Care Provider] - Follow up as needed
[2019-02-10 10:02] LABS: ANION GAP 10 (5-19); BLOOD UREA NITROGEN 16 mg/dL (7-20); CALCIUM 9.2 mg/dL (8.4-10.2); CARBON DIOXIDE 26 mmol/L (22-30); CHLORIDE 97 mmol/L (98-107); GLUCOSE 110 mg/dL (75-110); POTASSIUM 3.8 mmol/L (3.6-5.0)
[2019-02-10 10:14] LABS: NT PRO BNP 776 pg/mL (<450)
[2019-02-10 10:18] LABS: TROPONIN I < 0.012 ng/mL
[2019-02-10 10:22] LABS: INTERNATIONAL RATION (INR) 1.07; PROTHROMBIN TIME 13.9 SEC (11.4-15.4)
[2019-02-10] MEDS ORDERED: ONDANSETRON HCL INJ/PF 4 MG/2 ML SDV IV ONE (10:30)
--- NOTE | 2019-02-10 10:36 | RADIOLOGY REPORT (SQ) ---
EXAM DESCRIPTION: HIP LEFT AP/LATERAL COMPLETED DATE/TIME: 02/10/2019 10:19 am REASON FOR STUDY: 17; left hip pain COMPARISON: 05/03/2018 NUMBER OF VIEWS: Two views. TECHNIQUE: AP pelvis and additional frog-leg view of the left hip. LIMITATIONS: None. FINDINGS: MINERALIZATION: Decreased. LEFT HIP: No definite acute fracture dislocation. Bipolar hemiarthroplasty. RIGHT HIP: No fracture or dislocation. No worrisome bone lesions. PUBIS AND ISCHIUM: Evidence prior left superior and inferior pubic rami fractures. Sclerotic focus o verlies right ilium, likely bone islands and unchanged SACRUM: No fracture or dislocation. No worrisome bone lesions. LOWER LUMBAR SPINE: No fracture or dislocation. No worrisome bone lesions. No significant disc disea se. SOFT TISSUES: No findings. OTHER: No other significant finding. IMPRESSION: Decreased osseous mineralization. Left hip arthroplasty without evidence of acute bony abnormality. COMMENT: Pelvic fractures are often occult on plain radiographs. If strong clinical suspicion for fracture, recommend CT or MR. TECHNICAL DOCUMENTATION: JOB ID: [id number] [employer]- All Rights Reserved Reading location - IP/workstation name: [email or web address]
[2019-02-10] MEDS ORDERED: MAGNESIUM SULFATE/D5W 1 GM/100 ML RTUPB IV ONE (10:40)
[2019-02-10] MEDS ORDERED: DILTIAZEM HCL INJ 25 MG/5 ML VIAL IV ONE (10:41)
[2019-02-10] MEDS ORDERED: DILTIAZEM HCL/D5W 125 MG/125 ML RTUINJ IV PRN (10:41)
--- NOTE | 2019-02-10 10:42 | RADIOLOGY REPORT (SQ) ---
EXAM DESCRIPTION: CHEST 2 VIEWS COMPLETED DATE/TIME: 02/10/2019 10:19 am REASON FOR STUDY: 17; low o2; tachy COMPARISON: 05/03/2018 EXAM PARAMETERS: NUMBER OF VIEWS: two views TECHNIQUE: Digital Frontal and Lateral radiographic views of the chest acquired. RADIATION DOSE: NA LIMITATIONS: none FINDINGS: LUNGS AND PLEURA: Emphysematous change with flattening of the hemidiaphragm and hyperlucen cy. No focal consolidation, pleural effusion or pneumothorax. MEDIASTINUM AND HILAR STRUCTURES: Large hiatal hernia with gas fluid level. HEART AND VASCULAR STRUCTURES: Enlarged cardiac silhouette, stable. Aortic atherosclerosis. BONES: Decreased mineralization. Compression deformities of multiple lower thoracic vertebral bodies which appears similar to exam dated 05/03/2018. HARDWARE: None in the chest. OTHER: No other significant finding. IMPRESSION: 1. Emphysematous change without evidence of acute cardiopulmonary process. Stable enla rged cardiac silhouette. 2. Large hiatal hernia with associated gas fluid level. 3. Compression deformities of multiple lower thoracic vertebral bodies. Findings appear similar to exam dated 05/03/2018. Recommend correlation with symptoms. TECHNICAL DOCUMENTATION: JOB ID: [id number] [employer]- All Rights Reserved Reading location - IP/workstation name: [email or web address]
[2019-02-10] MEDS ORDERED: IPRATROPIUM/ALBUTEROL 0.5-2.5 MG/3 ML AMPUL NEB SCH (10:45)
--- NOTE | 2019-02-10 11:25 | EKG REPORT ---
SEVERITY:- ABNORMAL ECG - SINUS WITH INTERMITTENT A FIB/FLUTTER VS FREQUENT APCs, REC REPEAT EKG RBBB AND LPFB : Confirmed by: Rita Armenta 10-Feb-2019 11:24:33
--- NOTE | 2019-02-10 12:11 | XCELERA REPORT ---
[address] [place] [facility] [id number] Lower Extremity Venous Evaluation Procedure: Color flow and duplex imaging of the veins of the left lower extremity as well as the right Common Femoral vein. Right Sided Venous Evaluation The right common femoral vein is fully compressible. Spontaneous and phasic flow is present in the right common femoral vein. Left Sided Venous Evaluation Normal vessel filling wall to wall, compression and augmentation as well as Colour flow down to the infrageniculate veins. Interpretation Summary No duplex evidence of DVT or obstruction in the left lower extremity nor in the right Common Femoral vein. Name: SANTIAGO GLEZ Age: 88 yrs Gender: Female : 1930 Patient Status: Emergency Patient Location: ER Study Date: 02/10/2019 10:23 AM Reason For Study: 17; LLe Ordering Physician: LEDY FLETCHER Performed By: Mali Phillips : LEDY FLETCHER > Tre [place]
[2019-02-10 12:30] LABS: ARTERIAL BLOOD BASE EXCESS -3.1 mmol/L; ARTERIAL BLOOD H2CO3 1.05 mmol/L (1.05-1.35); ARTERIAL BLOOD PCO2 34.8 mmHg (35-45); ARTERIAL BLOOD PO2 80.4 mmHg (80-100); ARTERIAL BLOOD TOTAL CO2 22.1 mmol/L (21-25)
[2019-02-10 12:31] LABS: ARTERIAL BLOOD FIO2 2L
[2019-02-10] MEDS: LEVALBUTEROL HCL NEB 0.63 MG/3 ML AMPUL NEB SCH ×2 (13:59→20:37)
[2019-02-10 17:33] LABS: APPEARANCE,URINE SLIGHTLY-CLOUDY; BILIRUBIN,URINE NEGATIVE (NEGATIVE); COLOR,URINE YELLOW; GLUCOSE, URINE NEGATIVE (NEGATIVE); KETONES,URINE TRACE mg/dL (NEGATIVE); LEUKOCYTE ESTERASE,URINE MODERATE (NEGATIVE); NITRITE,URINE POSITIVE (NEGATIVE); PROTEIN,URINE NEGATIVE (NEGATIVE); URINE SPECIFIC GRAVITY 1.012; UROBILINOGEN,URINE NEGATIVE mg/dL (<2.0)
--- NOTE | 2019-02-10 18:59 | PDOC H&P ---
History of Present Illness Admission Date/PCP: 02/10/19 11:34 CINDY KEARNS PA-C History of Present Illness: SANTIAGO GLEZ is a 88 year old female whose presentation, interestingly enough, h ad nothing to do with the reason why she is being admitted. Apparently the family called EMS because the patient had pain in the same leg where she had hip surgery not long ago, and it was painful enough she could move her leg. They called EMS and somehow EMS checked a lactate that was 3.8, when they repeated in the ER it was 1.5. When they get in the ER, she is got a little bit of wheezing on examination, and she is in multifocal atrial tachycardia on EKG. On further questioning, she said that she has been a little more short of breath than usual lately. She has not had any orthopnea or any leg swelling. She does not have any history of CHF. She has a remote history of smoking but quit many years ago, around 25 years ago. On her chest x-ray she did appear to have some emphysematous change. She is being admitted for management of her mild COPD exacerbation and for MAT. Past Medical History Cardiac Medical History: Reports: Atrial Fibrillation, Hyperlipidema, Hypertension Denies: Coronary Artery Disease, Myocardial Infarction Pulmonary Medical History: Reports: Pneumonia - 1997 AFTER SURGERY Denies: Asthma, Bronchitis, Chronic Obstructive Pulmonary Disease (COPD) Neurological Medical History: Denies: Seizures Endocrine Medical History: Denies: Diabetes Mellitus Type 1, Diabetes Mellitus Type 2, Hyperthyroidism, Hypothyroidism GI Medical History: Reports: Hiatal Hernia Denies: Cirrhosis, Hepatitis Musculoskeltal Medical History: Reports: Arthritis Denies: Gout Skin Medical History: Denies: Eczema, Psoriasis Psychiatric Medical History: Denies: Depression Hematology: Reports: Anemia Denies: Sickle Cell Disease, Bleeding Tendencies Past Surgical History Past Surgical History: Reports: Cholecystectomy, Hysterectomy, Other - Breast biopsy Denies: Amputation, Mastectomy, Pacemaker Social History Smoking Status: Former Smoker Frequency of Alcohol Use: None Hx Recreational Drug Use: No Drugs: None Hx Prescription Drug Abuse: No - Advance Directive Resuscitation Status: Do Not Resuscitate Family History Family History: Hypertension Parental Family History Reviewed: Yes - Hypertension Children Family History Reviewed: Yes - Hypertension, hyperlipidemia Sibling(s) Family History Reviewed.: Yes - Hypertension, COPD Medication/Allergy Home Medications: Cetirizine HCl [Zyrtec 10 mg Tablet] 10 mg PO HSP PRN 02/10/19 Cyanocobalamin (Vitamin B-12) [Vitamin B-12] 1,000 mcg PO DAILY 02/10/19 Docusate Sodium [Colace 100 mg Capsule] 100 mg PO DAILY 02/10/19 Ergocalciferol (Vitamin D2) [Drisdol 50,000 Unit (1.25MG) Capsule] 50,000 unit PO .QMONTHLY MDD FIRST OF THE MONTH 02/10/19 Hydrochlorothiazide [Hydrodiuril 25 mg Tablet] 25 mg PO QAM 02/10/19 Losartan Potassium [Cozaar 50 mg Tablet] 50 mg PO NOON 02/10/19 Meclizine HCl [Antivert 25 mg Tablet] 25 mg PO Q8HP PRN 02/10/19 Multivit-Min/Iron/Folic/Lutein [Centrum Silver Women Tablet] 1 each PO DAILY 02/10/19 Allergies/Adverse Reactions: ibuprofen Allergy (Severe, Verified 05/04/18 09:35) hydrocodone Allergy (Verified 05/04/18 09:35) Penicillins Allergy (Verified 05/04/18 09:35) gabapentin Adverse Reaction (Severe, Verified 05/04/18 09:35) Review of Systems All systems: reviewed and no additional remarkable complaints except as stated - All systems were reviewed and were negative except as noted in the HPI Physical Exam Vital Signs: Temp Pulse Resp BP Pulse Ox 97.4 F 84 18 135/48 H 98 02/10/19 16:58 02/10/19 18:32 02/10/19 16:58 02/10/19 16:58 02/10/19 16:58 Intake & Output 02/09/19 02/10/19 02/11/19 06:59 06:59 06:59 Intake Total 1119 Output Total 500 Balance 619 Weight 62.1 kg General appearance: PRESENT: no acute distress, cooperative, disheveled Head exam: ABSENT: atraumatic, normocephalic Eye exam: PRESENT: EOMI, PERRLA. ABSENT: conjunctival injection, nystagmus, scleral icterus Ear exam: PRESENT: normal external ear exam Mouth exam: PRESENT: moist, neck supple Throat exam: ABSENT: post pharyngeal erythema Neck exam: PRESENT: full ROM. ABSENT: carotid bruit, JVD, lymphadenopathy, meningismus, tenderness, thyromegaly Respiratory exam: PRESENT: prolonged expiratory phas, symmetrical, unlabored, wheezes - Expiratory. ABSENT: accessory muscle use, chest wall tenderness, crackles, rales, rhonchi, tachypnea Cardiovascular exam: PRESENT: irregular rhythm Pulses: PRESENT: normal carotid pulses Vascular exam: PRESENT: normal capillary refill GI/Abdominal exam: PRESENT: soft. ABSENT: distended, guarding, normal bowel sounds, rebound, tenderness Extremities exam: ABSENT: clubbing, pedal edema Musculoskeletal exam: PRESENT: normal inspection. ABSENT: deformity Neurological exam: PRESENT: alert, awake, oriented to person, oriented to place, oriented to situation, CN II-XII grossly intact. ABSENT: motor sensory deficit Psychiatric exam: PRESENT: appropriate affect, normal mood Skin exam: PRESENT: dry, warm Results Laboratory Results: 02/10/19 09:25 02/10/19 09:25 02/10/19 02/10/19 02/10/19 09:25 09:25 12:14 WBC 3.5 L RBC 4.57 Hgb 13.2 Hct 38.4 MCV 84 MCH 28.9 MCHC 34.4 RDW 14.7 H Plt Count 207 Seg Neutrophils % 93.6 H Carbonic Acid HCO3/H2CO3 Ratio ABG pH ABG pCO2 ABG pO2 ABG HCO3 ABG O2 Saturation ABG Base Excess FiO2 Sodium 132.7 L Potassium 3.8 Chloride 97 L Carbon Dioxide 26 Anion Gap 10 BUN 16 Creatinine 0.82 Est GFR ( Amer) > 60 Glucose 110 Lactic Acid 1.5 Calcium 9.2 Urine Color Urine Appearance Urine pH Ur Specific [place] Urine Protein Urine Glucose (UA) Urine Ketones Urine Blood Urine Nitrite Ur Leukocyte Esterase Urine WBC (Auto) Urine RBC (Auto) 02/10/19 02/10/19 12:14 16:45 WBC RBC Hgb Hct MCV MCH MCHC RDW Plt Count Seg Neutrophils % Carbonic Acid 1.05 HCO3/H2CO3 Ratio 20:1 ABG pH 7.40 ABG pCO2 34.8 L ABG pO2 80.4 ABG HCO3 21.0 ABG O2 Saturation 96.0 ABG Base Excess -3.1 FiO2 2L Sodium Potassium Chloride Carbon Dioxide Anion Gap BUN Creatinine Est GFR ( Amer) Glucose Lactic Acid Calcium Urine Color YELLOW Urine Appearance SLIGHTLY-CLOUDY Urine pH 6.0 Ur Specific [place] 1.012 Urine Protein NEGATIVE Urine Glucose (UA) NEGATIVE Urine Ketones TRACE H Urine Blood SMALL H Urine Nitrite POSITIVE H Ur Leukocyte Esterase MODERATE H Urine WBC (Auto) 51 Urine RBC (Auto) 1 02/10/19 09:25 Troponin I < 0.012 NT-Pro-B Natriuret Pep 776 H Impressions: Chest X-Ray 02/10/19 09:49 IMPRESSION: 1. Emphysematous change without evidence of acute cardiopulmonary process. Stable enlarged cardiac silhouette. 2. Large hiatal hernia with associated gas fluid level. 3. Compression deformities of multiple lower thoracic vertebral bodies. Findings appear similar to exam dated 05/03/2018. Recommend correlation with symptoms. Hip X-Ray 02/10/19 09:50 IMPRESSION: Decreased osseous mineralization. Left hip arthroplasty without evidence of acute bony abnormality. Assessment and Plan - Diagnosis (1) Multifocal atrial tachycardia Is this a current diagnosis for this admission?: Yes Plan: She is on a Cardizem drip. I suspect that this was triggered by her mild flare of COPD. We will get a get an echocardiogram to see if she got evidence of pulmonary hypertension with atrial dilation. Once we get her heart rate under better control will try to transition her over to some oral Cardizem. (2) COPD with acute exacerbation Is this a current diagnosis for this admission?: Yes Plan: She had emphysematous change on her chest x-ray. She does not appear to need steroids at this point, some to see if I can get this under control with just some nebulizer treatments. If this works, will send her home with a rescue inhaler and follow-up with her primary care provider to see if she needs to initiate maintenance therapy. - Time Time Spent with patient: 35 or more minutes - Inpatient Certification Based on my medical assessment, after consideration of the patient's comorbidities, presenting symptoms, or acuity I expect that the services needed warrant INPATIENT care.: Yes I certify that my determination is in accordance with my understanding of Medicare's requirements for reasonable and necessary INPATIENT services [42 CFR 412.3e].: Yes Medical Necessity: Significant Comorbidiites Make Outpatient Treatment Too Risky, Need For Continuous Telemetry Monitoring, Need for Nebulizer Therapy and Monitoring of Response, Risk of Complication if Not Cared For in Hospital - Plan Summary Plan Summary: Of note, she does not have any more pain in her leg or hip and she can move the leg again, and the examination was unremarkable.
[2019-02-10] MEDS ORDERED: ONDANSETRON HCL INJ/PF 4 MG/2 ML SDV IV PRN (19:19)
[2019-02-10] MEDS: DILTIAZEM HCL 60 MG TABLET PO SCH (20:15)
[2019-02-10] MEDS ORDERED: ACETAMINOPHEN 325 MG TABLET ONE (21:35)
[2019-02-10] MEDS: ACETAMINOPHEN 325 MG TABLET PO PRN (21:37)
[2019-02-11] MEDS: DILTIAZEM HCL 60 MG TABLET PO SCH ×5 (00:47→23:39)
[2019-02-11] MEDS: LEVALBUTEROL HCL NEB 0.63 MG/3 ML AMPUL NEB SCH ×4 (02:07→21:09)
[2019-02-11] MEDS: ACETAMINOPHEN 325 MG TABLET PO PRN ×2 (06:37→23:41)
[2019-02-11 07:14] LABS: HEMOGLOBIN 11.2 g/dL (12.0-15.5); MEAN CORPUSCULAR HEMOGLOBIN 29.4 pg (27.0-33.4); MEAN CORPUSCULAR HGB CONC 35.1 g/dL (32.0-36.0); MEAN CORPUSCULAR VOLUME 84 fl (80-97); PLATELET COUNT 146 10^3/uL (150-450); RED BLOOD COUNT 3.81 10^6/uL (3.72-5.28)
[2019-02-11 07:21] LABS: WHITE BLOOD COUNT 16.9 10^3/uL (4.0-10.5)
[2019-02-11 07:41] LABS: ANION GAP 8 (5-19); BLOOD UREA NITROGEN 20 mg/dL (7-20); CALCIUM 8.2 mg/dL (8.4-10.2); CARBON DIOXIDE 24 mmol/L (22-30); CHLORIDE 100 mmol/L (98-107); GLUCOSE 79 mg/dL (75-110)
--- NOTE | 2019-02-11 09:13 | EKG REPORT ---
SEVERITY:- BORDERLINE ECG - SINUS RHYTHM BORDERLINE RIGHT AXIS DEVIATION CONSIDER ANTERIOR INFARCT VS LEAD PLACEMENT BORDERLINE T ABNORMALITIES, DIFFUSE LEADS : Confirmed by: Rita Armenta 11-Feb-2019 09:12:45
[2019-02-11] MEDS: ENOXAPARIN SODIUM INJ 30 MG/0.3 ML DISP.SYRIN SUBCUT SCH (09:43)
--- NOTE | 2019-02-11 16:13 | PDOC PROGRESS REPORT ---
Subjective Progress Note for:: 02/11/19 Subjective:: No adverse events overnight. No new complaints. They were going to the echocardiogram yesterday but she was little sick to her stomach at times today repeated today. She converted to a sinus rhythm and we switched her over to oral medication today. She was able to be on room air and tolerated that. She said her leg is not hurting her to bad today. Reason For Visit: MULTIFOCAL ATRIAL TACHYCARDIA,AECOPD Physical Exam Vital Signs: Temp Pulse Resp BP Pulse Ox 97.6 F 76 16 113/48 L 94 02/11/19 10:45 02/11/19 14:08 02/11/19 14:08 02/11/19 10:45 02/11/19 14:08 Intake & Output 02/10/19 02/11/19 02/12/19 06:59 06:59 06:59 Intake Total 1191 Output Total 500 Balance 691 Weight 62.3 kg General appearance: PRESENT: no acute distress, cooperative, disheveled Respiratory exam: PRESENT: symmetrical, unlabored, wheezes - Expiratory but faint. ABSENT: accessory muscle use, chest wall tenderness, crackles, prolonged expiratory phase, rales, rhonchi, tachypnea Cardiovascular exam: PRESENT: RRR Pulses: PRESENT: normal carotid pulses Vascular exam: PRESENT: normal capillary refill GI/Abdominal exam: PRESENT: soft. ABSENT: distended, guarding, normal bowel sounds, rebound, tenderness Extremities exam: ABSENT: clubbing, pedal edema Musculoskeletal exam: PRESENT: normal inspection. ABSENT: deformity Neurological exam: PRESENT: alert, awake, oriented to person, oriented to place, oriented to situation, CN II-XII grossly intact. ABSENT: motor sensory deficit Psychiatric exam: PRESENT: appropriate affect, normal mood Skin exam: PRESENT: dry, warm Results Laboratory Results: 02/11/19 05:51 02/11/19 05:51 02/10/19 02/11/19 02/11/19 16:45 05:51 05:51 WBC 16.9 H D RBC 3.81 Hgb 11.2 L Hct 32.0 L MCV 84 MCH 29.4 MCHC 35.1 RDW 15.0 H Plt Count 146 L Sodium 132.0 L Potassium 4.0 Chloride 100 Carbon Dioxide 24 Anion Gap 8 BUN 20 Creatinine 0.90 Est GFR ( Amer) > 60 Glucose 79 Calcium 8.2 L Urine Color YELLOW Urine Appearance SLIGHTLY-CLOUDY Urine pH 6.0 Ur Specific [place] 1.012 Urine Protein NEGATIVE Urine Glucose (UA) NEGATIVE Urine Ketones TRACE H Urine Blood SMALL H Urine Nitrite POSITIVE H Ur Leukocyte Esterase MODERATE H Urine WBC (Auto) 51 Urine RBC (Auto) 1 02/10/19 09:25 Troponin I < 0.012 NT-Pro-B Natriuret Pep 776 H Impressions: Chest X-Ray 02/10/19 09:49 IMPRESSION: 1. Emphysematous change without evidence of acute cardiopulmonary process. Stable enlarged cardiac silhouette. 2. Large hiatal hernia with associated gas fluid level. 3. Compression deformities of multiple lower thoracic vertebral bodies. Findings appear similar to exam dated 05/03/2018. Recommend correlation with symptoms. Hip X-Ray 02/10/19 09:50 IMPRESSION: Decreased osseous mineralization. Left hip arthroplasty without evidence of acute bony abnormality. Assessment and Plan - Diagnosis (1) Multifocal atrial tachycardia Is this a current diagnosis for this admission?: Yes Plan: Converted to a sinus rhythm. Cardizem drip is off and she is on oral short acting Cardizem. We will transition her to long-acting version at discharge. Official echocardiogram read is pending, but the preliminary report does not appear to show anything new compared to her last one. (2) COPD with acute exacerbation Is this a current diagnosis for this admission?: Yes Plan: She has not needed steroids which is fortunate. We have been given her bronchodilators here and she sounds better compared to yesterday, but she does have some persistent end expiratory wheezing. She does not feel short of breath. We will make sure she has an inhaler at discharge and follows up with her primary care provider about this. - Time Time Spent with patient: 15-24 minutes
[2019-02-11] MEDS ORDERED: DILTIAZEM HCL 60 MG TABLET PO SCH (19:30)
[2019-02-12] MEDS: LEVALBUTEROL HCL NEB 0.63 MG/3 ML AMPUL NEB SCH ×2 (01:59→07:56)
[2019-02-12 05:19] LABS: HEMATOCRIT 32.2 % (36.0-47.0); HEMOGLOBIN 11.3 g/dL (12.0-15.5); MEAN CORPUSCULAR HEMOGLOBIN 29.3 pg (27.0-33.4); MEAN CORPUSCULAR HGB CONC 34.9 g/dL (32.0-36.0); MEAN CORPUSCULAR VOLUME 84 fl (80-97); PLATELET COUNT 132 10^3/uL (150-450); RED BLOOD COUNT 3.85 10^6/uL (3.72-5.28); RED CELL DISTRIBUTION WIDTH 15.1 % (11.5-14.0); WHITE BLOOD COUNT 9.9 10^3/uL (4.0-10.5)
[2019-02-12 05:38] LABS: ANION GAP 6 (5-19); BLOOD UREA NITROGEN 18 mg/dL (7-20); CALCIUM 8.2 mg/dL (8.4-10.2); CARBON DIOXIDE 25 mmol/L (22-30); CHLORIDE 102 mmol/L (98-107); GLUCOSE 88 mg/dL (75-110)
[2019-02-12] MEDS: DILTIAZEM HCL 60 MG TABLET PO SCH (05:55)
[2019-02-12] MEDS ORDERED: DILTIAZEM HCL 240 MG CAPSULE.CR PO SCH (10:00)
[2019-02-12] MEDS: ENOXAPARIN SODIUM INJ 30 MG/0.3 ML DISP.SYRIN SUBCUT SCH (10:00)
[2019-02-12 12:10] VITALS: BP 108/44
--- NOTE | 2019-02-12 15:40 | PDOC DISCHARGE SUMMARY ---
Impression - Admit/DC Date/PCP Admission Date/Primary Care Provider: 02/10/19 11:34 CINDY KEARNS PA-C Discharge Date: 02/12/19 - Discharge Diagnosis (1) Multifocal atrial tachycardia Is this a current diagnosis for this admission?: Yes (2) COPD with acute exacerbation Is this a current diagnosis for this admission?: Yes - Additional Information Resuscitation Status: Do Not Resuscitate Discharge Diet: Cardiac Discharge Activity: Activity As Tolerated, Supervised Activity Referrals: CINDY KEARNS PA-C [Primary Care Provider] - 02/22/19 2:30 pm (1 week) Prescriptions: Diltiazem HCl [Cardizem Cd 240 mg Capsule.cr] 240 mg PO DAILY #30 capsule.cr Nystatin [Mycostatin Cream 15 gm] 1 applic TP BID #15 gm Home Medications: Cetirizine HCl [Zyrtec 10 mg Tablet] 10 mg PO HSP PRN 02/10/19 Cyanocobalamin (Vitamin B-12) [Vitamin B-12] 1,000 mcg PO DAILY 02/10/19 Docusate Sodium [Colace 100 mg Capsule] 100 mg PO DAILY 02/10/19 Ergocalciferol (Vitamin D2) [Drisdol 50,000 unit (1.25MG) Capsule] 50,000 unit PO .QMONTHLY MDD FIRST OF THE MONTH 02/10/19 Meclizine HCl [Antivert 25 mg Tablet] 25 mg PO Q8HP PRN 02/10/19 Multivit-Min/Iron/Folic/Lutein [Centrum Silver Women Tablet] 1 each PO DAILY 0 02/10/19 Diltiazem HCl [Cardizem Cd 240 mg Capsule.cr] 240 mg PO DAILY #30 capsule.cr 02/12/19 Nystatin [Mycostatin Cream 15 gm] 1 applic TP BID #15 gm 02/12/19 History of Present Illiness History of Present Illness: SANTIAGO GLEZ is a 88 year old female whose presentation, interestingly enough, had nothing to do with the reason why she is being admitted. Apparently the family called EMS because the patient had pain in the same leg where she had hip surgery not long ago, and it was painful enough she could move her leg. They called EMS and somehow EMS checked a lactate that was 3.8, when they repeated in the ER it was 1.5. When they get in the ER, she is got a little bit of wheezing on examination, and she is in multifocal atrial tachycardia on EKG. On further questioning, she said that she has been a little more short of breath than usual lately. She has not had any orthopnea or any leg swelling. She does not have any history of CHF. She has a remote history of smoking but quit many years ago, around 25 years ago. On her chest x-ray she did appear to have some emphysematous change. She is being admitted for management of her mild COPD exacerbation and for MAT. Hospital Course Hospital Course: She improved very nicely on Cardizem. We were able to transition her over to oral Cardizem, initially the short acting version with an easy transition to the long-acting form. Her bronchospasm responded very well to bronchodilators without the use of steroids. She was seen and evaluated by physical therapy who recommended home health PT. The appropriate arrangements were made she was discharged home in good condition. Physical Exam Vital Signs: Temp Pulse Resp BP Pulse Ox 97.4 F 78 16 108/44 L 100 02/12/19 12:02 02/12/19 12:02 02/12/19 12:02 02/12/19 12:02 02/12/19 12:02 Intake & Output 02/11/19 02/12/19 02/13/19 06:59 06:59 06:59 Intake Total 1191 700 Output Total 500 Balance 691 700 Weight 62.3 kg 64.9 kg General appearance: PRESENT: no acute distress, cooperative, disheveled Respiratory exam: PRESENT: symmetrical, unlabored, wheezes - Expiratory but faint. ABSENT: accessory muscle use, chest wall tenderness, crackles, prolonged expiratory phase, rales, rhonchi, tachypnea Cardiovascular exam: PRESENT: RRR Pulses: PRESENT: normal carotid pulses Vascular exam: PRESENT: normal capillary refill GI/Abdominal exam: PRESENT: soft. ABSENT: distended, guarding, normal bowel sounds, rebound, tenderness Extremities exam: ABSENT: clubbing, pedal edema Musculoskeletal exam: PRESENT: normal inspection. ABSENT: deformity Neurological exam: PRESENT: alert, awake, oriented to person, oriented to place, oriented to situation, CN II-XII grossly intact. ABSENT: motor sensory deficit Psychiatric exam: PRESENT: appropriate affect, normal mood Skin exam: PRESENT: dry, warm Results Laboratory Results: WBC 9.9 10^3/uL (4.0-10.5) 02/12/19 04:29 RBC 3.85 10^6/uL (3.72-5.28) 02/12/19 04:29 Hgb 11.3 g/dL (12.0-15.5) L 02/12/19 04:29 Hct 32.2 % (36.0-47.0) L 02/12/19 04:29 MCV 84 fl (80-97) 02/12/19 04:29 MCH 29.3 pg (27.0-33.4) 02/12/19 04:29 MCHC 34.9 g/dL (32.0-36.0) 02/12/19 04:29 RDW 15.1 % (11.5-14.0) H 02/12/19 04:29 Plt Count 132 10^3/uL (150-450) L 02/12/19 04:29 Lymph % (Auto) 5.3 % (13-45) L 02/10/19 09:25 [place] % (Auto) 0.3 % (3-13) L 02/10/19 09:25 Eos % (Auto) 0.4 % (0-6) 02/10/19 09:25 Baso % (Auto) 0.4 % (0-2) 02/10/19 09:25 Absolute Neuts (auto) 3.3 10^3/uL (1.7-8.2) 02/10/19 09:25 Absolute Lymphs (auto) 0.2 10^3/uL (0.5-4.7) L 02/10/19 09:25 Absolute Monos (auto) 0.0 10^3/uL (0.1-1.4) L 02/10/19 09:25 Absolute Eos (auto) 0.0 10^3/uL (0.0-0.6) 02/10/19 09:25 Absolute Basos (auto) 0.0 10^3/uL (0.0-0.2) 02/10/19 09:25 Seg Neutrophils % 93.6 % (42-78) H 02/10/19 09:25 PT 13.9 SEC (11.4-15.4) 02/10/19 09:25 INR 1.07 02/10/19 09:25 Carbonic Acid 1.05 mmol/L (1.05-1.35) 02/10/19 12:14 HCO3/H2CO3 Ratio 20:1 02/10/19 12:14 ABG pH 7.40 (7.35-7.45) 02/10/19 12:14 ABG pCO2 34.8 mmHg (35-45) L 02/10/19 12:14 ABG pO2 80.4 mmHg (80-100) 02/10/19 12:14 ABG HCO3 21.0 mmol/L (20-24) 02/10/19 12:14 ABG Total CO2 22.1 mmol/L (21-25) 02/10/19 12:14 ABG O2 Saturation 96.0 % (94-98) 02/10/19 12:14 ABG Base Excess -3.1 mmol/L 02/10/19 12:14 FiO2 2L 02/10/19 12:14 Sodium 133.2 mmol/L (137-145) L 02/12/19 04:29 Potassium 4.0 mmol/L (3.6-5.0) 02/12/19 04:29 Chloride 102 mmol/L (98-107) 02/12/19 04:29 Carbon Dioxide 25 mmol/L (22-30) 02/12/19 04:29 Anion Gap 6 (5-19) 02/12/19 04:29 BUN 18 mg/dL (7-20) 02/12/19 04:29 Creatinine 0.86 mg/dL (0.52-1.25) 02/12/19 04:29 Est GFR ( Amer) > 60 (>60) 02/12/19 04:29 Est GFR (MDRD) Non-Af > 60 (>60) 02/12/19 04:29 Glucose 88 mg/dL (75-110) 02/12/19 04:29 POC Glucose 148 mg/dL (70-110) H 02/11/19 15:27 Lactic Acid 1.5 mmol/L (0.7-2.1) 02/10/19 12:14 Calcium 8.2 mg/dL (8.4-10.2) L 02/12/19 04:29 Troponin I < 0.012 ng/mL 02/10/19 09:25 NT-Pro-B Natriuret Pep 776 pg/mL (<450) H 02/10/19 09:25 Urine Color YELLOW 02/10/19 16:45 Urine Appearance SLIGHTLY-CLOUDY 02/10/19 16:45 Urine pH 6.0 (5.0-9.0) 02/10/19 16:45 Ur Specific [place] 1.012 02/10/19 16:45 Urine Protein NEGATIVE mg/dL (NEGATIVE) 02/10/19 16:45 Urine Glucose (UA) NEGATIVE mg/dL (NEGATIVE) 02/10/19 16:45 Urine Ketones TRACE mg/dL (NEGATIVE) H 02/10/19 16:45 Urine Blood SMALL (NEGATIVE) H 02/10/19 16:45 Urine Nitrite POSITIVE (NEGATIVE) H 02/10/19 16:45 Urine Bilirubin NEGATIVE (NEGATIVE) 02/10/19 16:45 Urine Urobilinogen NEGATIVE mg/dL (<2.0) 02/10/19 16:45 Ur Leukocyte Esterase MODERATE (NEGATIVE) H 02/10/19 16:45 Urine WBC (Auto) 51 /HPF 02/10/19 16:45 Urine RBC (Auto) 1 /HPF 02/10/19 16:45 Urine Bacteria (Auto) 1+ /HPF 02/10/19 16:45 Squamous Epi Cells Auto 1 /HPF 02/10/19 16:45 Urine Mucus (Auto) RARE /LPF 02/10/19 16:45 Urine Ascorbic Acid NEGATIVE (NEGATIVE) 02/10/19 16:45 02/10/19 09:25 Troponin I < 0.012 NT-Pro-B Natriuret Pep 776 H Impressions: Chest X-Ray 02/10/19 09:49 IMPRESSION: 1. Emphysematous change without evidence of acute cardiopulmonary process. Stable enlarged cardiac silhouette. 2. Large hiatal hernia with associated gas fluid level. 3. Compression deformities of multiple lower thoracic vertebral bodies. Findings appear similar to exam dated 05/03/2018. Recommend correlation with symptoms. Hip X-Ray 02/10/19 09:50 IMPRESSION: Decreased osseous mineralization. Left hip arthroplasty without evidence of acute bony abnormality. Plan Time Spent: Greater than 30 Minutes Stroke Is this a Stroke Patient?: No Acute Heart Failure - Is this a Heart Failure Patient?: No
--- NOTE | 2019-02-14 16:08 | XCELERA REPORT ---
[address] [address] Transthoracic Echocardiogram Report Name: SANTIAGO GLEZ Age: 88 yrs Gender: Female : 1930 Patient Status: Inpatient Patient Location: [address] [place], [place] [address]A Study Date: 02/11/2019 02:52 PM Height: 65 in Weight: 134 lb BSA: 1.7 m2 Procedure: A two-dimensional transthoracic echocardiogram with color flow and Doppler was performed. The study was technically difficult with many images being suboptimal in quality. Reason For Study: TACHYCARDIA History: TACHYCARDIA. Ordering Physician: ALESHA SNOW Performed By: Kamila Coleman Interpretation Summary The left ventricle is normal in size. There is normal left ventricular wall thickness. LV EF is > than 65% The left ventricular ejection fraction is within normal limits. Doppler measurements suggest impaired left ventricular relaxation, which is associated with grade I/IV or mild diastolic dysfunction The left ventricular wall motion is normal. There is no thrombus. robably no ASD ,VSD ,or PFO seen. The right ventricle is grossly normal size. The right atrium is normal. The left atrial size is normal. There is no evidence of mitral valve prolapse. There is no vegetation seen on the mitral valve. There is no mitral valve stenosis. There is a trace amount of mitral regurgitation There is no aortic valvular vegetation. There is aortic sclerosis without aortic stenosis. There is no LVOT obstruction. No aortic regurgitation is present. There is no tricuspid stenosis. There is a trace to mild amount of tricuspid regurgitation There is moderate pulmonary hypertension by echo RVSP is atleast 52 mm of Hg , with RA mean at least 20. There is no pulmonic valvular stenosis. There is a trace amount of pulmonic regurgitation The aortic root is normal size. The inferior vena cava appeared dilated and did not change with respiration (RAP > 20 mmHg) There is no pericardial effusion. MMode/2D Measurements & Calculations RVDd: 2.5 cm LVIDd: 3.9 cm FS: 42.1 % Ao root diam: 2.6 cm IVSd: 0.83 cm LVIDs: 2.3 cm EDV(Teich): 67.7 ml Ao root area: 5.4 cm2 LVPWd: 0.96 cm ESV(Teich): 17.8 ml EF(Teich): 73.7 % Doppler Measurements & Calculations MV E max mer: MV dec slope: LV V1 max PG: PA V2 max: 85.6 cm/sec 460.4 cm/sec2 6.7 mmHg 97.3 cm/sec MV A max mer: MV dec time: 0.19 secLV V1 max: PA max P.3 cm/sec 129.1 cm/sec 3.8 mmHg MV E/A: 0.89 PI end-d mer: TR max mer: 74.9 cm/sec 281.6 cm/sec TR max P.9 mmHg Left Ventricle The left ventricle is normal in size. There is normal left ventricular wall thickness. LV EF is > than 65%. The left ventricular ejection fraction is within normal limits. Doppler measurements suggest impaired left ventricular relaxation, which is associated with grade I/IV or mild diastolic dysfunction. The left ventricular wall motion is normal. There is no thrombus. robably no ASD ,VSD ,or PFO seen. Right Ventricle The right ventricle is grossly normal size. The right ventricle is not well visualized secondary to technical limitations. Atria The right atrium is normal. The left atrial size is normal. Mitral Valve There is no evidence of mitral valve prolapse. There is no vegetation seen on the mitral valve. There is no mitral valve stenosis. There is a trace amount of mitral regurgitation. Aortic Valve There is no aortic valvular vegetation. There is aortic sclerosis without aortic stenosis. There is no LVOT obstruction. No aortic regurgitation is present. Tricuspid Valve There is no tricuspid stenosis. There is a trace to mild amount of tricuspid regurgitation. There is moderate pulmonary hypertension by echo. RVSP is atleast 52 mm of Hg , with RA mean at least 20. Pulmonic Valve There is no pulmonic valvular stenosis. There is a trace amount of pulmonic regurgitation. Great Vessels The aortic root is normal size. The inferior vena cava appeared dilated and did not change with respiration (RAP > 20 mmHg). Effusions There is no pericardial effusion. : ALESHA SNOW Lakshmi
== END 2019-02-12 12:39 | disposition home health service (06) | DRG 309 ==
LOC: ER 09:21 → EH 11:34 → 3W 16:26
PROVIDERS: ADMIT Family Medicine; ATTEND Family Medicine
PROC: 3E0F3GC Introduction of Other Therapeutic Substance into Respiratory Tract, Percutaneous Approach (ICD-10-PCS; principal; 2019-02-10)
DX: I47.1 Supraventricular tachycardia (principal); J44.1 Chronic obstructive pulmonary disease with (acute) exacerbation; D64.9 Anemia, unspecified; I48.91 Unspecified atrial fibrillation; Z66 Do not resuscitate; E78.5 Hyperlipidemia, unspecified; I10 Essential (primary) hypertension; K44.9 Diaphragmatic hernia without obstruction or gangrene; M19.90 Unspecified osteoarthritis, unspecified site; Z87.891 Personal history of nicotine dependence; Z88.6 Allergy status to analgesic agent; Z88.0 Allergy status to penicillin; Z83.6 Family history of other diseases of the respiratory system; Z82.49 Family history of ischemic heart disease and other diseases of the circulatory system; Z83.438 Family history of other disorder of lipoprotein metabolism and other lipidemia
CPT/HCPCS: 36415; 71046; 80048; 81001; 82803; 82962; 83605; 83880; 84484; 85025; 85027; 85610; 93005; 93010; 93306; 93971; 96361; 96374; 99291; J2405; J3475; J3490; J7030; J7614; J7620